=== PATIENT | female | born 1945 | race Caucasian/White ===

== ENCOUNTER → 2016-06-27 | Day surgery (SDC) | payer BC, MEDICARE ==
[~2016-06-27] VITALS: Ht 162.6 cm; Wt 66.7 kg
[~2016-06-27] MED LIST: /WARF25TA; ACET65TA; ALEV220C2 PO; CALCCHW12; IBUPROFEN 600 MG TAB PO PRN; LIDOCAINE 1% MDV 20ML VIAL As Ordered ONE; LIDOCAINE 2% INJ 100 MG/5 ML SDV (FOR ANES.) As Ordered ONE; LR 1,000 ML IV SCH; METOCLOPRAMIDE INJ 10MG/2ML VIAL (J2765) IV PRN; MIDAZOLAM INJ 2 MG/2 ML VIAL (J2250) As Ordered ONE; MULT1TAB18 PO; OMEP20CA3 PO; ONDANSETRON 4MG/2ML VIAL (J2405) IV PRN; PERC5TAB8; PERCOCET 5MG/325MG TAB PO PRN; PRAV10TA PO; PRIL20CA; PROPOFOL 200 MG/20 ML VIAL As Ordered ONE; PROZ20CA; RANI1TAB6 PO; THERGRAN; VITA100054 PO; ZOLO100T PO; fentaNYL 100 MCG/2 ML INJECTION (J3010) As Ordered ONE
[2016-06-27 16:50] VITALS: BP 159/66
--- NOTE | 2016-06-28 08:48 | RO ---
DATE OF PROCEDURE: 06/27/2016 PREPROCEDURE DIAGNOSIS: Thickened endometrium by ultrasound. POSTPROCEDURE DIAGNOSIS: Small polyp. PROCEDURE: Paracervical block with dilation and curettage, MyoSure resection. SURGEON: Dr. Sarah Walker CLINIC PHYSICIAN: ANESTHESIA: Monitored anesthesia care (MAC) with paracervical block. DESCRIPTION OF PROCEDURE: Chandni was brought to the operating room where she was carefully prepped and draped and given sedation. With the cervix then carefully grasped, because she has marked atrophy of the vagina. The regular speculum would not fit, so the pediatric speculum was taken apart and used for the back wall. Then the cervix was grasped under palpation and brought down. A paracervical block of 20 mL in total of 1% lidocaine without was given in 5 mL aliquots at 2, 4, 8 and 10-oclock positions of the cervix. We then waited a full minute for that to set up. Then carefully dilated the cervix. We did not feel any resistance or difficulty but upon placing the hysteroscope in the posterior wall of the uterus at the fold, there was a small perforation. We could see there was no significant bleeding. This is midline, did not appear particularly vascular and we were able to slide pass that with the scope fairly readily and see a normal fundus, normal tubal ostia, and on the left side of the fundus a very small polypoid projections of tissue. These actually looked like endometrial polyps more than fibroids. They really had no solidity and came off with the MyoSure light without difficulty. We were able to sample this atrophic lining quite readily and there was nothing particularly aggressive or vascular. No ulcerations. No hypertrophy, just those tiny soft polyps. We also were able, under direct visualization to sample the endocervical canal so we were able quite readily to safely sample and because of that angle of that tiny perforation, we were able to slide past it and under direct visualization, sample all the way down the canal without any interruption and without any significant deficit, a few 100 mL of saline, so nothing untoward even in this 70-year-old patient. We then decided not to do a blind curettage because we had samples everywhere with the MyoSure under guided sampling and the procedure was then ended. As already noted, we were able to watch that site of small perforation and see that there was no significant bleeding. We removed all of the instruments. Estimated blood loss for the procedure was less than 5 mL. Fluid replacement was Crystalloid. Complications ___none other than__as noted___small perforation not requiring repair or alteration of the procedure. CONDITION AND DISPOSITIONS: Chandni tolerated the procedure well and was recovering in the recovery room in good condition. LEOLA
== END ==
LOC: M SDC 11:00
PROVIDERS: ATTEND Obstetrics & Gynecology
DX: N84.0 Polyp of corpus uteri (principal); N99.71 Accidental puncture and laceration of a genitourinary system organ or structure during a genitourinary system procedure; J44.9 Chronic obstructive pulmonary disease, unspecified; K21.9 Gastro-esophageal reflux disease without esophagitis; F32.9 Major depressive disorder, single episode, unspecified; F41.9 Anxiety disorder, unspecified; M19.90 Unspecified osteoarthritis, unspecified site; N39.3 Stress incontinence (female) (male); M81.0 Age-related osteoporosis without current pathological fracture; Z86.718 Personal history of other venous thrombosis and embolism; K22.70 Barrett's esophagus without dysplasia; R05 Cough; F17.210 Nicotine dependence, cigarettes, uncomplicated; Z79.899 Other long term (current) drug therapy
CPT/HCPCS: 58558; 88305; J2250; J3010

== ENCOUNTER 2017-01-04 09:41 | Emergency (ER) | payer BC ==
[~2017-01-04] VITALS: Ht 162.6 cm; Wt 63.6 kg
[~2017-01-04 09:41] MED LIST changes: -IBUPROFEN 600 MG TAB PO PRN; -LIDOCAINE 1% MDV 20ML VIAL As Ordered ONE; -LIDOCAINE 2% INJ 100 MG/5 ML SDV (FOR ANES.) As Ordered ONE; -LR 1,000 ML IV SCH; -METOCLOPRAMIDE INJ 10MG/2ML VIAL (J2765) IV PRN; -MIDAZOLAM INJ 2 MG/2 ML VIAL (J2250) As Ordered ONE; -ONDANSETRON 4MG/2ML VIAL (J2405) IV PRN; -PERCOCET 5MG/325MG TAB PO PRN; -PRAV10TA PO; +PRAV10TA4 PO; -PROPOFOL 200 MG/20 ML VIAL As Ordered ONE; -fentaNYL 100 MCG/2 ML INJECTION (J3010) As Ordered ONE
[2017-01-04] MEDS ORDERED: BRIM2OPD (09:53)
[2017-01-04] MEDS ORDERED: LATA5OPD (09:53)
[2017-01-04] MEDS ORDERED: PERCOCET 5MG/325MG TAB PO ONE (10:15)
--- NOTE | 2017-01-04 10:56 | REP ---
LUMBOSACRAL SPINE: Five views lumbosacral spine are performed. There is no compression fracture. There is mild anterior spondylolisthesis of L4 on L5 which appears to be due to posterior facet arthropathy. There is mild diffuse spurring. There is mild disc space narrowing and subchondral sclerosis at L4-5. There is sclerosis at the facets of L4-5 and L5-S1. The posterior elements are intact. IMPRESSION: Degenerative changes as above, Without acute fracture. Mild anterior spondylolisthesis of L4 on L5 appears to be due to posterior facet arthropathy that is unchanged since the prior CT scan of 03/16/2016. Signed by Mike Lutz MD 01/04/2017 05:41 P
[2017-01-04] MEDS ORDERED: CYCLOBENZAPRINE 10 MG TAB PO ONE (11:00)
[2017-01-04] MEDS ORDERED: PERC5TAB12 PO (11:56)
[2017-01-04] MEDS ORDERED: CYCL10TA PO (11:56)
[2017-01-04 12:04] VITALS: BP 152/88
== END 2017-01-04 12:06 | disposition home or self-care (01) ==
LOC: M ED 09:41
DX: S33.5XXA Sprain of ligaments of lumbar spine, initial encounter (principal); W18.2XXA Fall in (into) shower or empty bathtub, initial encounter; Y92.002 Bathroom of unspecified non-institutional (private) residence as the place of occurrence of the external cause; Y93.F1 Activity, caregiving, bathing; Y99.8 Other external cause status; M43.16 Spondylolisthesis, lumbar region; M19.90 Unspecified osteoarthritis, unspecified site; E78.5 Hyperlipidemia, unspecified; K21.9 Gastro-esophageal reflux disease without esophagitis; F32.9 Major depressive disorder, single episode, unspecified; I49.9 Cardiac arrhythmia, unspecified; Z79.899 Other long term (current) drug therapy

== ENCOUNTER 2019-12-05 18:40 | Emergency (ER) | payer BC ==
[~2019-12-05] VITALS: Ht 162.6 cm; Wt 64.3 kg
[~2019-12-05 18:40] MED LIST changes: -/WARF25TA; +BRIM2OPD; +COUM1TAB18; +CYCL-707 PO; +LATA0.0013; +OMEP1CAP73 PO; -OMEP20CA3 PO; +PERC5TAB12 PO; +RANI-397 PO; -RANI1TAB6 PO
[2019-12-05] MEDS ORDERED: FAMO40TA3 PO (19:03)
[2019-12-05] MEDS ORDERED: OMEP-218 PO (19:03)
[2019-12-05] MEDS ORDERED: XELP0.00 (19:03)
--- NOTE | 2019-12-05 19:27 | REPVR ---
PROCEDURE INFORMATION: Exam: XR Right Ribs with PA Chest, 3 Views Exam date and time: 12/05/2019 7:07 PM Age: 74 years old Clinical indication: Pain and injury or trauma; Fall; Initial encounter; Rib area; Sprain or strain; Other: Anterior pain TECHNIQUE: Imaging protocol: XR Right ribs 3 views with PA chest. COMPARISON: No relevant prior studies available. FINDINGS: Lungs: Atelectasis right costophrenic angle. Otherwise unremarkable. No consolidation. Pleural space: Unremarkable. Heart/Mediastinum: Unremarkable. No cardiomegaly. Bones/joints: Degenerative changes in the right glenohumeral and acromioclavicular joints. Osteoporosis. Slight indentation of the right 7th rib may represent a minimally displaced fracture. IMPRESSION: Slight indentation of the right 7th rib may represent a minimally displaced fracture. Electronically signed by: Edilberto Huddleston On 12/05/2019 19:27:25 PM
--- NOTE | 2019-12-05 19:29 | REPVR ---
PROCEDURE INFORMATION: Exam: XR Right Wrist Exam date and time: 12/05/2019 7:07 PM Age: 74 years old Clinical indication: Pain and injury or trauma; Fall; Initial encounter; Sprain or strain; Wrist; Right TECHNIQUE: Imaging protocol: XR Right wrist. Views: 3 or more views. COMPARISON: No relevant prior studies available. FINDINGS: Bones/joints: Distal radial and small distal ulnar fractures. Corticated ossicle at the level of the ulnar styloid likely secondary to remote trauma. Osteoporosis. Degenerative changes in the radiocarpal joint and triscaphe joint. Soft tissues: Normal. IMPRESSION: Distal radial and small distal ulnar fractures. Electronically signed by: Edilberto Huddleston On 12/05/2019 19:29:40 PM
[2019-12-05] MEDS ORDERED: NORC1TAB7 PO (20:24)
[2019-12-05] MEDS ORDERED: NORCO, ANEXSIA 5/325MG TABLET (HYDROcodone/ACETAMINOPHEN) PO ONE (20:30)
[2019-12-05 20:45] VITALS: BP 183/80
== END 2019-12-05 20:58 | disposition home or self-care (01) ==
LOC: M ED 18:40
DX: S52.501A Unspecified fracture of the lower end of right radius, initial encounter for closed fracture (principal); S52.601A Unspecified fracture of lower end of right ulna, initial encounter for closed fracture; S22.31XA Fracture of one rib, right side, initial encounter for closed fracture; W01.0XXA Fall on same level from slipping, tripping and stumbling without subsequent striking against object, initial encounter; Y92.098 Other place in other non-institutional residence as the place of occurrence of the external cause; Y93.01 Activity, walking, marching and hiking; Y99.8 Other external cause status; F17.200 Nicotine dependence, unspecified, uncomplicated; J44.9 Chronic obstructive pulmonary disease, unspecified; E78.5 Hyperlipidemia, unspecified; K21.9 Gastro-esophageal reflux disease without esophagitis; M54.9 Dorsalgia, unspecified; F32.9 Major depressive disorder, single episode, unspecified; Z79.899 Other long term (current) drug therapy

== ENCOUNTER 2020-05-04 07:11 | Inpatient (IN) | payer MEDICARE, BC ==
[~2020-05-04] VITALS: Ht 160 cm; Wt 62.5 kg
[~2020-05-04 07:11] MED LIST changes: +D3 +TAB PO; +FAMO40TA3 PO; +NORC1TAB7 PO; +OMEP-218 PO; +REFR0.5D8 OU; +XELP0.00 OU
--- OUTSIDE RECORDS SUMMARY | 2020-05-04 07:16 | CCD ---
Continuity of Care Document (CCD) Created on: 02/12/2020 Chandni Patton External Reference #: [id number] : 1945 Sex: Female Author Author Chandni CAMEJO PA Organization Unknown Address [address] [place] [address], [address] [address] Phone [phone] Care Team Providers Care Charrer Name Role Phone Abhinav Bonilla MD AUTM [phone] Caridad Olivera MD AUTM [phone] Sean Webber MD AUTM [phone] Problems Active Problems Provider Date Spinal stenosis of lumbar region Onset: 02/04/1999 Social History Type Date Description Comments Sex Unknown ETOH Use Occasionally consumes alcohol Tobacco Use Start: Unknown Patient is a current smoker, smo kes every day 1/2 pack a day Allergies, Adverse Reactions, Alerts Description No Known Drug Allergies Medications Active Medications SIG Qnty Indications Ordering Provide r Date Gel-One 30mg/3ML Prsy gel-one injection zhang knee's 02/04/2020 Iid/Ag. Juan Manuel Mtichell MD 02/04/2020 Zoloft 25mg Tablets Unknown Preservision Areds 2 Areds 2 Capsu les 1 by mouth every day Unknown Vitamin D 25mcg (1000 Ut) Tablets 1 by mouth every day Unknown History Medications Tramadol HCL 50mg Tablets 1 every 6 hours as needed pain 18tabs S52.571A D. Misbah Suarez MD 020 - 12/07/2019 Immunizations Description No Information Available Vital Signs Date Vital Result Comment 01/28/2020 9:03am Body Temperature 97.3 F Height 63 inches 5'3" Weight 140.00 lb BMI (Body Mass Index) 24.8 kg/m2 12/08/2019 9:17am Body Temperature 97.0 F Height 64 inches 5'4" Weight 145.00 lb BMI (Body Mass Index) 24.9 kg/m2 Results Description No Information Available Procedures Date Code Description Status 02/04/2020 Inject/Drain Joint/Bursa Major C ompleted 01/28/2020 31297 X-Ray Knee Complete W/Obliques & Tunnel And/Or Standing Views Completed 01/28/2020 16531 X-Ray Hip Unilateral With Pelvis 2-3 Views Completed 01/28/2020 75096 Inject/Drain Joint/Bursa Major C ompleted 01/26/2020 95877 X-Ray Wrist Ap & Lateral 2 Views Completed 12/30/2019 89684 X-Ray Wrist Ap & Lateral 2 Views Completed 12/08/2019 00708 X-Ray Wrist Complete Completed 12/08/2019 60421 FX Distal Radius W/O Manipulatio n Completed Medical Devices Description No Information Available Encounters Type Date Location Provider Dx Diagnosis Office Visit 01/28/2020 8:45a [place] [facility] M17.0 Bilateral primary osteoarthritis of knee 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, left hip Office Visit 01/26/2020 1:15p [place] [facility] S52.571D Oth intartic fx low end r rad, subs for clos fx w routn heal Office Visit 12/08/2019 8:30a [place] [facility] S52.571A Oth intartic fracture of lower end of right radius, init Assessments Date Code Description Provider 02/04/2020 M17.0 Bilateral primary osteoarthritis of knee [place] [facility] 01/28/2020 M17.0 Bilateral primary osteoarthritis of knee [place] [facility] 01/28/2020 M16.12 Unilateral primary osteoarthriti s, left hip [place] [facility] 01/26/2020 S52.571D Other intraarticular fracture of lower end of right radius, subsequent encounter for closed fracture with routine healing [place] [facility] 01/26/2020 S52.571D Other intraarticular fracture of lower end of right radius, subsequent encounter for closed fracture with routine healing [place] [facility] 12/30/2019 S52.571D Other intraarticular fracture of lower end of right radius, subsequent encounter for closed fracture with routine healing [place] [facility] 12/08/2019 S52.571A Other intraarticular fracture of lower end of right radius, initial encounter for closed fracture [place] [facility] Plan of Treatment Future Appointment(s):* 02/25/2020 11:30 am - [facility] at [place] * 02/18/2020 8:30 am - [facility] at [place] 01/28/2020 - [place] [facility]* M17.0 Bilateral primary osteoarthritis of knee * New Orders:* Gel-one Bilateral Knee Injection, Ordered: 01/28/20 * Follow up:* 4 weeks with IID for lt knee recheck * M16.12 Unilateral primary osteoarthritis, left hip Functional Status Description No Information Available Mental Status Description No Information Available Referrals Refer to Dr Reason for Referral Status Appt Date Terence Camejo Pac GEL-ONE INJECTION , 71 NO AUTH REQD BASE ON MED [facility], BUY AND BILL, REF#[id number] PER REHANA, SENT TO SCHED..LD Created [address] [facility] [address] [place] [address] [phone] Terence Camejo Pac L [address] [employer] - Right No authorization required. Patient responsible for 15% Created 0 [address] [facility] [address] [place] [address] [phone]
--- OUTSIDE RECORDS SUMMARY | 2020-05-04 07:16 | CCD | Continuity of Care Document ---
Author Author Rona CAMEJO PA Organization Unknown Address [address] [place] [address], [address] [address] Phone [phone] Care Team Providers Care [employer] Developer Name Role Phone Abhinav Bonilla MD AUTM [phone] Caridad Olivera MD AUTM Sean Webber MD AUTM [phone] Problems Active Problems Provider Date Spinal stenosis [...] injection zhang knee's 02/04/2020 Iid/Ag. Juan Manuel Mitchell MD 02/04/2020 Zoloft 25mg Tablets Unknown Preservision [...] Available Vital Signs Date Vital Result Comment 02/18/2020 8:55am Body Temperature 96.8 F 01/28/2020 9:03am Body Temperature 97.3 F Height 63 inches 5'3" Weight 140.00 lb BMI (Body Mass Index) 24.8 kg/m2 Results Description No Information Available Procedures Date Code Description Status 02/18/2020 83046 X-Ray Wrist Ap & Lateral 2 Views Completed 02/04/2020 13721 Inject/Drain Joint/Bursa Major C ompleted 01/28/2020 11499 X-Ray Knee Complete W/Obliques & Tunnel And/Or Standing Views Completed 01/28/2020 91525 X-Ray Hip Unilateral With Pelvis 2-3 Views Completed 01/28/2020 63668 Inject/Drain Joint/Bursa Major C ompleted 01/26/2020 68671 X-Ray Wrist Ap & Lateral 2 Views Completed 12/30/2019 64499 X-Ray Wrist Ap & Lateral 2 Views Completed 12/08/2019 61159 X-Ray Wrist Complete Completed 12/08/2019 66178 FX Distal Radius W/O Manipulatio n Completed Medical Devices Description No Information Available Encounters Type Date Location Provider Dx Diagnosis Office Visit 02/18/2020 8:30a [place] [facility] S52.571D Oth intartic fx low end r rad, subs for clos fx w routn heal Office Visit 01/28/2020 8:45a [place] [facility] M17.0 Bilateral primary osteoarthritis of knee 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, left hip Office Visit 01/26/2020 1:15p [place] [facility] S52.571D Oth intartic fx low end r rad, subs for clos fx w routn heal Office Visit 12/08/2019 8:30a [place] [facility] S52.571A Oth intartic fracture of lower end of right radius, init Assessments Date Code Description Provider 02/25/2020 M17.0 Bilateral primary osteoarthritis of knee [place] [facility] 02/18/2020 S52.571D Other intraarticular fracture of lower end of right radius, subsequent encounter for closed fracture with routine healing [place] [facility] 02/04/2020 M17.0 Bilateral primary osteoarthritis of knee [place] [facility] 01/28/2020 M17.0 Bilateral primary osteoarthritis of knee [place] [facility] 01/28/2020 M16.12 Unilateral primary osteoarthriti s, left hip Terence I. Drazek, PA 01/26/2020 S52.571D Other intraarticular fracture of lower [...] closed fracture [place] [facility] Plan of Treatment 02/25/2020 - [place] [facility]* M17.0 Bilateral primary osteoarthritis of knee * Follow up:* 8 weeks zhang knees lionel with iid Functional Status Description No Information Available Mental Status Description No Information Available Referrals Refer to Dr Reason for Referral Status Appt Date Terence Camejo Pac GEL-ONE INJECTION 02049, J73 24 NO AUTH REQD BASE ON MED [facility], BUY AND BILL, REF#[id number] PER REHANA, SENT TO SCHED..LD Created [facility] [address] [address] [phone] Terence Camejo I Pac L [address] [employer] - Right No authorization required. Patient responsible for 15% Created [address] [address] [phone]
--- OUTSIDE RECORDS SUMMARY | 2020-05-04 07:16 | CCD | Continuity of Care Document ---
Author Author Chandni CAMEJO PA Organization Unknown Address [address] [place] [address] Phone [phone] Care Team Providers Care Adult Neurologist Name Role Phone Abhinav Bonilla MD AUTM [phone] Caridad Olivera MD AUTM Sean Webber MD AUTM [phone] Problems Active Problems Provider Date Spinal stenosis [...] Available Procedures Date Code Description Status 02/18/2020 95167 X-Ray Wrist Ap & Lateral 2 Views Completed 02/04/2020 10260 Inject/Drain Joint/Bursa Major C ompleted 01/28/2020 59279 X-Ray Knee Complete W/Obliques & Tunnel And/Or Standing Views Completed 01/28/2020 55703 X-Ray Hip Unilateral With Pelvis 2-3 Views Completed 01/28/2020 14137 Inject/Drain Joint/Bursa Major C ompleted 01/26/2020 83448 X-Ray Wrist Ap & Lateral 2 Views Completed 12/30/2019 58514 X-Ray Wrist Ap & Lateral 2 Views Completed 12/08/2019 97297 X-Ray Wrist Complete Completed 12/08/2019 27625 FX Distal Radius W/O Manipulatio n Completed Medical Devices Description No Information Available Encounters Type Date Location Provider Dx Diagnosis Office Visit 02/18/2020 8:30a [place] [facility] S52.571D Oth intartic fx low end r rad, subs for clos fx w routn heal Office Visit 01/28/2020 8:45a [place] [facility] M17.0 Bilateral primary osteoarthritis of knee 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, left hip Office Visit 01/26/2020 1:15p [place] [facility] S52.571D Oth intartic fx low end r rad, subs for clos fx w routn heal Office Visit 12/08/2019 8:30a [place] [facility] S52.571A Oth intartic fracture of lower end of right radius, init Assessments Date Code Description Provider 02/18/2020 S52.571D Other intraarticular fracture of lower [...] 02/25/2020 11:30 am - [place] [facility] [place] 02/18/2020 - [place] [facility]* S52.571D Other intraarticular fracture of lower end of right radius, subsequent encounter for closed fracture with routine healing* Follow up:* prn Functional Status Description No Information Available Mental Status Description No Information Available Referrals Refer to Dr Reason for Referral Status Appt Date Terence Camejo I, Kamar GEL-ONE INJECTION 78119, J73 24 NO AUTH REQD BASE ON MED [facility], BUY AND BILL, REF#[id number] PER REHANA, SENT TO SCHED..LD Created [address] [facility] [address] [place] [address] [phone] Terence Camejo I, Pac L [address] [employer] - Right No authorization required. Patient responsible for 15% Created 0 [address] [facility] [address] [place] [address] [phone]
--- OUTSIDE RECORDS SUMMARY | 2020-05-04 07:16 | CCD | Continuity of Care Document ---
Author Author Rona CHATMAN M.D. Organization Unknown Address [address] [address] Phone [phone] Care Team Providers Care Loan Broker Name Role Phone Sean Chatman MD [facility] [phone] Problems Active Problems Provider Date Chest pain Neli Virgen D.O. Onset: 2011 Note: s/p 2 coronary caths Hyperlipidemia Sean Chatman M.D. Onset: 04/16/2017 Essential hypertension Sean Chatman M.D. Onset: 8 Tobacco user Sean Chatman M.D. Onset: 04/16/2017 Social History Type Date Description Comments Sex Unknown ETOH Use Occasionally consumes beer Tobacco Use Start: Unknown Patient is a current smoker, smo kes every day 1 cigarette a day intermittently Pack last a 1-1 1/2 months Allergies, Adverse Reactions, Alerts Active Allergies Reaction Severity Comments Date Amoxil rash - after finished course 05/07/2009 Medications Active Medications SIG Qnty Indications Ordering Provide r Date Xelpros 0.005% Emulsion via Dr. Meaghan Chatman M.D. 01/13/2020 Famotidine 40mg Tablets 1 by mouth every night 90tabs Sean Chatman M.D. 07/09/2019 Timolol Maleate 0.5% Solution 1 drop both eyes every twice a day (Dr Lester) 5ml Sean Chatman M.D. 02/01/2018 Sertraline HCL 100mg Tablets Take One Tablet By Mouth Every Day 90tabs Sean Chatman M.D. 0 06/08/[address] take one capsule by mouth every day 90caps Abad GarlandD. 05/07/2012 Vitamin D 2000Unit Capsules 1 po qd 30caps Sean Chatman M.D. 09/28/2010 Multivitamins Tablets 1 po q d Neli Virgen D.O. 09/28/2010 Pravastatin Sodium 20mg Tablets take one tablet by mouth every day 90tabs Sean Chatman M.D. 1 05/15/2009 Medications Administered in Office Medication SIG Qnty Indications Ordering Provider Date Immunization Adminstration,1 Vaccine/Tox oid Injection Sean Chatman M.D. 020 Immunization Adminstration,1 Vaccine/Tox oid Injection Sean Chatman M.D. 019 Immunization Adminstration,1 Vaccine/Tox oid Injection Sean Chatman M.D. 018 Immunizations CPT Code Status Date Vaccine Reaction Lot # [id number] Given 01/13/2020 Influenza Vaccin e Quadrivalent Preser/Antibiotic Free Im Use [id number] 04655 Given 03/11/2019 Influenza Vaccin e Quadrivalent Preser/Antibiotic Free Im Use [id number] 50704 Given 02/01/2018 Influenza Virus Vaccine, Quadrivalent (Cciiv4), Derived From Cell [id number] Q2037 Given 02/14/2016 Fluvirin Virus Vaccine 16 [id number] Given 05/07/2013 Fluvirin Virus Vaccine Q2037 Given 03/04/2012 Fluvirin Virus Vaccine 12 [id number] 25131 Given 10/31/2011 PPD 0.0 MM ON 11/02/11 READ BY Montez FITZGERALD LPN 67412 Given 10/23/2011 PPD 80837 Given 05/07/2009 Pneumovax 23 Vital Signs Date Vital Result Comment 01/13/2020 11:23am BP Systolic 160 mmHg BP Diastolic 90 mmHg Heart Rate 78 /min Height 63 inches 5'3" Weight 139.00 lb BMI (Body Mass Index) 24.6 kg/m2 09/12/2019 9:32am BP Systolic 128 mmHg BP Diastolic 78 mmHg Heart Rate 68 /min Height 63 inches 5'3" Weight 141.25 lb BMI (Body Mass Index) 25.0 kg/m2 Results Test Acquired Date Facility Test Result H/L Range Note Complete Blood Count 01/13/2020 [facility] Room Service Supervisor: [place] [address] [phone] WBC 7.2 x10*3/UL 4.1 - 10.9 RBC 4.20 x10*6/UL 4.20 - 6.30 Hemoglobin 12.7 g/dL 12.0 - 18.0 Hematocrit 37.0 % 37.0 - 51.0 MCV 88.1 fL 80.0 - 97.0 MCH 30.3 pg 26.0 - 32.0 MCHC 34.4 g/dL 31.0 - 38.0 RDW 12.8 % 11.6 - 13.7 PLT 344 x10*3/UL 140 - 440 MPV 8.8 FL 7.8 - 11.0 Lymph % 15.4 % 10.0 - 58.5 Mid % 5.9 % 1.7 - 9.3 Neut % 78.7 % 37.0 - 92.0 Lymph # 1.1 x10*3/UL 0.6 - 4.1 Mid # 0.5 x10*3/UL 0.1 - 0.6 Neut # 5.6 x10*3/UL 2.0 - 7.8 Laboratory test finding 01/13/2020 [facility] Room Service Supervisor: [place] [address] [phone] Magnesium 2.0 mg/dL 1.8 - 2.4 Comprehensive Chem Profile 01/13/2020 [facility] Room Service Supervisor: [place] [address] [phone] Glucose 93 mg/dL 74 - 99 1 BUN 18 mg/dL 7 - 18 Creatinine 1.0 mg/dL 0.6 - 1.3 Sodium 142 mEq/L 136 - 145 Potassium 4.2 mEq/L 3.5 - 5.1 Chloride 107 mEq/L 98 - 107 Carbon Dioxide 27 mEq/L 21 - 32 Calcium 8.7 mg/dL 8.5 - 10.1 Alk. Phosphatase 77 mg/dL 46 - 116 Total Bilirubin 0.5 mg/dL 0.2 - 1.0 Ast (Sgot) 15 U/L 15 - 37 Alt (SGPT) 24 U/L 12 - 78 Albumin 3.9 g/dL 3.4 - 5.0 Total Protein 6.9 g/dL 6.4 - 8.2 A/G Ratio 1.30 CALC 1.00 - 1.90 GFR 54 mL/min Low >60 GFR >= 60 mL/min >60 2 Lipid Profile 01/13/2020 [facility] Room Service Supervisor: Dr Sandeep Dixon [place], [place] [id number] [phone] Cholesterol 206 mg/dL High 131 - 200 Triglycerides 153 mg/dL High 30 - 150 HDL Cholesterol 56 mg/dL 35 - 60 LDL (Calculated) 119 CALC 50 - 159 Laboratory test finding 01/13/2020 [facility] Room Service Supervisor: [place] [address] [phone] Thyroid Stimulating Hormone 1.82 uIU/mL 0.3 6 - 3.74 1 100-125 mg/dL PRE-DIABET ES/FASTING >126 mg/dL DIABETES/FASTING 2 CHRONIC KIDNEY DISEASE STAGI NG PER NKF STAGE I & II GFR >= 60 NORMAL TO MILDLY DECREASED STAGE III GFR 30-59 MODERATELY DECREASED STAGE IV GFR 15-29 SEVERELY DECREASED STAGE V GFR <15 VERY LITTLE GFR LEFT ESRD GFR <15 ON CHISEL MORTISER OPERATOR Procedures Date Code Description Status 04/20/2016 [id number] Mammogram Completed 08/07/2013 [id number] Mammogram Completed 01/26/2012 [id number] Bone Mineral Density Test [facility] 08/15/2010 [id number] Colonoscopy Completed 01/04/2010 [id number] Diabetic Retinal Eye Exam [facility] 12/31/2009 [id number] Bone Mineral Density Test [facility] 12/31/2009 [id number] Mammogram Completed Medical Devices Description No Information Available Encounters Type Date Location Provider Dx Diagnosis Office Visit 01/13/2020 11:00a [facility] PDariel Chatman M.D. E78.5 Hyperlipidemia, unspecified J44.9 Chronic obstructive pulmonar y disease, unspecified F17.210 Nicotine dependence, cigaret shannan, uncomplicated K22.70 Castillo's esophagus without dysplasia H40.9 Unspecified glaucoma E55.9 Vitamin D deficiency, unspec ified D64.9 Anemia, unspecified F34.1 Dysthymic disorder Z23 Encounter for immunization E87.6 Hypokalemia Assessments Date Code Description Provider 01/13/2020 E78.5 Hyperlipidemia, unspecified Miguel Chatman M.D. 01/13/2020 J44.9 Chronic obstructive pulmonary di sease, unspecified Sean Chatman M.D. 01/13/2020 F17.210 Nicotine dependence, cigarettes, uncomplicated Sean Chatman M.D. 01/13/2020 K22.70 Castillo's esophagus without dysp lasia Sean Chatman M.D. 01/13/2020 H40.9 Unspecified glaucoma Sean butler M.D. 01/13/2020 E55.9 Vitamin D deficiency, unspecifie d Sean Chatman M.D. 01/13/2020 D64.9 Anemia, unspecified Sean wall M.D. 01/13/2020 F34.1 Dysthymic disorder Sean mckinney M.D. 01/13/2020 Z23 Encounter for immunization Sean Chatman M.D. 01/13/2020 E87.6 Hypokalemia Sean Chatman M.D. Plan of Treatment Future Appointment(s):* 07/13/2020 9:00 am - Sean Chatman M.D. at [facility] 01/13/2020 - Sean Chatman M.D.* E78.5 Hyperlipidemia, unspecified * J44.9 Chronic obstructive pulmonary disease, unspecified * F17.210 Nicotine dependence, cigarettes, uncomplicated * K22.70 Castillo's esophagus without dysplasia * H40.9 Unspecified glaucoma * E55.9 Vitamin D deficiency, unspecified * D64.9 Anemia, unspecified * F34.1 Dysthymic disorder * Z23 Encounter for immunization * E87.6 Hypokalemia * * Comments:* 1. Hyperlipidemia: Elevated cholesterol and TGs in August 2019. Repeat lipid profile is ordered today. We will continue to monitor the patient's symptoms.2. GERD - Requires 2 medicines and not interested in weaning. Patient is advised to take Famotidine 40 mg tablet at night for decreased acid production at night. She follows with Dr. Harding.3. Smoking Cessation: Patient continues to smoke half-packet cigarette. Smoking cessation discussed with the patient in detail. Patient verbalized understanding.4. Hypokalemia: Did not have labs, will evaluate when available. Ongoing care. I am going to see her again in 6 months with updated labs. If she has new problems or issues sooner she will let us know. Functional Status Description No Information Available Mental Status Description No Information Available Referrals Description No Information Available
--- OUTSIDE RECORDS SUMMARY | 2020-05-04 07:16 | CCD | Continuity of Care Document ---
Author Author Rona HARDING M.D. Organization Unknown Address [address] [place] [address] Phone [phone] Care Team Providers Care Commercial Credit Lead Name Role Phone Sean Webber M.D. AUTM [phone] Problems Active Problems Provider Date Castillo's esophagus Irvin Harding M.D. Onset: 04/27/19 21 Gastroesophageal reflux disease Dilan Brandt Ons et: 09/03/2014 Social History Type Date Description Comments Sex Unknown ETOH Use Rarely consumes alcohol Tobacco Use Start: Unknown Patient is a current smoker, smo kes every day Allergies, Adverse Reactions, Alerts Description No Known Drug Allergies Medications Active Medications SIG Qnty Indications Ordering Provide r Date Omeprazole 20mg Capsules Stephany Kraus,DO Pravastatin Sodium 20mg Tablets Stephany Espino,DO Vitamin D3 2000Unit Capsules Unknown Sertraline HCL 100mg Tablets Take One Tablet By Mouth Every Day Unknown Centrum Silver Tablets daily Unknown Xelpros 0.005% Emulsion Instill 1 Drop Daily In Each Eye Nightly Unknown Famotidine 40mg Tablets Sean Webber M.D. Refresh 1.4-0.6% Solution Unknown Immunizations Description No Information Available Vital Signs Date Vital Result Comment 04/27/2020 11:09am Height 64 inches 5'4" Weight 138.00 lb BP Systolic 127 mmHg BP Diastolic 81 mmHg Heart Rate 66 /min BMI (Body Mass Index) 23.7 kg/m2 Weight 62.597 kg Body Temperature 65.4 F 02/08/2017 10:38am Height 64 inches 5'4" Weight 142.00 lb BP Systolic 126 mmHg BP Diastolic 78 mmHg Heart Rate 67 /min BMI (Body Mass Index) 24.4 kg/m2 Weight 64.411 kg Results Description No Information Available Procedures Description No Information Available Medical Devices Description No Information Available Encounters Description No Information Available Assessments Date Code Description Provider 04/27/2020 K22.70 Castillo's esophagus without dysp lasia Irvin Harding M.D. 04/27/2020 K21.9 Gastro-esophageal reflux disease without esophagitis Irvin Harding M.D. Plan of Treatment Future Appointment(s):* 05/10/2020 1:30 pm - Irvin Harding M.D. at Main Office 04/27/2020 - Irvin Harding M.D.* K22.70 Castillo's esophagus without dysplasia* Comments:* 74 yo wf who presents for an egd for Castillo's. Last scope was in 2016. No c/o abdominal pain, weight loss, change in bowel habits, or rectal bleeding. No family h/o colon cancer. No h/o chest pain, or sob. Plan:1. Egd + bx2. Informed consent. * K21.9 Gastro-esophageal reflux disease without esophagitis* Comments:* As above. Functional Status Description No Information Available Mental Status Description No Information Available Referrals Description No Information Available
--- OUTSIDE RECORDS SUMMARY | 2020-05-04 07:16 | CCD | Continuity of Care Document ---
Author Author Rona CAMEJO PA Organization Unknown Address [address] [place] [address], [address] [address] Phone [phone] Care Team Providers Care Ve Teacher Name Role Phone Abhinav Bonilla MD AUTM [phone] Caridad Olivera MD AUTM Sean Webber MD AUTM [phone] Problems Active Problems Provider Date Spinal stenosis [...] Available Procedures Date Code Description Status 02/18/2020 26461 X-Ray Wrist Ap & Lateral 2 Views Completed 02/04/2020 90123 Inject/Drain Joint/Bursa Major C ompleted 01/28/2020 92039 X-Ray Knee Complete W/Obliques & Tunnel And/Or Standing Views Completed 01/28/2020 41570 X-Ray Hip Unilateral With Pelvis 2-3 Views Completed 01/28/2020 62979 Inject/Drain Joint/Bursa Major C ompleted 01/26/2020 93364 X-Ray Wrist Ap & Lateral 2 Views Completed 12/30/2019 32751 X-Ray Wrist Ap & Lateral 2 Views Completed 12/08/2019 92937 X-Ray Wrist Complete Completed 12/08/2019 16295 FX Distal Radius W/O Manipulatio n Completed Medical Devices Description No Information Available Encounters Type Date Location Provider Dx Diagnosis Office Visit 02/18/2020 8:30a [place] S52.571D Oth intartic fx low end r rad, subs for clos fx w routn heal Office Visit 01/28/2020 8:45a [place] M17.0 Bilateral primary osteoarthritis of knee 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 Patient responsible for 15% Created [address] [address] [phone]
--- OUTSIDE RECORDS SUMMARY | 2020-05-04 07:16 | CCD | Continuity of Care Document ---
Author Author Chandni CAMEJO PA Organization Unknown Address [address] [place] [address], [address] [address] Phone [phone] Care Team Providers Care Melt Down Furnace Operator Name Role Phone Abhinav Bonilla MD AUTM [phone] Caridad Olivera MD AUTM [phone] Sean Webber MD AUTM [phone] Problems Active Problems Provider Date Spinal stenosis [...] Available Procedures Date Code Description Status 02/04/2020 79375 Inject/Drain Joint/Bursa Major C ompleted 01/28/2020 90351 X-Ray Knee Complete W/Obliques & Tunnel And/Or Standing Views Completed 01/28/2020 11741 X-Ray Knee Complete W/Obliques & Tunnel And/Or Standing Views Completed 01/28/2020 01718 X-Ray Hip Unilateral With Pelvis 2-3 Views Completed 01/26/2020 19149 X-Ray Wrist Ap & Lateral 2 Views Completed 12/30/2019 85233 X-Ray Wrist Ap & Lateral 2 Views Completed 12/08/2019 99690 X-Ray Wrist Complete Completed 12/08/2019 32975 FX Distal Radius W/O Manipulatio n Completed Medical Devices Description No Information Available Encounters Type Date Location Provider Dx Diagnosis Office Visit 01/28/2020 8:45a [place] M17.0 Bilateral primary osteoarthritis of knee 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, left hip Office Visit 01/26/2020 1:15p [place] S52.571D Oth intartic fx low end r rad, subs for clos fx w routn heal Office Visit 12/08/2019 8:30a [place] S52.571A Oth intartic fracture of [...] 02/25/2020 11:30 am - [facility] [place] * 02/18/2020 8:30 am - [facility] [place] 01/28/2020 - [place]* M17.0 Bilateral primary [...] Appt Date Terence Camejo Pac GEL-ONE INJECTION NO AUTH REQD BASE ON MED [facility], BUY AND BILL, REF#[id number] MOHIT KIMBALL, SENT TO SCHED..LD Created [facility] [address] [place] [address] [phone] Terence Camejo Pac L [address] [place] [employer] - Right No authorization required. Patient responsible for 15% Created 0 [facility] [address] [place] [address] [phone]
--- OUTSIDE RECORDS SUMMARY | 2020-05-04 07:16 | CCD | Continuity of Care Document ---
Author Author Rona HARDING M.D. Organization Unknown Address [address] [place] [address] Phone [phone] Care Team Providers Care Substance Abuse Services Director Name Role Phone Sean Webber M.D. AUTM [phone] Problems Active Problems Provider Date Castillo's esophagus [...] Date Location Provider Dx Diagnosis Office Visit 04/27/2020 11:00a Main Office Irvin Harding M.D. K 22.70 Castillo's esophagus without dysplasia K21.9 Gastro-esophageal reflux dis ease without esophagitis Assessments Date Code Description Provider 04/27/2020 K22.70 [...] egd for Castillo's. Last scope was in 2017. No c/o abdominal pain, weight loss, change [...]
--- OUTSIDE RECORDS SUMMARY | 2020-05-04 07:16 | CCD | Continuity of Care Document ---
Author Author Chandni CAMEJO PA Organization Unknown Address [address] [place] [address], [address] [address] Phone [phone] Care Team Providers Care Principal Clerk Name Role Phone Abhinav Bonilla MD AUTM [phone] Caridad Olivera MD AUTM [phone] Sean Webber MD AUTM [phone] Problems Active Problems Provider Date Spinal stenosis [...] 02/04/2020 Inject/Drain Joint/Bursa Major C ompleted 01/28/2020 28355 X-Ray Knee Complete W/Obliques & Tunnel And/Or Standing Views Completed 01/28/2020 06738 X-Ray Hip Unilateral With Pelvis 2-3 Views Completed 01/28/2020 53684 Inject/Drain Joint/Bursa Major C ompleted 01/26/2020 34014 X-Ray Wrist Ap & Lateral 2 Views Completed 12/30/2019 83146 X-Ray Wrist Ap & Lateral 2 Views Completed 12/08/2019 39179 X-Ray Wrist Complete Completed 12/08/2019 96252 FX Distal Radius W/O Manipulatio n Completed Medical Devices Description No Information Available Encounters Type Date Location Provider Dx Diagnosis Office Visit 01/28/2020 8:45a [place] M17.0 Bilateral primary osteoarthritis of knee 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, left hip Office Visit 01/26/2020 1:15p [place] S52.571D Oth intartic fx low end r rad, subs for clos fx w routn heal Office Visit 12/08/2019 8:30a [place] S52.571A Oth intartic fracture of [...] 02/25/2020 11:30 am - [facility] [place] * 02/18/2020 8:30 am - [facility] [place] 01/28/2020 - [place]* M17.0 Bilateral primary [...] 73 NO AUTH REQD BASE ON MED [facility], BUY AND BILL, REF#[id number] PER REHANA, SENT TO SCHED..LD Created [address] [facility] [address] [place] [address] [phone] Terence Camejo Pac L [address] [place] [employer] - Right No authorization required. Patient responsible for 15% Created 0 [address] [facility] [address] [place] [address] [phone]
--- OUTSIDE RECORDS SUMMARY | 2020-05-04 07:16 | CCD | Continuity of Care Document ---
Author Author Rona CAMEJO PA Organization Unknown Address [address] [place] [address], [address] [address] Phone [phone] Care Team Providers Care Inclusion Intern Name Role Phone Abhinav Bonilla MD AUTM [phone] Caridad Olivera MD AUTM [phone] Sean Webber MD AUTM [phone] Problems Active Problems Provider Date Spinal stenosis [...] Available Procedures Date Code Description Status 02/18/2020 03729 X-Ray Wrist Ap & Lateral 2 Views Completed 02/04/2020 54761 Inject/Drain Joint/Bursa Major C ompleted 01/28/2020 37471 X-Ray Knee Complete W/Obliques & Tunnel And/Or Standing Views Completed 01/28/2020 39813 X-Ray Hip Unilateral With Pelvis 2-3 Views Completed 01/28/2020 14898 Inject/Drain Joint/Bursa Major C ompleted 01/26/2020 28871 X-Ray Wrist Ap & Lateral 2 Views Completed 12/30/2019 85927 X-Ray Wrist Ap & Lateral 2 Views Completed 12/08/2019 75527 X-Ray Wrist Complete Completed 12/08/2019 68291 FX Distal Radius W/O Manipulatio n Completed Medical Devices Description No Information Available Encounters Type Date Location Provider Dx Diagnosis Office Visit 02/18/2020 8:30a [place] S52.571D Oth intartic fx low end r rad, subs for clos fx w routn heal Office Visit 01/28/2020 8:45a [place] M17.0 Bilateral primary osteoarthritis of knee 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, left hip Office Visit 01/26/2020 1:15p [place] S52.571D Oth intartic fx low end r rad, subs for clos fx w routn heal Office Visit 12/08/2019 8:30a [place] S52.571A Oth intartic fracture of [...] up:* 8 weeks zhang knees lionel with IID Functional Status Description No Information Available Mental Status Description No Information Available Referrals Refer to Dr Reason for Referral Status Appt Date Terence Camejo Pac GEL-ONE INJECTION 40590, J73 26 NO AUTH REQD BASE ON MED [facility], BUY AND BILL, REF#[id number] PER REHANA, SENT TO SCHED..LD Created [facility] [address] [address] [phone] Terence Camejo I Pac L [address] [place] [employer] - Right No authorization required. Patient responsible for 15% Created [address] [address] [phone]
--- OUTSIDE RECORDS SUMMARY | 2020-05-04 07:17 | CCD | Continuity of Care Document ---
Author Author Chandni CAMEJO PA Organization Unknown Address [address] [place] [address], [address] [address] Phone [phone] Care Team Providers Care Sales Hunter Name Role Phone Abhinav Bonilla MD AUTM [phone] Caridad Olivera MD AUTM [phone] Sean Webber MD AUTM [phone] Problems Active Problems Provider Date Spinal stenosis [...] Available Procedures Date Code Description Status 02/04/2020 44159 Inject/Drain Joint/Bursa Major C ompleted 01/28/2020 00861 X-Ray Knee Complete W/Obliques & Tunnel And/Or Standing Views Completed 01/28/2020 36912 X-Ray Knee Complete W/Obliques & Tunnel And/Or Standing Views Completed 01/28/2020 40704 X-Ray Hip Unilateral With Pelvis 2-3 Views Completed 01/26/2020 34809 X-Ray Wrist Ap & Lateral 2 Views Completed 12/30/2019 80896 X-Ray Wrist Ap & Lateral 2 Views Completed 12/08/2019 03583 X-Ray Wrist Complete Completed 12/08/2019 05802 FX Distal Radius W/O Manipulatio n Completed Medical Devices Description No Information Available Encounters Type Date Location Provider Dx Diagnosis Office Visit 01/28/2020 8:45a [place] M17.0 Bilateral primary osteoarthritis of knee 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, left hip Office Visit 01/26/2020 1:15p [place] [facility] S52.571D Oth intartic fx low end r rad, subs for clos fx w routn heal Office Visit 12/08/2019 8:30a [place] S52.571A Oth intartic fracture of lower end of right radius, init Assessments Date Code Description Provider 02/04/2020 M17.0 Bilateral primary osteoarthritis of knee [place] [facility] 01/28/2020 M17.0 Bilateral primary osteoarthritis of knee [place] [facility] 01/28/2020 M16.12 Unilateral primary osteoarthriti s, [...] 02/25/2020 11:30 am - [place] [facility] [place] * 02/18/2020 8:30 am - [facility] [place] 01/28/2020 - [place] [facility]* M17.0 Bilateral primary osteoarthritis of knee * New Orders:* Gel-one Bilateral Knee Injection, Ordered: 01/28/20 * Follow up:* 4 weeks with IID for lt knee recheck * M16.12 Unilateral primary osteoarthritis, left hip Functional Status Description No Information Available Mental Status Description No Information Available Referrals Refer to Reason for Referral Status Appt Date Terence Camejo Pac GEL-ONE INJECTION 97456, J73 26 NO AUTH REQD BASE ON MED [facility], BUY AND BILL, REF#[id number] MOHIT KIMBALL[facility]LD Created [address] [address] [phone] Terence Camejo Pac L [address] [place] [employer]ace - Right No authorization required. Patient responsible for 15% Created [address] [address] [phone]
--- OUTSIDE RECORDS SUMMARY | 2020-05-04 07:17 | CCD | Continuity of Care Document ---
Author Author Chandni CAMEJO PA Organization Unknown Address [address] [place] [address], [address] [address] Phone [phone] Care Team Providers Care Ballistic Technician Name Role Phone Abhinav Bonilla MD [facility] [phone] Caridad Olivera MD AUTM Sean Webber MD [facility] [phone] Problems Active Problems Provider Date Spinal stenosis [...] Available Procedures Date Code Description Status 02/04/2020 66331 Inject/Drain Joint/Bursa Major C ompleted 01/28/2020 63352 X-Ray Knee Complete W/Obliques & Tunnel And/Or Standing Views Completed 01/28/2020 73117 X-Ray Knee Complete W/Obliques & Tunnel And/Or Standing Views Completed 01/28/2020 71495 X-Ray Hip Unilateral With Pelvis 2-3 Views Completed 01/26/2020 13649 X-Ray Wrist Ap & Lateral 2 Views Completed 12/30/2019 06057 X-Ray Wrist Ap & Lateral 2 Views Completed 12/08/2019 69616 X-Ray Wrist Complete Completed 12/08/2019 96931 FX Distal Radius W/O Manipulatio n Completed Medical Devices Description No Information Available Encounters Type Date Location Provider Dx Diagnosis Office Visit 01/28/2020 8:45a [place] [facility] M17.0 Bilateral primary osteoarthritis of knee 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, left hip Office Visit 01/26/2020 1:15p [place] [facility] S52.571D Oth intartic fx low end r rad, subs for clos fx w routn heal Office Visit 12/08/2019 8:30a [place] [facility] S52.571A Oth intartic fracture of [...] 02/25/2020 11:30 am - [facility] at [place] * 02/18/2020 8:30 am - [facility] [place] 01/28/2020 - [place] [facility]* M17.0 Bilateral primary osteoarthritis of knee * New Orders:* Gel-one Bilateral Knee Injection, Ordered: 01/28/20 * Follow up:* 4 weeks with IID for lt knee recheck * M16.12 Unilateral primary osteoarthritis, left hip Functional Status Description No Information Available Mental Status Description No Information Available Referrals Refer to Reason for Referral Status Appt Date Terence Camejo Pac GEL-ONE INJECTION 00443, J73 26 NO AUTH REQD BASE ON [facility], BUY AND BILL, REF#[id number] MOHIT KIMBALL, SENT TO [facility]..LD Created [address] [address] [phone] Terence Camejo Pac L [address] [place] [employer] - Right No authorization required. Patient responsible for 15% Created [address] [address] [phone]
--- OUTSIDE RECORDS SUMMARY | 2020-05-04 07:17 | CCD | Continuity of Care Document ---
Author Author Rona CHATMAN M.D. Organization Unknown Address [address] [address] Phone [phone] Care Team Providers Care Sports Book Server Name Role Phone Sean Chatman MD [facility] [phone] Problems Active Problems Provider Date Chest pain [...] Code Status Date Vaccine Reaction Lot # [id number] Given 01/13/2020 Influenza Vaccin e Quadrivalent Preser/Antibiotic Free Im Use [id number] 54204 Given 03/11/2019 Influenza Vaccin e Quadrivalent Preser/Antibiotic Free Im Use [id number] 48835 Given 02/01/2018 Influenza Virus Vaccine, Quadrivalent (Cciiv4), Derived From Cell [id number] Q2037 Given 02/14/2016 Fluvirin Virus Vaccine 16 [id number] Given 05/07/2013 Fluvirin Virus Vaccine Q2037 Given 03/04/2012 Fluvirin Virus Vaccine 12 14906 98338 Given 10/31/2011 PPD 0.0 MM ON 11/02/11 READ BY Montez FITZGERALD LPN 67873 Given 10/23/2011 PPD 36071 Given 05/07/2009 Pneumovax 23 Vital Signs Date [...] H/L Range Note Complete Blood Count 01/13/2020 [facility] claudine sheth Public Safety Director: [place] [address] [phone] WBC 7.2 x10*3/UL 4.1 - 10.9 RBC [...] 2.0 - 7.8 Laboratory test finding 01/13/2020 [facility] clauidne aceves Public Safety Director: [place] [address] [phone] Magnesium 2.0 mg/dL 1.8 - 2.4 Comprehensive Chem Profile 01/13/2020 [facility]aud[facility] bellamy Public Safety Director: [place] [address] [phone] Glucose 93 mg/dL 74 - 99 1 [...] 60 mL/min >60 2 Lipid Profile 01/13/2020 [facility] Public Safety Director: Dr Sandeep Dixon [place], [place] [id number] [phone] Cholesterol 206 mg/dL High 131 - 200 Triglycerides 153 mg/dL High 30 - 150 HDL Cholesterol 56 mg/dL 35 - 60 LDL (Calculated) 119 CALC 50 - 159 Laboratory test finding 01/13/2020 [facility] claudine aceves Public Safety Director: [place] [address] [phone] Thyroid Stimulating Hormone 1.82 uIU/mL 0.3 6 - 3.74 Basic Metabolic Panel 09/17/2019 [facility] Public Safety Director: [place] [address] [phone] Glucose 81 mg/dL 74 - 99 3 BUN 21 mg/dL High 7 - 18 Creatinine 1.0 mg/dL 0.6 - 1.3 Sodium 145 mEq/L 136 - 145 Potassium 3.4 mEq/L Low 3.5 - 5.1 Chloride 108 mEq/L High 98 - 107 Carbon Dioxide 26 mEq/L 21 - 32 Calcium 8.4 mg/dL Low 8.5 - 10.1 GFR 54 mL/min Low >60 GFR >= 60 mL/min >60 4 Laboratory test finding 09/11/2019 [facility] claudine aceves Public Safety Director: [place] [address] [phone] Vitamin D 25-Hydroxy 74.2 24.0 - 80.0 5 Comprehensive Chem Profile 09/11/2019 [facility] claud[facility] bellamy Public Safety Director: [place] [address] [phone] Glucose 96 mg/dL 74 - 99 6 BUN 29 mg/dL High 7 - 18 Creatinine 1.5 mg/dL High 0.6 - 1.3 Sodium 141 mEq/L 136 - 145 Potassium 4.4 mEq/L 3.5 - 5.1 Chloride 102 mEq/L 98 - 107 Carbon Dioxide 29 mEq/L 21 - 32 Calcium 9.8 mg/dL 8.5 - 10.1 Alk. Phosphatase 95 mg/dL 46 - 116 Total Bilirubin 0.8 mg/dL 0.2 - 1.0 Ast (Sgot) 18 U/L 15 - 37 Alt (SGPT) 29 U/L 12 - 78 Albumin 4.1 g/dL 3.4 - 5.0 Total Protein 7.3 g/dL 6.4 - 8.2 A/G Ratio 1.28 CALC 1.00 - 1.90 GFR 34 mL/min Low >60 GFR 41 mL/min Low >60 7 Lipid Profile 09/11/2019 [facility] Public Safety Director: [place] [address] [phone] Cholesterol 237 mg/dL High 131 - 200 Triglycerides 167 mg/dL High 30 - 150 HDL Cholesterol 69 mg/dL High 35 - 60 LDL (Calculated) 135 CALC 50 - 159 Laboratory test finding 09/11/2019 [facility] Public Safety Director: [place] [address] [phone] Thyroid Stimulating Hormone 2.11 uIU/mL 0.3 6 - 3.74 1 100-125 mg/dL PRE-DIABET ES/FASTING >126 mg/dL DIABETES/FASTING 2 CHRONIC KIDNEY DISEASE STAGI NG PER NKF STAGE I & II GFR >= 60 NORMAL TO MILDLY DECREASED STAGE III GFR 30-59 MODERATELY DECREASED STAGE IV GFR 15-29 SEVERELY DECREASED STAGE V GFR <15 VERY LITTLE GFR LEFT ESRD GFR <15 ON IMPREGNATOR 3 100-125 mg/dL PRE-DIABET ES/FASTING >126 mg/dL DIABETES/FASTING 4 CHRONIC KIDNEY DISEASE STAGI NG PER NKF STAGE I & II GFR >= 60 NORMAL TO MILDLY DECREASED STAGE III GFR 30-59 MODERATELY DECREASED STAGE IV GFR 15-29 SEVERELY DECREASED STAGE V GFR <15 VERY LITTLE GFR LEFT ESRD GFR <15 ON IMPREGNATOR 5 This test was performed jasen [employer] Vitamin D immunoassay kit. Values obtained with different assay methods should not be used interchangeably. 6 100-125 mg/dL PRE-DIABET ES/FASTING >126 mg/dL DIABETES/FASTING 7 CHRONIC KIDNEY DISEASE STAGI NG PER NKF STAGE I & II GFR >= 60 NORMAL TO MILDLY DECREASED STAGE III GFR 30-59 MODERATELY DECREASED STAGE IV GFR 15-29 SEVERELY DECREASED STAGE V GFR <15 VERY LITTLE GFR LEFT ESRD GFR <15 ON IMPREGNATOR Procedures Date Code Description Status 04/20/2016 [id number] Mammogram Completed 08/07/2013 [id number] Mammogram Completed 01/26/2012 [id number] Bone Mineral Density Test Comple drew 08/15/2010 [id number] Colonoscopy Completed 01/04/2010 [id number] Diabetic Retinal Eye Exam Comple [facility] 12/31/2009 [id number] Bone Mineral Density Test Comple [facility] 12/31/2009 [id number] Mammogram Completed Medical Devices Description No Information Available Encounters Type Date Location Provider Dx Diagnosis Office Visit 01/13/2020 11:00a [facility] Sean Chatman M.D. E78.5 Hyperlipidemia, unspecified J44.9 Chronic [...] Chatman M.D. 01/13/2020 H40.9 Unspecified glaucoma Sean Miguel iteAlexis 01/13/2020 E55.9 Vitamin D deficiency, unspecifie d Sean Chatman M.D. 01/13/2020 D64.9 Anemia, unspecified Sean Migueli Alexis wall 01/13/2020 F34.1 Dysthymic disorder Sean mckinney M.D. 01/13/2020 Z23 Encounter for immunization Sean Chatman M.D. 01/13/2020 E87.6 Hypokalemia Sean Chatman M.D. 09/17/2019 E78.5 Hyperlipidemia, unspecified Miguel Chatman M.D. 09/17/2019 E78.5 Hyperlipidemia, unspecified Lab Schedule 09/17/2019 J44.9 Chronic obstructive pulmonary di sease, unspecified Sean Chatman M.D. 09/17/2019 J44.9 Chronic obstructive pulmonary di sease, unspecified Lab Schedule 09/12/2019 E78.5 Hyperlipidemia, unspecified Miguel Chatman M.D. 09/12/2019 J44.9 Chronic obstructive pulmonary di sease, unspecified Sean Chatman M.D. 09/12/2019 F17.210 Nicotine dependence, cigarettes, uncomplicated Sean Chatman M.D. 09/12/2019 K22.70 Castillo's esophagus without dysp lasia Sean Chatman M.D. 09/12/2019 H40.9 Unspecified glaucoma Sean butler M.D. 09/12/2019 E55.9 Vitamin D deficiency, unspecifie d Sean Chatman M.D. 09/12/2019 D64.9 Anemia, unspecified Sean wall M.D. 09/12/2019 F34.1 Dysthymic disorder Sean mckinney M.D. 09/12/2019 R94.4 Abnormal results of kidney funct ion studies Sean Chatman M.D. 09/11/2019 E78.5 Hyperlipidemia, unspecified Miguel Chatman M.D. 09/11/2019 E78.5 Hyperlipidemia, unspecified Lab Schedule 09/11/2019 E55.9 Vitamin D deficiency, unspecifie d Sean Chatman M.D. 09/11/2019 E55.9 Vitamin D deficiency, unspecifie d Lab Schedule Plan of Treatment Future Appointment(s):* 07/13/2020 9:00 am - [facility] 01/13/2020 - Sean Chatman M.D.* E78.5 [...]
--- OUTSIDE RECORDS SUMMARY | 2020-05-04 07:17 | CCD ---
Author Author [facility] Organization [facility] Address Unknown Phone Unavailable Care Team Providers Care Science Technicians Name Role Phone Altagracia Harding MD Unavailable Unavailable Altagracia Harding MD Unavailable Unavailable Altagracia Harding MD Unavailable Unavailable Altagracia Harding MD Unavailable Unavailable Altagracia Harding MD Unavailable Unavailable Altagracia Harding MD Unavailable Unavailable Altagracia Harding MD Unavailable Unavailable Altagracia Harding MD Unavailable Unavailable Altagracia Harding MD Unavailable Unavailable Altagracia Harding MD Unavailable Unavailable Altagracia Harding MD Unavailable Unavailable Altagracia Harding MD Unavailable Unavailable Altagracia Harding MD Unavailable Unavailable Altagracia Harding MD Unavailable Unavailable Altagracia Harding MD Unavailable Unavailable Altagracia Harding MD Unavailable Unavailable Altagracia Harding MD Unavailable Unavailable Altagracia Harding MD Unavailable Unavailable Altagracia Harding MD Unavailable Unavailable Altagracia Harding MD Unavailable Unavailable Altagracia Harding MD Unavailable Unavailable Altagracia Harding MD Unavailable Unavailable Altagracia Harding MD Unavailable Unavailable Altagracia Harding MD Unavailable Unavailable Altagracia Harding MD Unavailable Unavailable Altagracia Harding MD Unavailable Unavailable Altagracia Harding MD Unavailable Unavailable Altagracia Harding MD Unavailable Unavailable Altagracia Harding MD Unavailable Unavailable lAtagracia Harding MD Unavailable Unavailable Altagracia Harding MD Unavailable Unavailable Altagracia Harding MD Unavailable Unavailable Altagracia Harding MD Unavailable Unavailable Altagracia Harding MD Unavailable Unavailable Altagracia Harding MD Unavailable Unavailable Altagracia Harding MD Unavailable Unavailable Altagracia Harding MD Unavailable Unavailable Altagracia Harding MD Unavailable Unavailable Altagracia Harding MD Unavailable Unavailable Altagracia Harding MD Unavailable Unavailable Altagracia Harding MD Unavailable Unavailable Altagracia Harding MD Unavailable Unavailable Altagracia Harding MD Unavailable Unavailable Altagracia Harding MD Unavailable Unavailable Altagracia Harding MD Unavailable Unavailable Altagracia Harding MD Unavailable Unavailable Altagracia Harding MD Unavailable Unavailable DRAZEK, I CONSUELO PA Unavailable Unavailable DRAZEK, I CONSUELO PA Unavailable Unavailable DRAZEK, I CONSUELO PA Unavailable Unavailable DRAZEK, I CONSUELO PA Unavailable Unavailable DRAZEK, I CONSUELO PA Unavailable Unavailable DRAZEK, I CONSUELO PA Unavailable Unavailable DRAZEK, I CONSUELO PA Unavailable Unavailable DRAZEK, I CONSUELO PA Unavailable Unavailable DRAZEK, I CONSUELO PA Unavailable Unavailable DRAZEK, I CONSUELO PA Unavailable Unavailable DRAZEK, I CONSUELO PA Unavailable Unavailable DRAZEK, I CONSUELO PA Unavailable Unavailable DRAZEK, I CONSUELO PA Unavailable Unavailable DRAZEK, I CONSUELO PA Unavailable Unavailable DRAZEK, I CONSUELO PA Unavailable Unavailable DRAZEK, I CONSUELO PA Unavailable Unavailable DRAZEK, I CONSUELO PA Unavailable Unavailable DRAZEK, I CONSUELO PA Unavailable Unavailable DRAZEK, I CONSUELO PA Unavailable Unavailable DRAZEK, I CONSUELO PA Unavailable Unavailable DRAZEK, I CONSUELO PA Unavailable Unavailable DRAZEK, I CONSUELO PA Unavailable Unavailable DRAZEK, I CONSUELO PA Unavailable Unavailable DRAZEK, I CONSUELO PA Unavailable Unavailable DRAZEK, I CONSUELO PA Unavailable Unavailable DRAZEK, I CONSUELO PA Unavailable Unavailable DRAZEK, I CONSUELO PA Unavailable Unavailable DRAZEK, I CONSUELO PA Unavailable Unavailable DRAZEK, I CONSUELO PA Unavailable Unavailable DRAZEK, I CONSUELO PA Unavailable Unavailable Tra Webber MD Unavailable Unavailable Tra Webber MD Unavailable Unavailable Tra Webber MD Unavailable Unavailable Akbar F Sean VANCE Unavailable Unavailable Akbar F Sean VANCE Unavailable Unavailable Akbar F Sean VANCE Unavailable Unavailable Akbar F Sean VANCE Unavailable Unavailable Tra Webber MD Unavailable Unavailable Tra Webber MD Unavailable Unavailable Akbar F Sean VANCE Unavailable Unavailable Akbar F Sean VANCE Unavailable Unavailable Akbar F Sean VANCE Unavailable Unavailable Akbar F Sean VANCE Unavailable Unavailable Akbar F Sean VANCE Unavailable Unavailable Akbar F Sean VANCE Unavailable Unavailable Akbar F Sean VANCE Unavailable Unavailable Tra Webber MD Unavailable Unavailable Tra Webber MD Unavailable Unavailable Tra Webber MD Unavailable Unavailable Tra Webber MD Unavailable Unavailable Tra Webber MD Unavailable Unavailable Tra Webber MD Unavailable Unavailable Tra Webber MD Unavailable Unavailable Tra Webber MD Unavailable Unavailable Tra Webber MD Unavailable Unavailable Tra Webber MD Unavailable Unavailable Tra Webber MD Unavailable Unavailable Tra Webber MD Unavailable Unavailable Tra Webber MD Unavailable Unavailable Tra Webber MD Unavailable Unavailable Tra Webber MD Unavailable Unavailable Tra Webber MD Unavailable Unavailable Tra Webber MD Unavailable Unavailable Tra Webber MD Unavailable Unavailable Tra Webber MD Unavailable Unavailable Tra Webber MD Unavailable Unavailable Tra Webber MD Unavailable Unavailable Tra Webber MD Unavailable Unavailable Tra Webber MD Unavailable Unavailable Tra Webber MD Unavailable Unavailable Tra Webber MD Unavailable Unavailable Tra Webber MD Unavailable Unavailable Tra Webber MD Unavailable Unavailable Tra Webber MD Unavailable Unavailable Tra Webber MD Unavailable Unavailable Tra Webber MD Unavailable Unavailable Tra Webber MD Unavailable Unavailable Tra Webber MD Unavailable Unavailable Tra Webber MD Unavailable Unavailable Tra Webber MD Unavailable Unavailable Tra Webber MD Unavailable Unavailable Tra Webber MD Unavailable Unavailable Tra Webber MD Unavailable Unavailable Tra Webber MD Unavailable Unavailable Tra Webber MD Unavailable Unavailable Tra Webber MD Unavailable Unavailable Tra Webber MD Unavailable Unavailable Tra Webber MD Unavailable Unavailable Tra Webber MD Unavailable Unavailable Tra Webber MD Unavailable Unavailable WhiteTra MD Unavailable Unavailable White F Sean VANCE Unavailable Unavailable WhiteTra MD Unavailable Unavailable White F Sean VANCE Unavailable Unavailable White F Sean VANCE Unavailable Unavailable White F Sean VANCE Unavailable Unavailable White F Sean VANCE Unavailable Unavailable White F Sean VANCE Unavailable Unavailable White, F Sean VANCE Unavailable Unavailable White, F Sean VANCE Unavailable Unavailable White, F Sean VANCE Unavailable Unavailable White, F Sean MD Unavailable Unavailable White, F Sean MD Unavailable Unavailable Jane HARDINGEW DO Unavailable [phone] Jane HARDING JAMIL DO Unavailable [phone] Jane HARDING JAMIL DO Unavailable [phone] Jane HARDING JAMIL DO Unavailable [phone] Jane HARDING JAMIL DO Unavailable [phone] Jane HARDING JAMIL DO Unavailable [phone] Jane HARDING JAMIL DO Unavailable [phone] Jane HARDING JAMIL DO Unavailable [phone] Jane HARDING JAMIL DO Unavailable [phone] Jane HARDING JAMIL DO Unavailable [phone] Jane HARDING JAMIL DO Unavailable [phone] Jane HARDING JAMIL DO Unavailable [phone] Jane HARDING JAMIL DO Unavailable [phone] Jane HARDING JAMIL DO Unavailable [phone] Jane HARDING JAMIL DO Unavailable [phone] Jane HARDINGEW DO Unavailable [phone] Jane HARDING JAMIL DO Unavailable [phone] Jane HARDING JAMIL DO Unavailable [phone] Jane HARDING JAMIL DO Unavailable [phone] Jane HARDING JAMIL DO Unavailable [phone] Jane HARDINGEW DO [facility] [phone] Re-disclosure Warning The records that you are about to access may contain information from federally-assisted alcohol or drug abuse programs. If such information is present, then the following federally mandated warning applies: This information has been disclosed to you from records protected by federal confidentiality rules (42 CFR part 2). The federal rules prohibit you from making any further disclosure of this information unless further disclosure is expressly permitted by the written consent of the person to whom it pertains or as otherwise permitted by 42 CFR part 2. A general authorization for the release of medical or other information is NOT sufficient for this purpose. The Federal rules restrict any use of the information to criminally investigate or prosecute any alcohol or drug abuse patient.The records that you are about to access may contain highly sensitive health information, the redisclosure of which is protected by Article 27-F of the [facility] Public Health law. If you continue you may have access to information: Regarding HIV / AIDS; Provided by facilities licensed or operated by the [facility] Office of Mental Health; or Provided by the [facility] Office for People With Developmental Disabilities. If such information is present, then the following [facility] mandated warning applies: This information has been disclosed to you from confidential records which are protected by state law. State law prohibits you from making any further disclosure of this information without the specific written consent of the person to whom it pertains, or as otherwise permitted by law. Any unauthorized further disclosure in violation of state law may result in a fine or nursing home sentence or both. A general authorization for the release of medical or other information is NOT sufficient authorization for further disc losure. Family History Family Member Name Family Member Gender Family Member Status Date o f Status Description Data Source(s) Unknown Unknown Problem [facility] ([facility]) Unknown Male Problem [facility] ([facility]) Encounters Encounter Providers Location Date Indications Data Source(s ) Outpatient Attender: Irvin Harding MD Main Office 04/27/2020 10:00:00 AM EST [facility] ([facility]) Office Visit Attender: CONSUELO HASSAN Physical Therapy 2019 07:30:00 AM EST [facility] Outpatient Attender: CONSUELO HASSAN Physical Therapy 01/28/2020 0 8:45:00 AM EDT [facility] ([facility]) Office Visit Attender: CONSUELO HASSAN Physical Therapy 2019 01:15:00 PM EDT [facility] ([facility]) Outpatient Attender: Sean Espino 01/12 11:00:00 AM EDT [facility] ([facility] ) Outpatient<td ID="encounterTypeDescripti onID0">10 Month Follow- Up</td><td>Jamil Harding DO</td><td>Kevin Wooten MD [facility]</td><td>12/24/2019</td><td>7:39AM</td><td>8:45AM</td><td><content ID="encounterDiagnosisID0-0">Dry Eye Syndrome Both Eyes</content>, <content ID="encounterDiagnosisID0-1">Glaucoma Open-angle Primary</content>, <content ID="encounterDiagnosisID0-2">Posterior Capsule Opacification Eccentric Capsule Both Eyes</content>, <content ID="encounterDiagnosisID0-3">Blepharitis Squamous</content></td> Attender: JAMIL Bhakta MD [facility] 12/24/2019 07:39:00 AM EDT - 12/24/2019 08:45:00 AM EDT Blepharitis SquamousGlaucoma Open-angle PrimaryPosterior Capsule Opacification Eccentric Capsule Both EyesDry Eye Syndrome Both Eyes KAYE (Kevin Caicedo MD [facility]) Blepharitis Squamous Glaucoma Open-angle Primary Posterior Capsule Opacification Eccentri c Capsule Both Eyes Dry Eye Syndrome Both Eyes OFFICE OUTPATIENT NEW 30 MINUTES Attender: CONSUELO HASSAN Physic al Therapy 12/08/2019 08:30:00 AM EDT [facility] ([facility]) Outpatient<td ID="encounterTypeDescripti onID1">VISUAL FIELD 24-2</td><td>Jamil Harding DO</td><td>Kevin Wooten MD [facility]</td><td>12/08/2019</td><td>7:13AM</td><td>7:31AM</td><td><content ID="encounterDiagnosisID1-0">Glaucoma Open-angle Primary</content></td> Attender: JAMIL Bhakta MD [facility] 12/08/2019 07:13:00 AM EDT - 12/08/2019 07:31:00 AM EDT Glaucoma Open-angle Primary KAYE (Kevin Caicedo MD [facility]) Glaucoma Open-angle Primary Outpatient<td ID="encounterTypeDescripti onID2">IOP CHECK</td><td>Jamil Harding DO</td><td>Kevin Wooten MD [facility]</td><td>03/05/2019</td><td>7:48AM</td><td>8:22AM</td><td><content ID="encounterDiagnosisID2-0">Glaucoma Open-angle Primary</content></td> Attender: JAMIL Bhakta MD [facility] 03/05/2019 07:48:00 AM EST - 03/05/2019 08:22:00 AM EST Glaucoma Open-angle PrimaryGlaucoma Open -angle Primary KAYE (Kevin Caicedo MD [facility]) Glaucoma Open-angle Primary Glaucoma Open-angle Primary Immunizations Vaccine Date Status Description Data Source(s) Influenza, injectable, MDCK, preservative free, deandra valent 01/13/2020 11:25:00 AM EDT completed [facility] ([facility]) Influenza, injectable, MDCK, preservative free, deandra valent 03/11/2019 08:04:00 AM EST completed [facility] ([facility]) Medications Medication Brand Name Start Date Product Form Dose Route Admi nistrative Instructions Pharmacy Instructions Status Indications Reaction Description Data Source(s) 20 mg 04/20/2020 12:00:00 AM EST tablet 90 TAKE ONE TABLET BY MOUTH EVERY DAY TAKE ONE TABLET BY MOUTH EVERY DAY SOLD: 04/25/2020 [facility] 100 mg 04/20/2020 12:00:00 AM EST tablet 90 TAKE ONE TABLET BY MOUTH EVERY DAY TAKE ONE TABLET BY MOUTH EVERY DAY SOLD: 04/25/2020 [facility] 20 mg 04/13/2020 12:00:00 AM EST capsule,delayed release (DR/EC) 90 TAKE ONE CAPSULE BY MOUTH EVERY DAY TAKE ONE CAPSULE BY MOUTH EVERY DAY SOLD: 04/25/2020 [facility] 3 ML Sodium Hyaluronate 10 MG/ML Prefilled Syringe [Gel-One] Gel-One 02/04/2020 12:00:00 AM EDT active M EDENT ([facility]) 40 mg 01/14/2020 12:00:00 AM EDT tablet 90 TAKE 1 TABLET BY MOUTH NIGHTLY TAKE 1 TABLET BY MOUTH NIGHTLY SOLD: 01/16/2020 [facility] Famotidine 40 MG Oral Tablet FAMOTIDINE 01/14/2020 12:00:00 AM EDT tab let 90 TAKE 1 TABLET BY MOUTH NIGHTLY TAKE 1 TABLET BY MOUTH NIGHTLY SOLD: 04/25/2020 [facility] Xelpros Xelpros 01/13/2020 12:00:00 AM EDT active [facility] ([facility]) Immunization Adminstration,1 Vaccine/Toxoid 01/13/2020 12:00 :00 AM EDT completed [facility] ([facility]) Medication administered onsite Xelpros 0.005% Ophthalmic Emulsion Xelpros 0.005% Ophthalmic Emulsion 12/24/2019 12:00:00 AM EDT 1 active latanoprost 0.05 MG/ML Ophthalmic Suspension [Xelpros] KAYE (Kevin Caicedo MD [facility]) tramadol hydrochloride 50 MG Oral Tablet Tramadol HCL 12/08/2019 12:00:00 AM EDT completed [facility] ([facility]) 50 mg 12/08/2019 12:00:00 AM EDT tablet 18 TAKE ONE TABLET BY MOUTH EVERY 6 HOURS NEEDED FOR PAIN MAXIMUM DAILY DOSE = 4 TAKE ONE TABLET BY MOUTH EVERY 6 HOURS NEEDED FOR PAIN MAXIMUM DAILY DOSE = 4 SOLD: 12/08/2019 [facility] 5-325 mg 12/06/2019 12:00:00 AM EDT tablet 12 TAKE ONE TABLET BY MOUTH EVERY 8 HOURS NEEDED FOR PAIN MAXIMUM DAILY DOSE = 3 TABLETS TAKE ONE TABLET BY MOUTH EVERY 8 HOURS NEEDED FOR PAIN MAXIMUM DAILY DOSE = 3 TABLETS SOLD: 12/06/2019 [facility] 20 mg 07/22/2019 12:00:00 AM EDT tablet 90 TAKE ONE TABLET BY MOUTH EVERY DAY TAKE ONE TABLET BY MOUTH EVERY DAY SOLD: 10/21/2019 [facility] 20 mg 07/22/2019 12:00:00 AM EDT tablet 90 TAKE ONE TABLET BY MOUTH EVERY DAY TAKE ONE TABLET BY MOUTH EVERY DAY SOLD: 01/16/2020 [facility] 20 mg 07/22/2019 12:00:00 AM EDT tablet 90 TAKE ONE TABLET BY MOUTH EVERY DAY TAKE ONE TABLET BY MOUTH EVERY DAY SOLD: 07/23/2019 [facility] 40 mg 07/09/2019 12:00:00 AM EDT tablet 17 TAKE ONE-HALF TABLET BY MOUTH AT BEDTIME TAKE ONE-HALF TABLET BY MOUTH AT BEDTIME SOLD: 09/18/2019 [facility] 40 mg 07/09/2019 12:00:00 AM EDT tablet 45 TAKE ONE-HALF TABLET BY MOUTH AT BEDTIME TAKE ONE-HALF TABLET BY MOUTH AT BEDTIME SOLD: 07/23/2019 [facility] 40 mg 07/09/2019 12:00:00 AM EDT tablet 45 TAKE ONE-HALF TABLET BY MOUTH AT BEDTIME TAKE ONE-HALF TABLET BY MOUTH AT BEDTIME SOLD: 10/21/2019 [facility] Famotidine 20 MG Oral Tablet Famotidine 07/09/2019 12:00:00 AM EDT ORAL completed [facility] ([facility]) Famotidine 40 MG Oral Tablet Famotidine 07/09/2019 12:00:00 AM EDT ORAL active [facility] ([facility]) 20 mg 04/03/2019 12:00:00 AM EST capsule,delayed release (DR/EC) 90 TAKE ONE CAPSULE BY MOUTH EVERY DAY TAKE ONE CAPSULE BY MOUTH EVERY DAY SOLD: 10/21/2019 [facility] 100 mg 04/03/2019 12:00:00 AM EST tablet 90 TAKE ONE TABLET BY MOUTH EVERY DAY TAKE ONE TABLET BY MOUTH EVERY DAY SOLD: 01/16/2020 [facility] 20 mg 04/03/2019 12:00:00 AM EST capsule,delayed release (DR/EC) 90 TAKE ONE CAPSULE BY MOUTH EVERY DAY TAKE ONE CAPSULE BY MOUTH EVERY DAY SOLD: 04/15/2019 [facility] 100 mg 04/03/2019 12:00:00 AM EST tablet 90 TAKE ONE TABLET BY MOUTH EVERY DAY TAKE ONE TABLET BY MOUTH EVERY DAY SOLD: 07/23/2019 [facility] 100 mg 04/03/2019 12:00:00 AM EST tablet 90 TAKE ONE TABLET BY MOUTH EVERY DAY TAKE ONE TABLET BY MOUTH EVERY DAY SOLD: 10/21/2019 [facility] 20 mg 04/03/2019 12:00:00 AM EST capsule,delayed release (DR/EC) 90 TAKE ONE CAPSULE BY MOUTH EVERY DAY TAKE ONE CAPSULE BY MOUTH EVERY DAY SOLD: 07/23/2019 [facility] 100 mg 04/03/2019 12:00:00 AM EST tablet 90 TAKE ONE TABLET BY MOUTH EVERY DAY TAKE ONE TABLET BY MOUTH EVERY DAY SOLD: 04/15/2019 [facility] 20 mg 04/03/2019 12:00:00 AM EST capsule,delayed release (DR/EC) 90 TAKE ONE CAPSULE BY MOUTH EVERY DAY TAKE ONE CAPSULE BY MOUTH EVERY DAY SOLD: 01/16/2020 [facility] Immunization Adminstration,1 Vaccine/Toxoid 03/11/2019 12:00 :00 AM EST completed [facility] ([facility]) Medication administered onsite Xelpros 0.005% Ophthalmic Emulsion Xelpros 0.005% Ophthalmic Emulsion 03/05/2019 12:00:00 AM EST 1 aborted latanoprost 0.05 MG/ML Ophthalmic Suspension [Xelpros] KAYE (Kevin Caicedo MD [facility]) 20 mg 09/12/2018 12:00:00 AM EDT tablet 90 TAKE ONE TABLET BY MOUTH EVERY DAY TAKE ONE TABLET BY MOUTH EVERY DAY SOLD: 04/15/2019 [facility] 150 mg 09/10/2018 12:00:00 AM EDT tablet 90 TAKE ONE TABLET BY MOUTH AT BEDTIME TAKE ONE TABLET BY MOUTH AT BEDTIME SOLD: 04/15/2019 [facility] Insurance Providers Payer name Policy type / Coverage type Policy ID Covered democrat ID Covered democrat's relationship to huff Policy Huff Plan Information BCBS 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 [id number] SP [id number] BC BS [place] FEDERAL B [id number] S [id number] BCBS of [facility] Other 0 Self 0 BCBS of [facility] Other 0 Self 0 BCBS of [facility] Other 0 Self 0 BCBS Federal Plan Commercial [id number] Self [id number] Medicare Natl Govt Servic Medicare Primary [id number] Self [id number] Federal BC/BS Commercial [id number] Self [id number] Medicare Natl Govt Servic Medicare Primary [id number] Self [id number] EXCELLUS BCBS FEDERAL [id number] SP [id number] BS Federal Commercial [id number] Self [id number] BC BS [place] FEDERAL B [id number] S [id number] Medicare Natl Govt Servic Medicare Primary [id number] Self [id number] Federal BC/BS Commercial [id number] Self [id number] MEDICARE [id number] SP [id number] A EXCELLUS BCBS FEDERAL [id number] SP [id number] Medicare Natl Govt Servic Medicare Primary Self Federal BC/BS Commercial [phone] Self [phone] BCBS Federal Plan Commercial Self BS Of [place] Commercial Self [id number] T Problems, Conditions, and Diagnoses Code Display Name Description Problem Type Effective Dates Data Source(s) [id number] Castillo's esophagus Castillo's esophagus Problem 0 04/27/2020 12:00:00 AM EST [facility] ([facility]) Surgeries/Procedures Procedure Description Date Indications Data Source(s) RADEX WRIST 2 VIEWS 02/18/2020 12:00:00 AM EST [facility] ([facility]) ARTHROCENTESIS ASPIR&/INJECTION MAJOR JT/BURSA 12:00:00 AM EDT [facility] ([facility] ARTHROCENTESIS ASPIR&/INJECTION MAJOR JT/BURSA 12:00:00 AM EDT [facility] ([facility] ) X-Ray Hip Unilateral With Pelvis 2-3 Views 01/28/2020 12:00:00 AM EDT [facility] ([facility] RADIOLOGIC EXAM KNEE COMPLETE 4/MORE VIEWS 01/28/2020 12:00:00 AM EDT [facility] ([facility]) RADIOLOGIC EXAM KNEE COMPLETE 4/MORE VIEWS 01/28/2020 12:00:00 AM EDT [facility] ([facility]) RADEX WRIST 2 VIEWS 01/26/2020 12:00:00 AM EDT [facility] ([facility]) RADEX WRIST 2 VIEWS 12/30/2019 12:00:00 AM EDT [facility] ([facility]) Intermediate Eye Exam Established Patient Intermediate Eye Exam Established Patient 12/24/2019 12:00:00 AM EDT KAYE (Archie Caicedo MD [facility]) CLTX DSTL RADIAL FX/EPIPHYSL SEP W/O MANJ 12/08/2019 1 2:00:00 AM EDT [facility] ([facility] ) RADEX WRIST COMPLETE MINIMUM 3 VIEWS 12/08/2019 12:00: 00 AM EDT [facility] ([facility] ) Visual Field (WAIVER OF LIABILITY ON FILE (ABN)) Visua l Field (WAIVER OF LIABILITY ON FILE (ABN)) 12/08/2019 12:00:00 AM EDT KAYE (Kevin Caicedo MD [facility]) Results ID Date Data Source [id number] 01/13/2020 11:56:00 AM EDT [facility] ([facility]) Name Value Range Interpretation Code Description Data Kimberly rce(s) Supporting Document(s) Thyrotropin [Units/volume] in Serum or Plasma by Detec tion limit <= 0.05 mIU/L 1.82 uIU/mL 0.36-3.74 [facility] ([facility] ) ID Date Data Source [id number] 01/13/2020 11:56:00 AM EDT [facility] ([facility]) Name Value Range Interpretation Code Description Data Kimberly rce(s) Supporting Document(s) Cholesterol [Mass/volume] in Serum or Plasma 206 mg/dL 131-200 [facility] ([facility]) Cholesterol in HDL [Mass/volume] in Serum or Plasma 56 mg/dL 35-60 [facility] ([facility]) Cholesterol in LDL [Mass/volume] in Serum or Plasma by calcu lation 119 CALC 50-159 [facility] ([facility]) Triglyceride [Mass/volume] in Serum or Plasma 153 mg/dL 30-150 [facility] ([facility]) ID Date Data Source [id number] 01/13/2020 11:56:00 AM EDT [facility] ([facility]) Name Value Range Interpretation Code Description Data Kimberly rce(s) Supporting Document(s) Urea nitrogen [Mass/volume] in Serum or Plasma 18 mg/dL 7-18 [facility] ([facility]) Glucose [Mass/volume] in Serum or Plasma 93 mg/dL 74-99 [facility] ([facility]) 100-125 mg/dL PRE-DIABETES/FASTING >126 mg/dL DIABETES/FASTING Sodium [Moles/volume] in Serum or Plasma 142 meq/L 136-145 [facility] ([facility]) Creatinine 1.0 mg/dL 0.6-1.3 [facility] Potassium [Moles/volume] in Serum or Plasma 4.2 meq/L 3.5-5.1 [facility] ([facility]) Chloride [Moles/volume] in Serum or Plasma 107 meq/L 98-107 [facility] ([facility]) Carbon dioxide, total [Moles/volume] in Serum or Plasma 27 meq/L 21 -32 [facility] ([facility]) Calcium [Mass/volume] in Serum or Plasma 8.7 mg/dL 8.5-10.1 [facility] ([facility]) Total Bilirubin 0.5 mg/dL 0.2-1.0 [facility] ([facility]) Alkaline phosphatase isoenzyme [Units/volume] in Serum or Pl asma 77 mg/dL 46-116 [facility] ([facility]) Alanine aminotransferase [Enzymatic activity/volume] in Seru m or Plasma 24 U/L 12-78 [facility] ([facility]) Albumin [Mass/volume] in Serum or Plasma 3.9 g/dL 3.4-5.0 [facility] ([facility]) Aspartate aminotransferase [Enzymatic activity/volume] in Serum or Plasma 15 U/L 15-37 [facility] ([facility] ) Proteinase 3 Ab [Units/volume] in Serum 6.9 g/dL 6.4-8.2 [facility] ([facility]) A/G Ratio 1.30 CALC 1.00-1.90 [facility] ([facility]) Glomerular filtration rate/1.73 sq M pre dicted among non-blacks [Volume Rate/Area] in Serum or Plasma by Creatinine-based formula (MDRD) 54 mL/min [facility] ([facility]) Glomerular filtration rate/1.73 sq M pre dicted among blacks [Volume Rate/Area] in Serum or Plasma by Creatinine-based formula (MDRD) Laboratory test result [facility] <content>CHRONIC KIDNEY DISEASE STAGING PER NKF</content>
<content></content>
<content>STAGE I & II GFR >= 60 NORMAL TO MILDLY DECREASED</content>
<content>STAGE III GFR 30-59 MODERATELY DECREASED</content>
<content>STAGE IV GFR 15-29 SEVERELY DECREASED</content>
<content>STAGE V GFR <15 VERY LITTLE GFR LEFT</content>
<content>ESRD GFR <15 ON OIL BURNER</content>
<content></content> ID Date Data Source [id number] 01/13/2020 11:56:00 AM EDT [facility] ([facility]) Name Value Range Interpretation Code Description Data Kimberly rce(s) Supporting Document(s) Magnesium 2.0 mg/dL 1.8-2.4 [facility] ([facility]) ID Date Data Source [id number] 01/13/2020 11:56:00 AM EDT [facility] ([facility]) Name Value Range Interpretation Code Description Data Kimberly rce(s) Supporting Document(s) Leukocytes [#/volume] in Blood by Automated count 7.2 x10*3/UL 4.1-10 .9 [facility] Erythrocytes [#/volume] in Blood by Automated count 4.20 x10*6/UL 4.2 0-6.30 [facility] Hemoglobin [Mass/volume] in Blood 12.7 g/dL 12.0-18.0 [facility] ([facility]) MCV 88.1 fL 80.0-97.0 [facility] ([facility]) Hematocrit [Volume Fraction] of Blood by Automated count 37.0 % 3 7.0-51.0 [facility] ([facility]) MCH 30.3 pg 26.0-32.0 [facility] ([facility]) MCHC 34.4 g/dL 31.0-38.0 [facility] ([facility]) Platelets [#/volume] in Blood by Automated count 344 x10*3/UL 140-440 [facility] ([facility]) Erythrocyte distribution width [Ratio] by Automated count 12.8 % 11.6-13.7 [facility] ([facility]) MPV 8.8 FL 7.8-11.0 [facility] Lymph % 15.4 % 10.0-58.5 [facility] Neut % 78.7 % 37.0-92.0 [facility]) Lymph # 1.1 x10*3/UL 0.6-4.1 [facility] ([facility]) Mid % 5.9 % 1.7-9.3 [facility] Neut # 5.6 x10*3/UL 2.0-7.8 [facility] ([facility]) Mid # 0.5 x10*3/UL 0.1-0.6 [facility] ([facility]) ID Date Data Source [id number] 09/17/2019 03:22:00 PM EDT [facility] ([facility]) Name Value Range Interpretation Code Description Data Kimberly rce(s) Supporting Document(s) Urea nitrogen [Mass/volume] in Serum or Plasma 21 mg/dL 7-18 [facility] ([facility]) Glucose [Mass/volume] in Serum or Plasma 81 mg/dL 74-99 [facility] ([facility]) 100-125 mg/dL PRE-DIABETES/FASTING >126 mg/dL DIABETES/FASTING Potassium [Moles/volume] in Serum or Plasma 3.4 meq/L 3.5-5.1 [facility] ([facility]) Creatinine 1.0 mg/dL 0.6-1.3 [facility] ([facility]) Sodium [Moles/volume] in Serum or Plasma 145 meq/L 136-145 [facility] ([facility]) Chloride [Moles/volume] in Serum or Plasma 108 meq/L 98-107 [facility] ([facility]) Carbon dioxide, total [Moles/volume] in Serum or Plasma 26 meq/L 21 -32 [facility] ([facility]) Calcium [Mass/volume] in Serum or Plasma 8.4 mg/dL 8.5-10.1 [facility] ([facility]) Glomerular filtration rate/1.73 sq M pre dicted among non-blacks [Volume Rate/Area] in Serum or Plasma by Creatinine-based formula (MDRD) 54 mL/min [facility] ([facility]) Glomerular filtration rate/1.73 sq M pre dicted among blacks [Volume Rate/Area] in Serum or Plasma by Creatinine-based formula (MDRD) Laboratory test result [facility] ([facility]) <content>CHRONIC KIDNEY DISEASE STAGING PER NKF</content>
<content></content>
<content>STAGE I & II GFR >= 60 NORMAL TO MILDLY DECREASED</content>
<content>STAGE III GFR 30-59 MODERATELY DECREASED</content>
<content>STAGE IV GFR 15-29 SEVERELY DECREASED</content>
<content>STAGE V GFR <15 VERY LITTLE GFR LEFT</content>
<content>ESRD GFR <15 ON OIL BURNER</content>
<content></content> ID Date Data Source [id number] 09/11/2019 10:51:00 AM EDT [facility] ([facility]) Name Value Range Interpretation Code Description Data Kimberly rce(s) Supporting Document(s) Calcidiol [Mass/volume] in Serum or Plasma 74.2 24.0-80.0 [facility] ([facility]) This test was performed using [employer] I P Vitamin D immunoassay kit. Values obtained with different assay methods should not be used interchangeably. ID Date Data Source [id number] 09/11/2019 10:49:00 AM EDT [facility] ([facility]) Name Value Range Interpretation Code Description Data Kimberly rce(s) Supporting Document(s) Thyrotropin [Units/volume] in Serum or Plasma by Detec tion limit <= 0.05 mIU/L 2.11 uIU/mL 0.36-3.74 [facility] ([facility] ) ID Date Data Source [id number] 09/11/2019 10:49:00 AM EDT [facility] ([facility]) Name Value Range Interpretation Code Description Data Kimberly rce(s) Supporting Document(s) Cholesterol in LDL [Mass/volume] in Serum or Plasma by calcu lation 135 CALC 50-159 [facility] ([facility]) Cholesterol [Mass/volume] in Serum or Plasma 237 mg/dL 131-200 [facility] ([facility]) Triglyceride [Mass/volume] in Serum or Plasma 167 mg/dL 30-150 [facility] ([facility]) Cholesterol in HDL [Mass/volume] in Serum or Plasma 69 mg/dL 35-60 [facility] ([facility]) ID Date Data Source [id number] 09/11/2019 10:49:00 AM EDT [facility] ([facility]) Name Value Range Interpretation Code Description Data Kimberly rce(s) Supporting Document(s) Creatinine 1.5 mg/dL 0.6-1.3 [facility]) Urea nitrogen [Mass/volume] in Serum or Plasma 29 mg/dL 7-18 [facility] ([facility]) Glucose [Mass/volume] in Serum or Plasma 96 mg/dL 74-99 [facility] ([facility]) 100-125 mg/dL PRE-DIABETES/FASTING >126 mg/dL DIABETES/FASTING Potassium [Moles/volume] in Serum or Plasma 4.4 meq/L 3.5-5.1 [facility] ([facility]) Sodium [Moles/volume] in Serum or Plasma 141 meq/L 136-145 [facility] ([facility]) Chloride [Moles/volume] in Serum or Plasma 102 meq/L 98-107 [facility] ([facility]) Alkaline phosphatase isoenzyme [Units/volume] in Serum or Pl asma 95 mg/dL 46-116 [facility] ([facility]) Total Bilirubin 0.8 mg/dL 0.2-1.0 [facility] ([facility]) Carbon dioxide, total [Moles/volume] in Serum or Plasma 29 meq/L 21 -32 [facility] ([facility]) Calcium [Mass/volume] in Serum or Plasma 9.8 mg/dL 8.5-10.1 [facility] ([facility]) Albumin [Mass/volume] in Serum or Plasma 4.1 g/dL 3.4-5.0 [facility] ([facility]) Aspartate aminotransferase [Enzymatic activity/volume] in Serum or Plasma 18 U/L 15-37 [facility] ([facility] ) Alanine aminotransferase [Enzymatic activity/volume] in Seru m or Plasma 29 U/L 12-78 [facility] ([facility]) Proteinase 3 Ab [Units/volume] in Serum 7.3 g/dL 6.4-8.2 [facility] ([facility]) A/G Ratio 1.28 CALC 1.00-1.90 [facility] Glomerular filtration rate/1.73 sq M pre dicted among non-blacks [Volume Rate/Area] in Serum or Plasma by Creatinine-based formula (MDRD) 34 mL/min [facility] ([facility]) Glomerular filtration rate/1.73 sq M pre dicted among blacks [Volume Rate/Area] in Serum or Plasma by Creatinine-based formula (MDRD) 41 mL/min [facility] ([facility]) <content>CHRONIC KIDNEY DISEASE STAGING PER NKF</content>
<content></content>
<content>STAGE I & II GFR >= 60 NORMAL TO MILDLY DECREASED</content>
<content>STAGE III GFR 30-59 MODERATELY DECREASED</content>
<content>STAGE IV GFR 15-29 SEVERELY DECREASED</content>
<content>STAGE V GFR <15 VERY LITTLE GFR LEFT</content>
<content>ESRD GFR <15 ON OIL BURNER</content>
<content></content> Procedure Vital Signs ID Date Data Source UNK Name Value Range Interpretation Code Description Data Source(s) Body temperature 65.4 [degF] 65.4 [degF] [facility] ([facility]) Body weight 62.597 kg 62.597 kg [facility] Body mass index (BMI) [Ratio] 23.7 kg/m2 23.7 k g/m2 [facility] ([facility]) Heart rate 66 /min 66 /min [facility] Diastolic blood pressure 81 mm[Hg] 81 mm[Hg] [facility] ([facility]) Systolic blood pressure 127 mm[Hg] 127 mm[Hg] [facility] ([facility]) Body weight 138.00 [lb_av] 138.00 [lb_av] [facility] ([facility]) Body height 64 [in_i] 64 [in_i] [facility] 5'4" Body temperature 96.8 [degF] 96.8 [degF] [facility] ([facility] ) Body mass index (BMI) [Ratio] 24.8 kg/m2 24.8 k g/m2 [facility] ([facility] ) Body weight 140.00 [lb_av] 140.00 [lb_av] [facility] ([facility] ) Body height 63 [in_i] 63 [in_i] [facility] ([facility] ) 5'3" Body temperature 97.3 [degF] 97.3 [degF] [facility] ([facility] ) Body mass index (BMI) [Ratio] 24.6 kg/m2 24.6 k g/m2 [facility] ([facility]) Body weight 139.00 [lb_av] 139.00 [lb_av] [facility] ([facility]) Body height 63 [in_i] 63 [in_i] [facility] ([facility]) 5'3" Heart rate 78 /min 78 /min [facility] ([facility]) Diastolic blood pressure 90 mm[Hg] 90 mm[Hg] [facility] ([facility]) Systolic blood pressure 160 mm[Hg] 160 mm[Hg] [facility] ([facility]) Body mass index (BMI) [Ratio] 24.9 kg/m2 24.9 k g/m2 [facility] ([facility] ) Body weight 145.00 [lb_av] 145.00 [lb_av] [facility] ([facility] ) Body height 64 [in_i] 64 [in_i] [facility] ([facility] ) 5'4" Body temperature 97.0 [degF] 97.0 [degF] [facility] ([facility] ) Body mass index (BMI) [Ratio] 25.0 kg/m2 25.0 k g/m2 [facility] ([facility]) Body weight 141.25 [lb_av] 141.25 [lb_av] [facility] ([facility]) Body height 63 [in_i] 63 [in_i] [facility] ([facility]) 5'3" Heart rate 68 /min 68 /min [facility] ([facility]) Diastolic blood pressure 78 mm[Hg] 78 mm[Hg] [facility] ([facility]) Systolic blood pressure 128 mm[Hg] 128 mm[Hg] [facility] ([facility]) Systolic blood pressure 130 mm[Hg] 130 mm[Hg] M [facility] ([facility]) Diastolic blood pressure 72 mm[Hg] 72 mm[Hg] [facility] ([facility]) Heart rate 66 /min 66 /min [facility] ([facility]) Body height 63 [in_i] 63 [in_i] [facility] ([facility]) 5'3" Body weight 148.00 [lb_av] 148.00 [facility]lb_av[facility] Body mass index (BMI) [Ratio] 26.2 kg/m2 26.2 k g/m2 [facility] ([facility]) Patient Treatment Plan of Care Planned Activity Planned Date Details Description Data Source (s) Xelpros 0.005% Ophthalmic Emulsion 12/24/2019 12:00:00 AM [facility] (Kevin Caicedo MD [facility]) Xelpros 0.005% Ophthalmic Emulsion 03/05/2019 12:00:00 AM [facility] (Kevin Caicedo MD [facility])
--- OUTSIDE RECORDS SUMMARY | 2020-05-04 07:17 | CCD | Continuity of Care Document ---
Author Author Chandni CAMEJO PA Organization Unknown Address [address] [place] [address], [address] [address] Phone [phone] Care Team Providers Care Tank Riveter Name Role Phone Abhinav Bonilla MD [facility] [phone] Caridad Olivera MD [facility] [phone] Sean Webber MD [facility] [phone] Problems Active Problems Provider Date Spinal stenosis [...] Available Procedures Date Code Description Status 02/04/2020 19354 Inject/Drain Joint/Bursa Major C ompleted 01/28/2020 12303 X-Ray Knee Complete W/Obliques & Tunnel And/Or Standing Views Completed 01/28/2020 92746 X-Ray Knee Complete W/Obliques & Tunnel And/Or Standing Views Completed 01/28/2020 96603 X-Ray Hip Unilateral With Pelvis 2-3 Views Completed 01/26/2020 63120 X-Ray Wrist Ap & Lateral 2 Views Completed 12/30/2019 03772 X-Ray Wrist Ap & Lateral 2 Views Completed 12/08/2019 43483 X-Ray Wrist Complete Completed 12/08/2019 01340 FX Distal Radius W/O Manipulatio n Completed Medical Devices Description No Information Available Encounters Type Date Location Provider Dx Diagnosis Office Visit 01/28/2020 8:45a [place] [facility] M17.0 Bilateral primary osteoarthritis of knee 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, left hip Office Visit 01/26/2020 1:15p [place] [facility] S52.571D Oth intartic fx low end r rad, subs for clos fx w routn heal Office Visit 12/08/2019 8:30a [place] [facility] S52.571A Oth intartic fracture of [...] 02/25/2020 11:30 am - [place] [facility] at [place] * 02/18/2020 8:30 am - [place] [facility] [place] 01/28/2020 - [place] [facility]* M17.0 Bilateral primary osteoarthritis of knee * New Orders:* Gel-one Bilateral Knee Injection, Ordered: 01/28/20 * Follow up:* 4 weeks with IID for lt knee recheck * M16.12 Unilateral primary osteoarthritis, left hip Functional Status Description No Information Available Mental Status Description No Information Available Referrals Refer to Reason for Referral Status Appt Date Terence Camejo Pac GEL-ONE INJECTION 22770, J73 26 NO AUTH REQD BASE ON MED [facility], BUY AND BILL, REF#[id number] MOHIT KIMBALL, SENT TO [facility]LD Created [address] [address] [phone] Terence Camejo Pac L [address] [place] [employer]ace - Right No authorization required. Patient responsible for 15% Created [address] [address] [phone]
--- NOTE | 2020-05-04 07:55 | REPVR ---
PROCEDURE INFORMATION: Exam: CT Cervical Spine Without Contrast Exam date and time: 05/04/2020 7:37 AM Age: 74 years old Clinical indication: Neck pain; Additional info: Fall TECHNIQUE: Imaging protocol: Computed tomography images of the cervical spine without contrast. Radiation optimization: All CT scans at this facility use at least one of these dose optimization techniques: automated exposure control; mA and/or kV adjustment per patient size (includes targeted exams where dose is matched to clinical indication); or iterative reconstruction. COMPARISON: No relevant prior studies available. FINDINGS: Bones/joints: No acute fracture. Normal alignment. Discs/Spinal canal/Neural foramina: There is severe intervertebral disc space loss at C5/6 and C6/7. There are coarse ventral bridging osteophytes. There is multilevel facet hypertrophy. At C5/6, changes contribute to severe right neural foraminal narrowing. Lungs: Lung apices are normal. Soft tissues: There is a 10 mm right thyroid lobe hypodensity. IMPRESSION: No acute fracture. Electronically signed by: Laila Velazquez On 05/04/2020 07:54:53 AM
--- NOTE | 2020-05-04 08:03 | REPVR ---
PROCEDURE INFORMATION: Exam: CT Head Without Contrast Exam date and time: 05/04/2020 7:37 AM Age: 74 years old Clinical indication: Pain; Headache; Additional info: Fall TECHNIQUE: Imaging protocol: Computed tomography of the head without contrast. Radiation optimization: All CT scans at this facility use at least one of these dose optimization techniques: automated exposure control; mA and/or kV adjustment per patient size (includes targeted exams where dose is matched to clinical indication); or iterative reconstruction. COMPARISON: No relevant prior studies available. FINDINGS: Brain: There is no acute intracranial hemorrhage or mass effect. Mild diffuse volume loss is within the range of normal for patient age. There are small vessel ischemic changes within the periventricular and subcortical white matter, but the normal dominguez/white matter delineation is preserved. Chronic infarcts involve the basal ganglia. Cerebral ventricles: No ventriculomegaly. Bones/joints: Unremarkable. No acute fracture. Paranasal sinuses: Visualized sinuses are unremarkable. No fluid levels. Mastoid air cells: Visualized mastoid air cells are well aerated. Soft tissues: Unremarkable. IMPRESSION: No acute intracranial hemorrhage or edema. Electronically signed by: Laila Velazquez On 05/04/2020 08:02:44 AM
--- NOTE | 2020-05-04 08:04 | REP ---
INDICATION: fall. COMPARISON: None. TECHNIQUE: AP view of the pelvis with neutral and frog-lateral views of the right and left hip. FINDINGS: Right hip replacement. Age-related osteopenia and degenerative changes throughout the pelvis and hips noted along with possible old left inferior pubic ramus fracture. No acute fracture or dislocation. IMPRESSION: No obvious acute fracture or dislocation. <Electronically signed by Paras Pitts > 05/04/20 0800
--- NOTE | 2020-05-04 08:05 | REP ---
INDICATION: fall COMPARISON: 12/05/2019 TECHNIQUE: Portable AP view of the chest FINDINGS: The mediastinum and cardiac silhouette are stable and within normal limits for portable technique. The lung kc demonstrate chronic appearing changes without acute consolidation, effusion, or pneumothorax. Skeletal structures are intact. IMPRESSION: No acute cardiopulmonary process appreciated. <Electronically signed by Paras Pitts > 05/04/20 0801
--- OUTSIDE RECORDS SUMMARY | 2020-05-04 08:16 | CCD ---
Author Author [facility] Organization [facility] Address Unknown Phone Unavailable Care Team Providers Care Blogs Manager Name Role Phone Altagracia Harding MD Unavailable [...] Unavailable Unavailable Altagracia Harding MD Unavailable Unavailable Alatgracia Harding MD Unavailable Unavailable Altagracia Harding MD Unavailable Unavailable Altagracia Harding MD Unavailable Unavailable Altagracia Harding MD Unavailable Unavailable Altagracia Harding MD Unavailable Unavailable Altagracia Harding MD Unavailable Unavailable Altagrcaia Harding MD Unavailable Unavailable Altagracia Harding MD [...] Unavailable Akbar F Sean VANCE Unavailable Unavailable White F Sean VANCE Unavailable Unavailable Akbar F Sean VANCE Unavailable Unavailable Akbar F Sean VANCE Unavailable Unavailable Akbar F Sean VANCE Unavailable Unavailable Akbar F Sean VANCE Unavailable Unavailable Akbar F Sean VANCE Unavailable Unavailable Akbar F Sean VANCE Unavailable Unavailable White F Sean VANCE Unavailable Unavailable White F Sena VANCE Unavailable Unavailable Akbar F Sean VANCE [...] Unavailable Akbar F Sean VANCE Unavailable Unavailable WhiteTra MD Unavailable Unavailable WhiteTra MD Unavailable Unavailable WhiteTra MD Unavailable Unavailable White, F Sean VANCE Unavailable [...] HARDING JAMIL DO Unavailable [phone] Jane HARIDNG JAMIL DO Unavailable [phone] Jane HARDING JAMIL DO Unavailable [phone] Jane HARDING JAMIL DO Unavailable [phone] Re-disclosure Warning The records that you [...] is protected by Article 27-F of the [facility] Public Health law. If you continue you may have access to information: Regarding HIV / AIDS; Provided by facilities licensed or operated by the [facility] Office of Mental Health; or Provided by the [facility] Office for People With Developmental Disabilities. If such information is present, then the following [facility] mandated warning applies: This information has been [...] law may result in a fine or fdc sentence or both. A general authorization for [...] Physical Therapy 2019 07:30:00 AM EST [facility] Out[facility] Attender: CONSUELO HASSAN Physical Therapy 01/28/2020 0 8:45:00 AM EDT [facility] ([facility]) Office Visit Attender: COSNUELO HASSAN Physical Therapy 2019 01:15:00 PM EDT [facility] ([facility]) Outpatient Attender: Sean Espino 01/12 11:00:00 AM EDT [facility] ([facility] ) Outpatient<td ID="encounterTypeDescripti onID0">10 Month Follow- Up</td><td>Jamil Harding DO</td><td>Kevin Wooten MD [facility]</td><td>12/24/2019</td><td>7:39AM</td><td>8:45AM</td><td><content ID="encounterDiagnosisID0-0">Dry Eye Syndrome Both Eyes</content>, <content ID="encounterDiagnosisID0-1">Glaucoma Open-angle Primary</content>, <content ID="encounterDiagnosisID0-2">Posterior Capsule Opacification Eccentric Capsule Both Eyes</content>, <content ID="encounterDiagnosisID0-3">Blepharitis Squamous</content></td> Attender: JAMIL Bhakta MD [facility] 12/24/2019 07:39:00 AM EDT - 12/24/2019 08:45:00 AM EDT Blepharitis SquamousGlaucoma Open-angle PrimaryPosterior Capsule Opacification Eccentric Capsule Both EyesDry Eye Syndrome Both Eyes KAYE (Kevin Caicedo MD [facility]) Blepharitis Squamous Glaucoma Open-angle Primary Posterior Capsule Opacification Eccentri c Capsule Both Eyes Dry Eye Syndrome Both Eyes OFFICE OUTPATIENT NEW 30 MINUTES Attender: CONSUELO HASSAN Physic al Therapy 12/08/2019 08:30:00 AM EDT [facility] ([facility]) Outpatient<td ID="encounterTypeDescripti onID1">VISUAL FIELD 24-2</td><td>Jamil Harding DO</td><td>Kevin Wooten MD [facility]</td><td>12/08/2019</td><td>7:13AM</td><td>7:31AM</td><td><content ID="encounterDiagnosisID1-0">Glaucoma Open-angle Primary</content></td> Attender: JAMIL Bhakta MD [facility] 12/08/2019 07:13:00 AM EDT - 12/08/2019 07:31:00 AM EDT Glaucoma Open-angle Primary KAYE (Kevin Caicedo MD [facility]) Glaucoma Open-angle Primary Outpatient<td ID="encounterTypeDescripti onID2">IOP CHECK</td><td>Jamil Harding DO</td><td>Kevin Wooten MD [facility]</td><td>03/05/2019</td><td>7:48AM</td><td>8:22AM</td><td><content ID="encounterDiagnosisID2-0">Glaucoma Open-angle Primary</content></td> Attender: JAMIL Bhakta MD [facility] 03/05/2019 07:48:00 AM EST - 03/05/2019 08:22:00 AM EST Glaucoma Open-angle PrimaryGlaucoma Open -angle Primary KAYE (Kevin Caicedo MD [facility]) Glaucoma Open-angle Primary Glaucoma Open-angle Primary Immunizations Vaccine Date Status Description Data Source(s) Influenza, injectable, MDCK, preservative free, deandra valent 01/13/2020 11:25:00 AM EDT completed [facility]) Influenza, injectable, MDCK, preservative free, deandra valent 03/11/2019 08:04:00 AM EST completed [facility]) Medications Medication Brand Name Start [...] 02/04/2020 12:00:00 AM EDT active M [facility]ENT ([facility]) 40 mg 01/14/2020 12:00:00 [...] Xelpros 01/13/2020 12:00:00 AM EDT active [facility] ([facility]) Immunization Adminstration,1 Vaccine/Toxoid 01/13/2020 12:00 :00 AM EDT completed [facility] ([facility]) Medication administered onsite Xelpros 0.005% Ophthalmic Emulsion Xelpros 0.005% Ophthalmic Emulsion 12/24/2019 12:00:00 AM EDT 1 active latanoprost 0.05 MG/ML Ophthalmic Suspension [Xelpros] KAYE (Kevin Caicedo MD [facility]) tramadol hydrochloride 50 MG Oral Tablet Tramadol HCL 12/08/2019 12:00:00 AM EDT completed [facility] ([facility]) 50 mg 12/08/2019 12:00:00 [...] CAPSULE BY MOUTH EVERY DAY SOLD: 01/16/2020 [facility] Immunization Adminstration,1 Vaccine/Toxoid 03/11/2019 12:00 :00 AM EST completed [facility] ([facility]) Medication administered onsite Xelpros 0.005% Ophthalmic Emulsion Xelpros 0.005% Ophthalmic Emulsion 03/05/2019 12:00:00 AM EST 1 aborted latanoprost 0.05 MG/ML Ophthalmic Suspension [Xelpros] KAYE (Kevin Caicedo MD [facility]) 20 mg 09/12/2018 12:00:00 AM EDT tablet [...] type / Coverage type Policy ID Covered libertarian ID Covered libertarian's relationship to huff Policy Huff Plan Information BCBS 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 [id number] SP [id number] [facility] B [id number] S [id number] BCBS of [facility] Other 0 Self 0 BCBS of [facility] Other 0 Self 0 BCBS of [facility] Other 0 Self 0 BCBS Federal Plan Commercial [id number] Self [id number] Medicare Natl Govt Servic Medicare Primary [id number] Self [id number] [facility] BC/BS Commercial [id number] Self [id number] Medicare Natl Govt Servic Medicare Primary [id number] Self [id number] EXCELLUS BCBS FEDERAL [id number] SP [id number] BS Federal Commercial [id number] Self [id number] BC BS [place] FEDERAL B [id number] S [id number] Medicare Natl Govt Servic Medicare Primary [id number] Self [id number] Federal BC/BS Commercial [id number] Self [id number] MEDICARE [id number] SP [id number] A EXCELLUS BCBS FEDERAL [id number] SP [id number] Medicare Natl Govt Servic Medicare Primary Self Federal BC/BS Commercial [phone] Self [phone] BCBS Federal Plan Commercial Self BS Of [place] Commercial Self [id number] T Problems, Conditions, and Diagnoses Code Display Name Description Problem Type Effective Dates Data Source(s) [id number] Castillo's esophagus Castillo's esophagus Problem 0 04/27/2020 12:00:00 AM EST [facility] ([facility]) Surgeries/Procedures Procedure Description Date Indications Data Source(s) RADEX WRIST 2 VIEWS 02/18/2020 12:00:00 AM EST [facility] ([facility]) ARTHROCENTESIS ASPIR&/INJECTION MAJOR JT/BURSA 12:00:00 AM EDT [facility] ([facility]) ARTHROCENTESIS ASPIR&/INJECTION MAJOR JT/BURSA 020 12:00:00 AM EDT [facility] ([facility]) X-Ray Hip Unilateral With Pelvis 2-3 Views 01/28/2020 12:00:00 AM EDT [facility] ([facility]) RADIOLOGIC EXAM KNEE COMPLETE 4/MORE VIEWS 01/28/2020 12:00:00 AM EDT [facility] ([facility]) RADIOLOGIC EXAM KNEE COMPLETE 4/MORE VIEWS 01/28/2020 12:00:00 AM EDT [facility] ([facility]) RADEX WRIST 2 VIEWS 01/26/2020 12:00:00 AM EDT [facility] ([facility]) RADEX WRIST 2 VIEWS 12/30/2019 12:00:00 AM EDT [facility] ([facility]) Intermediate Eye Exam Established Patient Intermediate Eye Exam Established Patient 12/24/2019 12:00:00 AM EDT KAYE (Archie Caicedo MD [facility]) CLTX DSTL RADIAL FX/EPIPHYSL SEP W/O MANJ 12/08/2019 1 2:00:00 AM EDT [facility] ([facility] RADEX WRIST COMPLETE MINIMUM 3 VIEWS 12/08/2019 12:00: 00 AM EDT [facility] ([facility] ) Visual Field (WAIVER OF LIABILITY ON FILE (ABN)) Visua l Field (WAIVER OF LIABILITY ON FILE (ABN)) 12/08/2019 12:00:00 AM EDT KAYE (Kevin Caicedo MD [facility]) Results ID Date Data Source [id number] 01/13/2020 11:56:00 AM EDT [facility] ([facility]) Name Value Range Interpretation Code Description Data Kimberly rce(s) Supporting Document(s) Thyrotropin [Units/volume] in Serum or Plasma by Detec tion limit <= 0.05 mIU/L 1.82 uIU/mL 0.36-3.74 [facility] ([facility] ) ID Date Data Source [id number] 01/13/2020 11:56:00 AM EDT [facility] ([facility]) Name Value Range Interpretation Code Description Data Kimberly rce(s) Supporting Document(s) Cholesterol [Mass/volume] in Serum or Plasma 206 mg/dL 131-200 [facility] ([facility]) Cholesterol in HDL [Mass/volume] in Serum or Plasma 56 mg/dL 35-60 [facility] ([facility]) Cholesterol in LDL [Mass/volume] in Serum or Plasma by calcu lation 119 CALC 50-159 [facility] ([facility]) Triglyceride [Mass/volume] in Serum or Plasma 153 mg/dL 30-150 [facility] ([facility]) ID Date Data Source [id number] 01/13/2020 11:56:00 AM EDT [facility] ([facility]) Name Value Range Interpretation Code Description Data Kimberly rce(s) Supporting Document(s) Urea nitrogen [Mass/volume] in Serum or Plasma 18 mg/dL 7-18 [facility] ([facility]) Glucose [Mass/volume] in Serum or Plasma 93 mg/dL 74-99 [facility] ([facility]) 100-125 mg/dL PRE-DIABETES/FASTING >126 mg/dL DIABETES/FASTING Sodium [Moles/volume] in Serum or Plasma 142 meq/L 136-145 [facility] ([facility]) Creatinine 1.0 mg/dL 0.6-1.3 [facility] ([facility] Potassium [Moles/volume] in Serum or Plasma 4.2 meq/L 3.5-5.1 [facility] ([facility]) Chloride [Moles/volume] in Serum or Plasma 107 meq/L 98-107 [facility] ([facility]) Carbon dioxide, total [Moles/volume] in Serum or Plasma 27 meq/L 21 -32 [facility] ([facility]) Calcium [Mass/volume] in Serum or Plasma 8.7 mg/dL 8.5-10.1 [facility] ([facility]) Total Bilirubin 0.5 mg/dL 0.2-1.0 [facility] ([facility]) Alkaline phosphatase isoenzyme [Units/volume] in Serum or Pl asma 77 mg/dL 46-116 [facility] ([facility]) Alanine aminotransferase [Enzymatic activity/volume] in Seru m or Plasma 24 U/L 12-78 [facility] ([facility]) Albumin [Mass/volume] in Serum or Plasma 3.9 g/dL 3.4-5.0 [facility] ([facility]) Aspartate aminotransferase [Enzymatic activity/volume] in Serum or Plasma 15 U/L 15-37 [facility] ([facility] ) Proteinase 3 Ab [Units/volume] in Serum 6.9 g/dL 6.4-8.2 [facility] ([facility]) A/G Ratio 1.30 CALC 1.00-1.90 [facility]) Glomerular filtration rate/1.73 sq M pre dicted among non-blacks [Volume Rate/Area] in Serum or Plasma by Creatinine-based formula (MDRD) 54 mL/min [facility] Glomerular filtration rate/1.73 sq M pre dicted among blacks [Volume Rate/Area] in Serum or Plasma by Creatinine-based formula (MDRD) [facility] <content>CHRONIC KIDNEY DISEASE STAGING PER NKF</content>
<content></content>
<content>STAGE I & II GFR >= 60 NORMAL TO MILDLY DECREASED</content>
<content>STAGE III GFR 30-59 MODERATELY DECREASED</content>
<content>STAGE IV GFR 15-29 SEVERELY DECREASED</content>
<content>STAGE V GFR <15 VERY LITTLE GFR LEFT</content>
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
<content></content> ID Date Data Source [id number] 01/13/2020 11:56:00 AM EDT [facility] ([facility]) Name Value Range Interpretation Code Description Data Kimberly rce(s) Supporting Document(s) Magnesium 2.0 mg/dL 1.8-2.4 [facility] ID Date Data Source [id number] 01/13/2020 11:56:00 AM EDT [facility] ([facility]) Name Value Range Interpretation Code Description Data Kimberly rce(s) Supporting Document(s) Leukocytes [#/volume] in Blood by Automated count 7.2 x10*3/UL 4.1-10 .9 [facility] ([facility]) Erythrocytes [#/volume] in Blood by Automated count 4.20 x10*6/UL 4.2 0-6.30 [facility] Hemoglobin [Mass/volume] in Blood 12.7 g/dL 12.0-18.0 [facility] ([facility]) MCV 88.1 fL 80.0-97.0 [facility] ([facility]) Hematocrit [Volume Fraction] of Blood by Automated count 37.0 % 3 7.0-51.0 [facility] ([facility]) MCH 30.3 pg 26.0-32.0 [facility]) MCHC 34.4 g/dL 31.0-38.0 [facility] ([facility]) Platelets [#/volume] in Blood by Automated count 344 x10*3/UL 140-440 [facility] ([facility]) Erythrocyte distribution width [Ratio] by Automated count 12.8 % 11.6-13.7 [facility] ([facility]) MPV 8.8 FL 7.8-11.0 [facility]) Lymph % 15.4 % 10.0-58.5 [facility] Neut % 78.7 % 37.0-92.0 [facility]) Lymph # 1.1 x10*3/UL 0.6-4.1 [facility] ([facility]) Mid % 5.9 % 1.7-9.3 [facility]) Neut # 5.6 x10*3/UL 2.0-7.8 [facility] ([facility]) Mid # 0.5 x10*3/UL 0.1-0.6 [facility] ([facility]) ID Date Data Source [id number] 09/17/2019 03:22:00 PM EDT [facility] ([facility]) Name Value Range Interpretation Code Description Data Kimberly rce(s) Supporting Document(s) Urea nitrogen [Mass/volume] in Serum or Plasma 21 mg/dL 7-18 [facility] ([facility]) Glucose [Mass/volume] in Serum or Plasma 81 mg/dL 74-99 [facility] ([facility]) 100-125 mg/dL PRE-DIABETES/FASTING >126 mg/dL DIABETES/FASTING Potassium [Moles/volume] in Serum or Plasma 3.4 meq/L 3.5-5.1 [facility] ([facility]) Creatinine 1.0 mg/dL 0.6-1.3 [facility] ([facility]) Sodium [Moles/volume] in Serum or Plasma 145 meq/L 136-145 [facility] ([facility]) Chloride [Moles/volume] in Serum or Plasma 108 meq/L 98-107 [facility] ([facility]) Carbon dioxide, total [Moles/volume] in Serum or Plasma 26 meq/L 21 -32 [facility] ([facility]) Calcium [Mass/volume] in Serum or Plasma 8.4 mg/dL 8.5-10.1 [facility] ([facility]) Glomerular filtration rate/1.73 sq M pre dicted among non-blacks [Volume Rate/Area] in Serum or Plasma by Creatinine-based formula (MDRD) 54 mL/min [facility] ([facility]) Glomerular filtration rate/1.73 sq M pre dicted among blacks [Volume Rate/Area] in Serum or Plasma by Creatinine-based formula (MDRD) Laboratory test result [facility] ([facility]) <content>CHRONIC KIDNEY DISEASE STAGING PER NKF</content>
<content></content>
<content>STAGE I & II GFR >= 60 NORMAL TO MILDLY DECREASED</content>
<content>STAGE III GFR 30-59 MODERATELY DECREASED</content>
<content>STAGE IV GFR 15-29 SEVERELY DECREASED</content>
<content>STAGE V GFR <15 VERY LITTLE GFR LEFT</content>
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
<content></content> ID Date Data Source [id number] 09/11/2019 10:51:00 AM EDT [facility] ([facility]) Name Value Range Interpretation Code Description Data Kimberly rce(s) Supporting Document(s) Calcidiol [Mass/volume] in Serum or Plasma 74.2 24.0-80.0 [facility] ([facility]) This test was performed using [employer] I P Vitamin D immunoassay kit. Values obtained with different assay methods should not be used interchangeably. ID Date Data Source [id number] 09/11/2019 10:49:00 AM EDT [facility] ([facility]) Name Value Range Interpretation Code Description Data Kimberly rce(s) Supporting Document(s) Thyrotropin [Units/volume] in Serum or Plasma by Detec tion limit <= 0.05 mIU/L 2.11 uIU/mL 0.36-3.74 [facility] ([facility] ) ID Date Data Source [id number] 09/11/2019 10:49:00 AM EDT [facility] ([facility]) Name Value Range Interpretation Code Description Data Kimberly rce(s) Supporting Document(s) Cholesterol in LDL [Mass/volume] in Serum or Plasma by calcu lation 135 CALC 50-159 [facility] ([facility]) Cholesterol [Mass/volume] in Serum or Plasma 237 mg/dL 131-200 [facility] ([facility]) Triglyceride [Mass/volume] in Serum or Plasma 167 mg/dL 30-150 [facility] ([facility]) Cholesterol in HDL [Mass/volume] in Serum or Plasma 69 mg/dL 35-60 [facility] ([facility]) ID Date Data Source [id number] 09/11/2019 10:49:00 AM EDT [facility] ([facility]) Name Value Range Interpretation Code Description Data Kimberly rce(s) Supporting Document(s) Creatinine 1.5 mg/dL 0.6-1.3 [facility] Urea nitrogen [Mass/volume] in Serum or Plasma 29 mg/dL 7-18 [facility] ([facility]) Glucose [Mass/volume] in Serum or Plasma 96 mg/dL 74-99 [facility] ([facility]) 100-125 mg/dL PRE-DIABETES/FASTING >126 mg/dL DIABETES/FASTING Potassium [Moles/volume] in Serum or Plasma 4.4 meq/L 3.5-5.1 [facility] ([facility]) Sodium [Moles/volume] in Serum or Plasma 141 meq/L 136-145 [facility] ([facility]) Chloride [Moles/volume] in Serum or Plasma 102 meq/L 98-107 [facility] ([facility]) Alkaline phosphatase isoenzyme [Units/volume] in Serum or Pl asma 95 mg/dL 46-116 [facility] ([facility]) Total Bilirubin 0.8 mg/dL 0.2-1.0 [facility] ([facility]) Carbon dioxide, total [Moles/volume] in Serum or Plasma 29 meq/L 21 -32 [facility] ([facility]) Calcium [Mass/volume] in Serum or Plasma 9.8 mg/dL 8.5-10.1 [facility] ([facility]) Albumin [Mass/volume] in Serum or Plasma 4.1 g/dL 3.4-5.0 [facility] ([facility]) Aspartate aminotransferase [Enzymatic activity/volume] in Serum or Plasma 18 U/L 15-37 [facility] ([facility] ) Alanine aminotransferase [Enzymatic activity/volume] in Seru m or Plasma 29 U/L 12-78 [facility] ([facility]) Proteinase 3 Ab [Units/volume] in Serum 7.3 g/dL 6.4-8.2 [facility] A/G Ratio 1.28 CALC 1.00-1.90 [facility] Glomerular filtration rate/1.73 sq M pre dicted among non-blacks [Volume Rate/Area] in Serum or Plasma by Creatinine-based formula (MDRD) 34 mL/min [facility] ([facility]) Glomerular filtration rate/1.73 sq M pre dicted among blacks [Volume Rate/Area] in Serum or Plasma by Creatinine-based formula (MDRD) 41 mL/min [facility] ([facility]) <content>CHRONIC KIDNEY DISEASE STAGING PER NKF</content>
<content></content>
<content>STAGE I & II GFR >= 60 NORMAL TO MILDLY DECREASED</content>
<content>STAGE III GFR 30-59 MODERATELY DECREASED</content>
<content>STAGE IV GFR 15-29 SEVERELY DECREASED</content>
<content>STAGE V GFR <15 VERY LITTLE GFR LEFT</content>
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
<content></content> Procedure Vital Signs ID Date Data Source UNK Name Value Range Interpretation Code Description Data Source(s) Body temperature 65.4 [degF] 65.4 [degF] [facility] Body weight 62.597 kg 62.597 kg [facility] Body mass index (BMI) [Ratio] 23.7 kg/m2 23.7 k g/m2 [facility] ([facility]) Heart rate 66 /min 66 /min [facility] Diastolic blood pressure 81 mm[Hg] 81 mm[Hg] [facility] ([facility]) Systolic blood pressure 127 mm[Hg] 127 mm[Hg] M [facility] ([facility]) Body weight 138.00 [lb_av] 138.00 [lb_av] [facility] ([facility]) Body height 64 [in_i] 64 [in_i] [facility] 5'4" Body temperature 96.8 [degF] 96.8 [degF] [facility] ([facility] Body mass index (BMI) [Ratio] 24.8 kg/m2 24.8 k g/m2 [facility] ([facility] ) Body weight 140.00 [lb_av] 140.00 [lb_av] [facility] T ([facility] ) Body height 63 [in_i] 63 [in_i] [facility] ([facility] 5'3" Body temperature 97.3 [degF] 97.3 [degF] [facility] ([facility] ) Body mass index (BMI) [Ratio] 24.6 kg/m2 24.6 k g/m2 [facility] ([facility]) Body weight 139.00 [lb_av] 139.00 [lb_av] [facility] T ([facility]) Body height 63 [in_i] 63 [in_i] [facility] ([facility]) 5'3" Heart rate 78 /min 78 /min [facility] ([facility]) Diastolic blood pressure 90 mm[Hg] 90 mm[Hg] [facility] ([facility]) Systolic blood pressure 160 mm[Hg] 160 mm[facility]Hg] [facility] Body mass index (BMI) [Ratio] 24.9 kg/m2 24.9 k g/m2 [facility] ([facility] ) Body weight 145.00 [lb_av] 145.00 [lb_av] [facility] T ([facility] ) Body height 64 [in_i] 64 [in_i] [facility] ([facility] 5'4" Body temperature 97.0 [degF] 97.0 [degF] [facility] ([facility] ) Body mass index (BMI) [Ratio] 25.0 kg/m2 25.0 k g/m2 [facility] ([facility]) Body weight 141.25 [lb_av] 141.25 [lb_av] [facility] T ([facility]) Body height 63 [in_i] 63 [in_i] [facility] ([facility]) 5'3" Heart rate 68 /min 68 /min [facility] ([facility]) Diastolic blood pressure 78 mm[Hg] 78 mm[Hg] [facility] ([facility]) Systolic blood pressure 128 mm[Hg] 128 mm[Hg] [facility] ([facility]) Systolic blood pressure 130 mm[Hg] 130 mm[Hg] [facility] ([facility]) Diastolic blood pressure 72 mm[Hg] 72 mm[Hg] [facility] ([facility]) Heart rate 66 /min 66 /min [facility] ([facility]) Body height 63 [in_i] 63 [in_i] [facility] ([facility]) 5'3" Body weight 148.00 [lb_av] 148.00 [lb_av] [facility] Body mass index (BMI) [Ratio] 26.2 kg/m2 26.2 k g/m2 [facility] ([facility]) Patient Treatment Plan of Care Planned Activity Planned Date Details Description Data Source (s) Xelpros 0.005% Ophthalmic Emulsion 12/24/2019 12:00:00 AM CARLIE RESTREPO (Kevin Caicedo MD [facility]) Xelpros 0.005% Ophthalmic Emulsion 03/05/2019 12:00:00 AM [facility] KAYE (Kevin Caicedo MD [facility])
[2020-05-04 08:47] LABS: BASO # 0.1 10^3/uL (0.0-0.2); BASO % 0.3 % (0.0-1.0); HEMATOCRIT 40.5 % (36.0-47.0); HEMOGLOBIN 13.3 g/dl (12.0-15.5); LYMPH # 0.8 10^3/uL (1.5-5.0); LYMPH % 2.7 % (24.0-44.0); MEAN CORPUSCULAR HEMOGLOBIN 30.6 pg (27.0-33.0); MEAN CORPUSCULAR HGB CONC 32.8 g/dl (32.0-36.5); MEAN CORPUSCULAR VOLUME 93.3 fl (80.0-96.0); MONO % 3.4 % (0.0-5.0); NEUTROPHILS # 26.3 10^3/uL (1.5-8.5); NEUTROPHILS % 91.9 % (36.0-66.0); PLATELET COUNT, AUTOMATED 364 10^3/uL (150-450); RED BLOOD COUNT 4.34 10^6/uL (4.00-5.40); WHITE BLOOD COUNT 28.7 10^3/uL (4.0-10.0)
[2020-05-04 08:56] LABS: INR 0.9; PARTIAL THROMBOPLASTIN TIME 28.3 SECONDS (24.2-38.5); PROTHROMBIN TIME 12.4 SECONDS (12.5-14.3)
[2020-05-04 09:14] LABS: ALBUMIN 4.2 GM/DL (3.2-5.2); ALT/SGPT 41 U/L (12-78); BILIRUBIN,DIRECT 0.1 MG/DL (0.0-0.2); BILIRUBIN,TOTAL 0.4 MG/DL (0.2-1.0); BLOOD UREA NITROGEN 9 MG/DL (7-18); CALCIUM LEVEL 9.3 MG/DL (8.8-10.2); CARBON DIOXIDE LEVEL 21 MEQ/L (21-32); CHLORIDE LEVEL 100 MEQ/L (98-107); CK-MB VALUE MASS 3.6 NG/ML (<3.6); CPK CREATINE PHOSPHOKINASE 142 U/L (26-192); CREATININE FOR GFR 0.76 MG/DL (0.55-1.30); GLOMERULAR FILTRATION RATE > 60.0 (>39); GLUCOSE, FASTING 103 MG/DL (70-100); LIPASE 396 U/L (73-393); MB/CK RELATIVE INDEX 2.54 (< OR =4); POTASSIUM SERUM 3.8 MEQ/L (3.5-5.1); SODIUM LEVEL 133 MEQ/L (136-145); TOTAL PROTEIN 7.5 GM/DL (6.4-8.2); TROPONIN I < 0.02 NG/ML (< 0.10)
[2020-05-04 09:27] LABS: ACETAMINOPHEN LEVEL < 2.0 UG/ML (10.0-30.0); SALICYLATE LEVEL 4.4 MG/DL (5.0-30.0)
[2020-05-04] MEDS ORDERED: KETOROLAC 30 MG/ML 1ML VIAL IV ONE (10:30)
--- NOTE | 2020-05-04 10:50 | REP ---
INDICATION: fall COMPARISON: None. TECHNIQUE: Four views left knee. FINDINGS: There is no acute fracture or dislocation. There is moderately severe medial joint space narrowing. There is mild diffuse subchondral sclerosis and spurring. No radiographic evidence of a significant joint effusion. IMPRESSION: No fracture or dislocation. Degenerative changes as above. <Electronically signed by Mike Lutz > 05/04/20 1110
--- NOTE | 2020-05-04 11:57 | ED PDOC ---
Post-Departure Follow-Up ct c spine faxed to dr stanton for fu Mercedes Valentino MD May 04, 2020 11:57
[2020-05-04] MEDS ORDERED: LIDOCAINE 2% 5ML JELLY UROJET TOP ONE (12:15)
[2020-05-04 13:13] LABS: AMPHETAMINES LEVEL URINE NEGATIVE (NEGATIVE); BARBITURATES URINE NEGATIVE (NEGATIVE); BENZODIAZEPINES URINE NEGATIVE (NEGATIVE); CANNABINOIDS URINE NEGATIVE (NEGATIVE); COCAINE METABOLITE URINE NEGATIVE (NEGATIVE); METHADONE URINE NEGATIVE (NEGATIVE); OPIATES URINE NEGATIVE (NEGATIVE); PHENCYCLIDINE URINE NEGATIVE (NEGATIVE)
--- NOTE | 2020-05-04 14:01 | REP ---
INDICATION: pain, fall, neg xray. COMPARISON: Radiographs today. TECHNIQUE: Axial CT left hip performed with sagittal and coronal reconstruction images. FINDINGS: There is a nondisplaced fracture of the left sacrum. There is a nondisplaced fracture of the ischium at the anterior aspect of the left acetabulum. There is a mildly displaced fracture of the left inferior pubic ramus. There is a nondisplaced fracture of the right pubis. Proximal left femur is intact with no fracture. There are moderate degenerative changes at the left hip joint with joint space narrowing, subchondral sclerosis and spurring. Visualized soft tissue structures appear unremarkable. IMPRESSION: No fracture proximal left femur. There is a nondisplaced fracture of the left sacrum. There is a nondisplaced fracture of the left ischium at the anterior aspect of the left acetabulum. There is a mildly displaced fracture of the left inferior pubic ramus. There is nondisplaced fracture of the right pubis. <Electronically signed by Mike Lutz > 05/04/20 0382
[2020-05-04 14:02] LABS: BASO % 0.2 % (0.0-1.0); EOS % 0.1 % (0.0-3.0); HEMATOCRIT 36.2 % (36.0-47.0); HEMOGLOBIN 12.2 g/dl (12.0-15.5); LYMPH # 0.8 10^3/uL (1.5-5.0); LYMPH % 3.9 % (24.0-44.0); MEAN CORPUSCULAR HEMOGLOBIN 30.8 pg (27.0-33.0); MEAN CORPUSCULAR HGB CONC 33.7 g/dl (32.0-36.5); MEAN CORPUSCULAR VOLUME 91.4 fl (80.0-96.0); MONO # 0.8 10^3/uL (0.0-0.8); MONO % 4.1 % (0.0-5.0); NEUTROPHILS # 17.3 10^3/uL (1.5-8.5); NEUTROPHILS % 90.8 % (36.0-66.0); PLATELET COUNT, AUTOMATED 308 10^3/uL (150-450); RED BLOOD COUNT 3.96 10^6/uL (4.00-5.40); WHITE BLOOD COUNT 19.1 10^3/uL (4.0-10.0)
[2020-05-04] MEDS ORDERED: PRAV20TA2 PO (14:54)
[2020-05-04] MEDS ORDERED: D31000TA2 PO (14:54)
[2020-05-04] MEDS ORDERED: MAALOX 30 ML SUSP *UDC PO PRN (16:45)
[2020-05-04] MEDS ORDERED: MOM 30ML SUSPENSION UDC PO PRN (16:45)
--- NOTE | 2020-05-04 16:56 | HPEPDOC ---
[facility] Medical History & Physical Date of Admission May 04, 2020 Date of Service: May 04, 2020 History and Physical CHIEF COMPLAINT: Suicidal ideation, left hip pain HISTORY OF PRESENT ILLNESS: 74 old female with history of COPD, anxiety, depression, called EMS. Subsequent to having suicidal ideation and having had plan to walk down to her garage, start the car engine and induce CO poisoning. While walking downstairs, she had a mechanical fall that resulted in left-sided hip pain. Patient spent some time on the ground before calling EMS. On arrival to the ED, patient was noted to have a WBC count 20.7 on repeat .. Hemoglobin 13.3. Lactic acid of 3.1. Lipase of 396. Alcohol level was 0.1. Left hip CT without contrast showed a nondisplaced fracture of the left sacrum and nondisplaced fracture of the left issue him at the anterior aspect of left acetabulum and a mildly displaced fracture of the left inferior pubic ramus. Finally, there was a nondisplaced fracture of the right pubis. The ED spoke to Dr. Barragan, orthopedic surgeon technology applications teacher, who recommended weightbearing as tolerated and no further orthopedic surgery workup while inpatient. PAST MEDICAL HISTORY: COPD ETOH use disorder Anxiety Depression PAST SURGICAL HISTORY: denies prior hx SOCIAL HISTORY: Lives alone Former smoker ETOH use disorder, last drink 05/03/20 FAMILY HISTORY: patient unable to specify ALLERGIES: Please see below. REVIEW OF SYSTEMS: 10 point review of systems conducted, pertinent findings specified in HPI HOME MEDICATIONS: Please see below. PHYSICAL EXAMINATION: VITAL SIGNS: please see below General: NAD, comfortable HEENT: PERRLA, EOMI, sclerae clear Neck: supple, normal ROM, no JVD Respiratory: lungs CTAB, no wheeze, no rales, no crackles CVS: RRR, normal S1, S2, no murmurs Abdo: soft, no masses, no hepatosplenomegaly, BS+, no rebound tenderness RAY: normal voluntary anal tone, no saddle anesthesia Extremities: no edema, pulses 2+ MSK: ROM limited by pain. Neuro: no focal neuro deficits, moving all 4 extremities, CN2-12 intact. Strength 5/5 in all 4 extremities. No nystagmus. Psych: calm, cooperative, AAO x 3 LABORATORY DATA: See below. IMAGING: L hip CT (05/04/20): No fracture proximal left femur. There is a nondisplaced fracture of the left sacrum. There is a nondisplaced fracture of the left ischium at the anterior aspect of the left acetabulum. There is a mildly displaced fracture of the left inferior pubic ramus. There is nondisplaced fracture of the right pubis. CT head wo contrast (05/04/20): No acute intracranial hemorrhage or edema. CT cervical spine wo contrast (05/04/20): Bones/joints: No acute fracture. Normal alignment. Discs/Spinal canal/Neural foramina: There is severe intervertebral disc space loss at C5/6 and C6/7. There are coarse ventral bridging osteophytes. There is multilevel facet hypertrophy. At C5/6, changes contribute to severe right neural foraminal narrowing. Lungs: Lung apices are normal. Soft tissues: There is a 10 mm right thyroid lobe hypodensity. No acute fracture. MICROBIOLOGY: Please see below. ASSESSMENT: 74 old female with history of COPD, anxiety, depression, etoh disorder, sustained a mechanical fall while intoxicated and in process of a suicidal attempt. She was walking to her car to start [employer] and cause CO jazmine lopez, when she fell on stairs and sustained numerous pelvic fractures as seen on her imaging. Per ortho, WBAT. Patient is admtited for PT/OT eval, and likely transfer to [facility] once her mobility goals have been addressed. . PLAN: #SI - Patient denies active suicidal ideation. - One-to-one sitter - D/w psychiatrist, Dr. Mcnair. Patient will likely require transfer to [facility] - consult placed for Dr. Valdovinos, as per Dr. Mcnair's recommendations #Numerous pelvic fractures - d/w Dr. Barragan, no intervention at this time, recommends outpatient follow up. Weight bearing as tolerated. - no signs of spinal cord compression, normal anal tone on RAY, no saddle anesthesia - PT/OT eval ordered. - pain control tramadol prn #HTN - started amlodipine, HCTZ #Leukocytosis - possible 2/2 demargination - afebrile, no physical symptoms - UA clear, normal CXR - will order procal #Elevated Lipase - Lipase 396 - no abdominal pain on exam - hx of etoh use, possibly chronic pancreatitis #ETOH use disorder - [facility] protocol - thiamine, folate #Depression - will hold sertraline until psychiatry assessment Dispo: likely [facility] transfer Vital Signs Vital Signs Date Time Temp Pulse Resp B/P (MAP) Pulse Ox O2 Delivery O2 Flow Rate FiO2 05/04/20 08:16 97 Room Air 05/04/20 07:18 98.2 73 18 Laboratory Data Labs 24H Laboratory Tests 2 05/04/20 08:27: Immature Granulocyte % (Auto) 1.7, Neutrophils (%) (Auto) 91.9H, Lymphocytes (%) (Auto) 2.7L, Monocytes (%) (Auto) 3.4, Eosinophils (%) (Auto) 0.0, Basophils (%) (Auto) 0.3, Neutrophils # (Auto) 26.3H, Lymphocytes # (Auto) 0.8L, Monocytes # (Auto) 1.0H, Eosinophils # (Auto) 0.0, Basophils # (Auto) 0.1, Nucleated Red Blood Cells % (auto) 0.0, Prothrombin Time 12.4, Prothromb Time International Ratio 0.90, Activated Partial Thromboplast Time 28.3, Anion Gap 12, Glomerular Filtration Rate > 60.0, Lactic Acid Level 3.1*H, Calcium Level 9.3, Total Bilirubin 0.4, Direct Bilirubin 0.1, Aspartate Amino Transf (AST/SGOT) 31, Alanine Aminotransferase (ALT/SGPT) 41, Alkaline Phosphatase 92, Total Creatine Kinase 142, Creatine Kinase MB 3.6, Creatine Kinase MB Relative Index 2.54, Troponin I < 0.02, Total Protein 7.5, Albumin 4.2, Albumin/Globulin Ratio 1.3, Lipase 396H, Thyroid Stimulating Hormone (TSH) 2.180, Salicylates Level 4.4L, Acetaminophen Level < 2.0L, Ethyl Alcohol Level 0.100H 05/04/20 12:31: Urine Color YELLOW, Urine Appearance CLEAR, Urine pH 5.0, Urine Specific [place] 1.006, Urine Protein NEGATIVE, Urine Glucose (UA) NEGATIVE, Urine Ketones NEGATIVE, Urine Blood NEGATIVE, Urine Nitrite NEGATIVE, Urine Bilirubin NEGATIVE, Urine Urobilinogen 0.2, Urine Leukocyte Esterase NEGATIVE, Urine WBC (Auto) 0, Urine RBC (Auto) 1, Urine Hyaline Casts (Auto) 0, Urine Bacteria (Auto) NEGATIVE, Urine Squamous Epithelial Cells 2, Urine Mucus (Auto) SMALL, Urine Sperm (Auto) , Urine Opiates Screen NEGATIVE, Urine Methadone Screen NEGATIVE, Urine Barbiturates Screen NEGATIVE, Urine Phencyclidine Screen NEGATIVE, Urine Amphetamines Screen NEGATIVE, Urine Benzodiazepines Screen NEGATIVE, Urine Cocaine Metabolite Screen NEGATIVE, Urine Cannabinoids Screen NEGATIVE 05/04/20 13:19: Lactic Acid Followup at 4 Hours 1.7 05/04/20 13:25: Immature Granulocyte % (Auto) 0.9, Neutrophils (%) (Auto) 90.8H, Lymphocytes (%) (Auto) 3.9L, Monocytes (%) (Auto) 4.1, Eosinophils (%) (Auto) 0.1, Basophils (%) (Auto) 0.2, Neutrophils # (Auto) 17.3H, Lymphocytes # (Auto) 0.8L, Monocytes # (Auto) 0.8, Eosinophils # (Auto) 0.0, Basophils # (Auto) 0.0, Nucleated Red Blood Cells % (auto) 0.0 05/04/20 16:22: CBC/BMP Laboratory Tests 05/04/20 08:27 05/04/20 13:25 Microbiology Microbiology 05/04/20 Blood Culture, Received Pending 05/04/20 Blood Culture, Received Pending Home Medications Scheduled Amlodipine Besylate (Amlodipine Besylate) 5 Mg Tablet, 5 MG PO DAILY Carboxymethylcellulose Sodium (Refresh Tears) 15 Ml Drops, 1 DROP OU QID Cholecalciferol (Vitamin D3) (Vitamin D3) 1,000 Unit Tablet, 2,000 UNITS PO QHS Escitalopram Oxalate (Lexapro) 5 Mg Tablet, 5 MG PO DAILY Famotidine (Famotidine) 40 Mg Tablet, 40 MG PO QHS Hydrochlorothiazide (Hydrochlorothiazide) 12.5 Mg Capsule, 12.5 MG PO DAILY Latanoprost (Xelpros) 0.005% 2.5ML Drps.emuls, 1 DROP OU QHS Pravastatin Sodium (Pravastatin Sodium) 20 Mg Tablet, 20 MG PO QHS Scheduled PRN Acetaminophen (8Hr Arthritis Pain) 650 Mg Tablet.er, 650 MG PO Q4H PRN for PAIN OR FEVER Allergies Coded Allergies: No Known Allergies (Verified , 05/03/20) A-FIB/CHADSVASC A-FIB History Current/History of A-Fib/PAF?: No Current PO Anticoag Therapy: No FINA BAR MD May 04, 2020 16:56
[2020-05-04 17:13] LABS: RSV AMPLIFICATION NEGATIVE (NEGATIVE)
--- OUTSIDE RECORDS SUMMARY | 2020-05-04 17:23 | CCD ---
Author Author [facility] Organization [facility] Address Unknown Phone Unavailable Care Team Providers Care Extension Division Director Name Role Phone Altagracia Harding MD Unavailable [...] Unavailable DRAZEK, I CONSUELO PA Unavailable Unavailable Akbar F Sean VANCE Unavailable [...] Unavailable Unavailable Tra Webber MD Unavailable Unavailable White Tra Sean VANCE Unavailable Unavailable WhiteTra MD Unavailable Unavailable White Tra Sean VANCE Unavailable Unavailable White Tra Sean VANCE Unavailable Unavailable White Tra Sean VANCE Unavailable Unavailable White Tra Sean VANCE Unavailable Unavailable White Tra Sean VANCE Unavailable Unavailable White Tra Sean VANCE Unavailable Unavailable White Tra Sean VANCE Unavailable Unavailable White Tra Sean VANCE Unavailable Unavailable White F Sean VANCE Unavailable Unavailable White, F Sean Unavailable Unavailable White Tra Sean VANCE Unavailable Unavailable Jane HARDINGEW DO Unavailable [phone] [...] JAMIL DO Unavailable [phone] Jane HARDING DO Unavailable [phone] Re-disclosure Warning The records that you are [...] is protected by Article 27-F of the [facility] Public Health law. If you continue you may have access to information: Regarding HIV / AIDS; Provided by facilities licensed or operated by the [facility] Office of Mental Health; or Provided by the [facility] Office for People With Developmental Disabilities. If such information is present, then the following [facility] mandated warning applies: This information has been [...] law may result in a fine or fpc sentence or both. A general authorization for [...] AM EST [facility] Outpatient Attender: CONSUELO HASSAN Physical Therapy 01/28/2020 0 8:45:00 AM EDT [facility] ([facility]) Office Visit Attender: CONSUELO HASSAN Physical Therapy 2019 01:15:00 PM EDT [facility] ([facility]) Outpatient Attender: Sean Espino 01/12 11:00:00 AM EDT [facility] ([facility] ) Outpatient<td ID="encounterTypeDescripti onID0">10 Month Follow- Up</td><td>Jamil Harding DO</td><td>Kevin Wooten MD [facility]</td><td>12/24/2019</td><td>7:39AM</td><td>8:45AM</td><td><content ID="encounterDiagnosisID0-0">Dry Eye Syndrome Both Eyes</content>, <content ID="encounterDiagnosisID0-1">Glaucoma Open-angle Primary</content>, <content ID="encounterDiagnosisID0-2">Posterior Capsule Opacification Eccentric Capsule Both Eyes</content>, <content ID="encounterDiagnosisID0-3">Blepharitis Squamous</content></td> Attender: JAMIL Bhakta MD [facility] 12/24/2019 07:39:00 AM EDT - 12/24/2019 08:45:00 AM EDT Blepharitis SquamousGlaucoma Open-angle PrimaryPosterior Capsule Opacification Eccentric Capsule Both EyesDry Eye Syndrome Both Eyes KAYE (Kevin Caicedo MD [facility]) Blepharitis Squamous Glaucoma Open-angle Primary Posterior Capsule Opacification Eccentri c Capsule Both Eyes Dry Eye Syndrome Both Eyes OFFICE OUTPATIENT NEW 30 MINUTES Attender: CONSUELO HASSAN Physic al Therapy 12/08/2019 08:30:00 AM EDT [facility] ([facility]) Outpatient<td ID="encounterTypeDescripti onID1">VISUAL FIELD 24-2</td><td>Jamil Harding DO</td><td>Kevin Wooten MD [facility]</td><td>12/08/2019</td><td>7:13AM</td><td>7:31AM</td><td><content ID="encounterDiagnosisID1-0">Glaucoma Open-angle Primary</content></td> Attender: JAMIL Bhakta MD [facility] 12/08/2019 07:13:00 AM EDT - 12/08/2019 07:31:00 AM EDT Glaucoma Open-angle Primary KAYE (Kevin Caicedo MD [facility]) Glaucoma Open-angle Primary Immunizations Vaccine Date Status Description Data Source(s) Influenza, injectable, MDCK, preservative free, deandra valent 01/13/2020 11:25:00 AM EDT completed [facility]) Influenza, injectable, MDCK, preservative free, deandra valent 03/11/2019 08:04:00 AM EST completed [facility] ([facility]) Medications Medication Brand Name Start [...] 02/04/2020 12:00:00 AM EDT active M EDENT ([facility]) 40 mg 01/14/2020 12:00:00 AM EDT tablet 90 TAKE 1 TABLET BY MOUTH NIGHTLY TAKE 1 TABLET BY MOUTH NIGHTLY SOLD: 01/16/2020 [facility] Famotidine 40 MG Oral Tablet FAMOTIDINE 01/14/2020 12:00:00 AM EDT tab let 90 TAKE 1 TABLET BY MOUTH NIGHTLY TAKE 1 TABLET BY MOUTH NIGHTLY SOLD: 04/25/2020 [facility] Xelpros Xelpros 01/13/2020 12:00:00 AM EDT active [facility] ([facility]) Immunization Adminstration,1 Vaccine/Toxoid 01/13/2020 12:00 :00 AM EDT completed [facility] ([facility]) Medication administered onsite Xelpros 0.005% Ophthalmic Emulsion Xelpros 0.005% Ophthalmic Emulsion 12/24/2019 12:00:00 AM EDT 1 active latanoprost 0.05 MG/ML Ophthalmic Suspension [Xelpros] KAYE (Kevin Caicedo MD [facility]) tramadol hydrochloride 50 MG Oral Tablet Tramadol HCL 12/08/2019 12:00:00 AM EDT completed [facility] ([facility]) 50 mg 12/08/2019 12:00:00 AM EDT tablet [...] 07/09/2019 12:00:00 AM EDT ORAL completed [facility] ([facility]) Famotidine 40 MG Oral Tablet Famotidine 07/09/2019 12:00:00 AM EDT ORAL active [facility] ([facility]) 20 mg 04/03/2019 12:00:00 AM [...] 03/11/2019 12:00 :00 AM EST completed [facility] ([facility]) Medication administered onsite Xelpros 0.005% Ophthalmic Emulsion Xelpros 0.005% Ophthalmic Emulsion 03/05/2019 12:00:00 AM EST 1 aborted latanoprost 0.05 MG/ML Ophthalmic Suspension [Xelpros] KAYE (Kevin Caicedo MD [facility]) 20 mg 09/12/2018 12:00:00 AM EDT [...] type / Coverage type Policy ID Covered constitution party ID Covered constitution party's relationship to huff Policy Huff Plan Information BCBS 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 [id number] SP [id number] BC BS [place] [facility] B [id number] S [id number] BCBS of [facility] Other 0 Self 0 BCBS of [facility] Other 0 Self 0 BCBS of [facility] Other 0 Self 0 BCBS Federal Plan Commercial [id number] Self [id number] Medicare Natl Govt Servic Medicare Primary [id number] Self [id number] Federal BC/BS Commercial [id number] Self [id number] Medicare Natl Govt Servic Medicare Primary [id number] Self [id number] EXCELLUS BCBS FEDERAL [id number] SP [id number] BS Federal Commercial [id number] Self [id number] BC BS [place] FEDER[place] B [id number] S [id number] Medicare Natl Govt Servic Medicare Primary [id number] Self [id number] Federal BC/BS Commercial [id number] Self [id number] MEDICARE [id number] SP [id number] A EXCELLUS BCBS FEDERAL [id number] SP [id number] Medicare Natl Govt Servic Medicare Primary Self Federal BC/BS Commercial [phone] Self [id number] BCBS Federal Plan Commercial Self BS Of [facility] Commercial Self [id number] T Problems, Conditions, and Diagnoses Code Display Name Description Problem Type Effective Dates Data Source(s) 332016515 Castillo's esophagus Castillo's esophagus Problem 0 04/27/2020 12:00:00 AM EST [facility] ([facility]) Surgeries/Procedures Procedure Description Date Indications Data Source(s) RADEX WRIST 2 VIEWS 02/18/2020 12:00:00 AM EST [facility] ([facility]) ARTHROCENTESIS ASPIR&/INJECTION MAJOR JT/BURSA 12:00:00 AM EDT [facility] ([facility]) ARTHROCENTESIS ASPIR&/INJECTION MAJOR JT/BURSA 12:00:00 AM EDT [facility] ([facility]) X-Ray Hip Unilateral With Pelvis 2-3 Views 01/28/2020 12:00:00 AM EDT [facility] ([facility]) RADIOLOGIC EXAM KNEE COMPLETE 4/MORE VIEWS 01/28/2020 12:00:00 AM EDT [facility] ([facility]) RADIOLOGIC EXAM KNEE COMPLETE 4/MORE VIEWS 01/28/2020 12:00:00 AM EDT [facility] ([facility]) RADEX WRIST 2 VIEWS 01/26/2020 12:00:00 AM EDT [facility] ([facility]) RADEX WRIST 2 VIEWS 12/30/2019 12:00:00 AM EDT [facility] ([facility]) Intermediate Eye Exam Established Patient Intermediate Eye Exam Established Patient 12/24/2019 12:00:00 AM EDT KAYE (Archie Caicedo MD [facility]) CLTX DSTL RADIAL FX/EPIPHYSL SEP W/O MANJ 12/08/2019 1 2:00:00 AM EDT [facility] ([facility]) RADEX WRIST COMPLETE MINIMUM 3 VIEWS 12/08/2019 12:00: 00 AM EDT [facility] ([facility]) Visual Field (WAIVER OF LIABILITY ON FILE (ABN)) Visua l Field (WAIVER OF LIABILITY ON FILE (ABN)) 12/08/2019 12:00:00 AM EDT KAYE (Kevin Caicedo MD [facility]) Results ID Date Data Source [id number] 01/13/2020 11:56:00 AM EDT [facility] ([facility]) Name Value Range Interpretation Code Description Data Kimberly rce(s) Supporting Document(s) Thyrotropin [Units/volume] in Serum or Plasma by Detec tion limit <= 0.05 mIU/L 1.82 uIU/mL 0.36-3.74 [facility] ([facility] ) ID Date Data Source [id number] 01/13/2020 11:56:00 AM EDT [facility] ([facility]) Name Value Range Interpretation Code Description Data Kimberly rce(s) Supporting Document(s) Cholesterol [Mass/volume] in Serum or Plasma 206 mg/dL 131-200 [facility] ([facility]) Cholesterol in HDL [Mass/volume] in Serum or Plasma 56 mg/dL 35-60 [facility] ([facility]) Cholesterol in LDL [Mass/volume] in Serum or Plasma by calcu lation 119 CALC 50-159 [facility] ([facility]) Triglyceride [Mass/volume] in Serum or Plasma 153 mg/dL 30-150 [facility] ([facility]) ID Date Data Source [id number] 01/13/2020 11:56:00 AM EDT [facility] ([facility]) Name Value Range Interpretation Code Description Data Kimberly rce(s) Supporting Document(s) Urea nitrogen [Mass/volume] in Serum or Plasma 18 mg/dL 7-18 [facility] ([facility]) Glucose [Mass/volume] in Serum or Plasma 93 mg/dL 74-99 [facility] ([facility]) 100-125 mg/dL PRE-DIABETES/FASTING >126 mg/dL DIABETES/FASTING Sodium [Moles/volume] in Serum or Plasma 142 meq/L 136-145 [facility] ([facility]) Creatinine 1.0 mg/dL 0.6-1.3 [facility]) Potassium [Moles/volume] in Serum or Plasma 4.2 meq/L 3.5-5.1 [facility] ([facility]) Chloride [Moles/volume] in Serum or Plasma 107 meq/L 98-107 [facility] ([facility]) Carbon dioxide, total [Moles/volume] in Serum or Plasma 27 meq/L 21 -32 [facility] ([facility]) Calcium [Mass/volume] in Serum or Plasma 8.7 mg/dL 8.5-10.1 [facility] ([facility]) Total Bilirubin 0.5 mg/dL 0.2-1.0 [facility] ([facility]) Alkaline phosphatase isoenzyme [Units/volume] in Serum or Pl asma 77 mg/dL 46-116 [facility] ([facility]) Alanine aminotransferase [Enzymatic activity/volume] in Seru m or Plasma 24 U/L 12-78 [facility] ([facility]) Albumin [Mass/volume] in Serum or Plasma 3.9 g/dL 3.4-5.0 [facility] ([facility]) Aspartate aminotransferase [Enzymatic activity/volume] in Serum or Plasma 15 U/L 15-37 [facility] ([facility] ) Proteinase 3 Ab [Units/volume] in Serum 6.9 g/dL 6.4-8.2 [facility] ([facility]) A/G Ratio 1.30 CALC 1.00-1.90 [facility]) Glomerular filtration rate/1.73 sq M pre dicted among non-blacks [Volume Rate/Area] in Serum or Plasma by Creatinine-based formula (MDRD) 54 mL/min [facility] Glomerular filtration rate/1.73 sq M pre dicted among blacks [Volume Rate/Area] in Serum or Plasma by Creatinine-based formula (MDRD) Laboratory test result [facility] <content>CHRONIC KIDNEY DISEASE STAGING PER NKF</content>
<content></content>
<content>STAGE I & II GFR >= 60 NORMAL TO MILDLY DECREASED</content>
<content>STAGE III GFR 30-59 MODERATELY DECREASED</content>
<content>STAGE IV GFR 15-29 SEVERELY DECREASED</content>
<content>STAGE V GFR <15 VERY LITTLE GFR LEFT</content>
<content>ESRD GFR <15 ON COMPONENT ASSEMBLER</content>
<content></content> ID Date Data Source [id number] 01/13/2020 11:56:00 AM EDT [facility] ([facility]) Name Value Range Interpretation Code Description Data Kimberly rce(s) Supporting Document(s) Magnesium 2.0 mg/dL 1.8-2.4 [facility] ([facility]) ID Date Data Source [id number] 01/13/2020 11:56:00 AM EDT [facility] ([facility]) Name Value Range Interpretation Code Description Data Kimberly rce(s) Supporting Document(s) Leukocytes [#/volume] in Blood by Automated count 7.2 x10*3/UL 4.1-10 .9 [facility] ([facility]) Erythrocytes [#/volume] in Blood by Automated count 4.20 x10*6/UL 4.2 0-6.30 [facility] ([facility]) Hemoglobin [Mass/volume] in Blood 12.7 g/dL 12.0-18.0 [facility] ([facility]) MCV 88.1 fL 80.0-97.0 [facility] Hematocrit [Volume Fraction] of Blood by Automated count 37.0 % 3 7.0-51.0 [facility] ([facility]) MCH 30.3 pg 26.0-32.0 [facility] MCHC 34.4 g/dL 31.0-38.0 [facility]) Platelets [#/volume] in Blood by Automated count 344 x10*3/UL 140-440 [facility] ([facility]) Erythrocyte distribution width [Ratio] by Automated count 12.8 % 11.6-13.7 [facility] ([facility]) MPV 8.8 FL 7.8-11.0 [facility]) Lymph % 15.4 % 10.0-58.5 [facility] Neut % 78.7 % 37.0-92.0 [facility]) Lymph # 1.1 x10*3/UL 0.6-4.1 [facility] ([facility]) Mid % 5.9 % 1.7-9.3 [facility]) Neut # 5.6 x10*3/UL 2.0-7.8 [facility] ([facility]) Mid # 0.5 x10*3/UL 0.1-0.6 [facility] ([facility]) ID Date Data Source [id number] 09/17/2019 03:22:00 PM EDT [facility] ([facility]) Name Value Range Interpretation Code Description Data Kimberly rce(s) Supporting Document(s) Urea nitrogen [Mass/volume] in Serum or Plasma 21 mg/dL 7-18 [facility] ([facility]) Glucose [Mass/volume] in Serum or Plasma 81 mg/dL 74-99 [facility] ([facility]) 100-125 mg/dL PRE-DIABETES/FASTING >126 mg/dL DIABETES/FASTING Potassium [Moles/volume] in Serum or Plasma 3.4 meq/L 3.5-5.1 [facility] ([facility]) Creatinine 1.0 mg/dL 0.6-1.3 [facility] ([facility]) Sodium [Moles/volume] in Serum or Plasma 145 meq/L 136-145 [facility] ([facility]) Chloride [Moles/volume] in Serum or Plasma 108 meq/L 98-107 [facility] ([facility]) Carbon dioxide, total [Moles/volume] in Serum or Plasma 26 meq/L 21 -32 [facility] ([facility]) Calcium [Mass/volume] in Serum or Plasma 8.4 mg/dL 8.5-10.1 [facility] ([facility]) Glomerular filtration rate/1.73 sq M pre dicted among non-blacks [Volume Rate/Area] in Serum or Plasma by Creatinine-based formula (MDRD) 54 mL/min [facility] Glomerular filtration rate/1.73 sq M pre dicted among blacks [Volume Rate/Area] in Serum or Plasma by Creatinine-based formula (MDRD) Laboratory test result [facility] <content>CHRONIC KIDNEY DISEASE STAGING PER NKF</content>
<content></content>
<content>STAGE I & II GFR >= 60 NORMAL TO MILDLY DECREASED</content>
<content>STAGE III GFR 30-59 MODERATELY DECREASED</content>
<content>STAGE IV GFR 15-29 SEVERELY DECREASED</content>
<content>STAGE V GFR <15 VERY LITTLE GFR LEFT</content>
<content>ESRD GFR <15 ON COMPONENT ASSEMBLER</content>
<content></content> ID Date Data Source [id number] 09/11/2019 10:51:00 AM EDT [facility] ([facility]) Name Value Range Interpretation Code Description Data Kimberly rce(s) Supporting Document(s) Calcidiol [Mass/volume] in Serum or Plasma 74.2 24.0-80.0 [facility] ([facility]) This test was performed using FastCompact Particle Accelerationck I P Vitamin D immunoassay kit. Values obtained with different assay methods should not be used interchangeably. ID Date Data Source [id number] 09/11/2019 10:49:00 AM EDT [facility] Name Value Range Interpretation Code Description Data Kimberly rce(s) Supporting Document(s) Thyrotropin [Units/volume] in Serum or Plasma by Detec tion limit <= 0.05 mIU/L 2.11 uIU/mL 0.36-3.74 [facility] ([facility] ) ID Date Data Source [id number] 09/11/2019 10:49:00 AM EDT [facility] ([facility]) Name Value Range Interpretation Code Description Data Kimberly rce(s) Supporting Document(s) Cholesterol in LDL [Mass/volume] in Serum or Plasma by calcu lation 135 CALC 50-159 [facility] ([facility]) Cholesterol [Mass/volume] in Serum or Plasma 237 mg/dL 131-200 [facility] ([facility]) Triglyceride [Mass/volume] in Serum or Plasma 167 mg/dL 30-150 [facility] ([facility]) Cholesterol in HDL [Mass/volume] in Serum or Plasma 69 mg/dL 35-60 [facility] ([facility]) ID Date Data Source [id number] 09/11/2019 10:49:00 AM EDT [facility] ([facility]) Name Value Range Interpretation Code Description Data Kimberly rce(s) Supporting Document(s) Creatinine 1.5 mg/dL 0.6-1.3 [facility] ([facility]) Urea nitrogen [Mass/volume] in Serum or Plasma 29 mg/dL 7-18 [facility] ([facility]) Glucose [Mass/volume] in Serum or Plasma 96 mg/dL 74-99 [facility] ([facility]) 100-125 mg/dL PRE-DIABETES/FASTING >126 mg/dL DIABETES/FASTING Potassium [Moles/volume] in Serum or Plasma 4.4 meq/L 3.5-5.1 [facility] ([facility]) Sodium [Moles/volume] in Serum or Plasma 141 meq/L 136-145 [facility] ([facility]) Chloride [Moles/volume] in Serum or Plasma 102 meq/L 98-107 [facility] ([facility]) Alkaline phosphatase isoenzyme [Units/volume] in Serum or Pl asma 95 mg/dL 46-116 [facility] ([facility]) Total Bilirubin 0.8 mg/dL 0.2-1.0 [facility] ([facility]) Carbon dioxide, total [Moles/volume] in Serum or Plasma 29 meq/L 21 -32 [facility] ([facility]) Calcium [Mass/volume] in Serum or Plasma 9.8 mg/dL 8.5-10.1 [facility] ([facility]) Albumin [Mass/volume] in Serum or Plasma 4.1 g/dL 3.4-5.0 [facility] ([facility]) Aspartate aminotransferase [Enzymatic activity/volume] in Serum or Plasma 18 U/L 15-37 [facility] ([facility] ) Alanine aminotransferase [Enzymatic activity/volume] in Seru m or Plasma 29 U/L 12-78 [facility] ([facility]) Proteinase 3 Ab [Units/volume] in Serum 7.3 g/dL 6.4-8.2 [facility] ([facility]) A/G Ratio 1.28 CALC 1.00-1.90 [facility]) Glomerular filtration rate/1.73 sq M pre dicted among non-blacks [Volume Rate/Area] in Serum or Plasma by Creatinine-based formula (MDRD) 34 mL/min [facility] ([facility]) Glomerular filtration rate/1.73 sq M pre dicted among blacks [Volume Rate/Area] in Serum or Plasma by Creatinine-based formula (MDRD) 41 mL/min [facility] ([facility]) <content>CHRONIC KIDNEY DISEASE STAGING PER NKF</content>
<content></content>
<content>STAGE I & II GFR >= 60 NORMAL TO MILDLY DECREASED</content>
<content>STAGE III GFR 30-59 MODERATELY DECREASED</content>
<content>STAGE IV GFR 15-29 SEVERELY DECREASED</content>
<content>STAGE V GFR <15 VERY LITTLE GFR LEFT</content>
<content>ESRD GFR <15 ON COMPONENT ASSEMBLER</content>
<content></content> Procedure Vital Signs ID Date Data Source UNK Name Value Range Interpretation Code Description Data Source(s) Body temperature 65.4 [degF] 65.4 [degF] [facility] ([facility]) Body weight 62.597 kg 62.597 kg [facility] Body mass index (BMI) [Ratio] 23.7 kg/m2 23.7 k g/m2 [facility] ([facility]) Heart rate 66 /min 66 /min [facility] Diastolic blood pressure 81 mm[Hg] 81 mm[Hg] [facility] ([facility]) Systolic blood pressure 127 mm[Hg] 127 mm[Hg] M EDENT ([facility]) Body weight 138.00 [lb_av] 138.00 [lb_av] MEDEN T ([facility]) Body height 64 [in_i] 64 [in_i] [facility] ([facility]) 5'4" Body temperature 96.8 [degF] 96.8 [degF] [...] [Ratio] 24.6 kg/m2 24.6 k g/m2 [facility] ([facility]) Body weight 139.00 [lb_av] 139.00 [lb_av] MEDEN T ([facility]) Body height 63 [in_i] 63 [in_i] [facility] ([facility]) 5'3" Heart rate 78 /min 78 /min [facility] ([facility]) Diastolic blood pressure 90 mm[Hg] 90 mm[Hg] [facility] ([facility]) Systolic blood pressure 160 mm[Hg] 160 mm[Hg] M EDENT ([facility]) Body mass index (BMI) [Ratio] 24.9 [...] [Ratio] 25.0 kg/m2 25.0 k g/m2 [facility] ([facility]) Body weight 141.25 [lb_av] 141.25 [lb_av] MEDEN T ([facility]) Body height 63 [in_i] 63 [in_i] [facility] ([facility]) 5'3" Heart rate 68 /min 68 /min [facility] ([facility]) Diastolic blood pressure 78 mm[Hg] 78 mm[Hg] [facility] ([facility]) Systolic blood pressure 128 mm[Hg] 128 mm[Hg] EDENT ([facility]) Systolic blood pressure 130 mm[Hg] 130 mm[Hg] M EDENT ([facility]) Diastolic blood pressure 72 mm[Hg] 72 mm[Hg] [facility] ([facility]) Heart rate 66 /min 66 /min [facility] ([facility]) Body height 63 [in_i] 63 [in_i] [facility] ([facility]) 5'3" Body weight 148.00 [lb_av] 148.00 [lb_av] JAIRO Donohue ([facility]) Body mass index (BMI) [Ratio] 26.2 kg/m2 26.2 k g/m2 [facility] ([facility]) Patient Treatment Plan of Care Planned Activity Planned Date Details Description Data Source (s) Xelpros 0.005% Ophthalmic Emulsion 12/24/2019 12:00:00 AM CARLIE RESTREPO (Kevin Caicedo MD [facility]) Xelpros 0.005% Ophthalmic Emulsion 03/05/2019 12:00:00 AM CHET RESTREPO (Kevin Caicedo MD [facility])
[2020-05-04] MEDS ORDERED: LORazepam 2 MG TAB PO PRN (17:45)
[2020-05-04] MEDS: ACETAMINOPHEN TAB 650MG DOSE (2X325MG) PO PRN (18:57)
[2020-05-04] MEDS: DOCUSATE SODIUM 100MG CAPSULE PO SCH (21:00)
[2020-05-04] MEDS: FAMOTIDINE 20 MG TAB PO SCH (21:08)
[2020-05-04] MEDS: PRAVASTATIN 20 MG TAB PO SCH (21:08)
[2020-05-04] MEDS: VITAMIN D 1,000 INTERNATIONAL UNITS TABLET PO SCH (21:08)
[2020-05-04] MEDS: THIAMINE 100 MG TAB PO SCH (21:08)
[2020-05-04 21:50] VITALS: BP 180/86
[2020-05-04 22:00] VITALS: BP 158/78
[2020-05-05] MEDS: ACETAMINOPHEN TAB 650MG DOSE (2X325MG) PO PRN ×3 (02:32→20:46)
--- NOTE | 2020-05-05 05:34 | ECGEPIP ---
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
[2020-05-05 06:00] VITALS: BP 175/85
[2020-05-05 07:05] LABS: BASO % 0.3 % (0.0-1.0); EOS % 0.3 % (0.0-3.0); HEMATOCRIT 33.4 % (36.0-47.0); HEMOGLOBIN 11.3 g/dl (12.0-15.5); LYMPH # 0.9 10^3/uL (1.5-5.0); MEAN CORPUSCULAR HEMOGLOBIN 30.3 pg (27.0-33.0); MEAN CORPUSCULAR HGB CONC 33.8 g/dl (32.0-36.5); MEAN CORPUSCULAR VOLUME 89.5 fl (80.0-96.0); MONO # 0.8 10^3/uL (0.0-0.8); MONO % 6.5 % (0.0-5.0); NEUTROPHILS # 9.8 10^3/uL (1.5-8.5); NEUTROPHILS % 84.3 % (36.0-66.0); PLATELET COUNT, AUTOMATED 274 10^3/uL (150-450); RED BLOOD COUNT 3.73 10^6/uL (4.00-5.40); WHITE BLOOD COUNT 11.6 10^3/uL (4.0-10.0)
[2020-05-05 07:29] LABS: ALBUMIN 3.4 GM/DL (3.2-5.2); ALT/SGPT 30 U/L (12-78); BILIRUBIN,TOTAL 1.3 MG/DL (0.2-1.0); BLOOD UREA NITROGEN 16 MG/DL (7-18); CALCIUM LEVEL 8.8 MG/DL (8.8-10.2); CARBON DIOXIDE LEVEL 25 MEQ/L (21-32); CHLORIDE LEVEL 103 MEQ/L (98-107); CREATININE FOR GFR 0.85 MG/DL (0.55-1.30); GLOMERULAR FILTRATION RATE > 60.0 (>39); GLUCOSE, FASTING 103 MG/DL (70-100); MAGNESIUM LEVEL 1.9 MG/DL (1.8-2.4); POTASSIUM SERUM 3.7 MEQ/L (3.5-5.1); SODIUM LEVEL 133 MEQ/L (136-145); TOTAL PROTEIN 6.5 GM/DL (6.4-8.2)
[2020-05-05] MEDS: ENOXAPARIN 40MG/0.4ML SYRINGE (J1650 PER 10MG) SC SCH (07:56)
[2020-05-05] MEDS: hydroCHLOROthiazide 12.5 MG CAPSULE PO SCH (07:57)
[2020-05-05] MEDS: FOLIC ACID 1 MG TAB PO SCH (07:57)
[2020-05-05] MEDS: DOCUSATE SODIUM 100MG CAPSULE PO SCH ×2 (07:57→20:45)
[2020-05-05] MEDS: THIAMINE 100 MG TAB PO SCH ×2 (07:57→20:45)
[2020-05-05] MEDS: MULTIVITAMINS/MINERALS THERAP 1 TAB PO SCH (07:57)
[2020-05-05] MEDS: amLODIPine 5 MG TAB PO SCH (07:57)
[2020-05-05] MEDS: LATANOPROST 0.005% OPHTH SOLN 2.5 ML OU SCH (13:51)
[2020-05-05 14:00] VITALS: BP_SYST 139; BP_SYST 166; BP_DIAS 66; BP_DIAS 83
[2020-05-05] MEDS: VITAMIN D 1,000 INTERNATIONAL UNITS TABLET PO SCH (20:45)
[2020-05-05] MEDS: FAMOTIDINE 20 MG TAB PO SCH (20:45)
[2020-05-05] MEDS: PRAVASTATIN 20 MG TAB PO SCH (20:45)
[2020-05-05 22:00] VITALS: BP 158/79
[2020-05-06] MEDS: traMADol 50 MG TAB PO PRN ×3 (04:44→20:30)
[2020-05-06] MEDS: ACETAMINOPHEN TAB 650MG DOSE (2X325MG) PO PRN ×2 (04:44→17:55)
[2020-05-06 06:00] VITALS: BP 126/83
--- NOTE | 2020-05-06 06:38 | IPNPDOC ---
Text Note Date of Service The patient was seen on 05/05/20. NOTE Subjective: Patient seen and examined at bedside. No acute overnight events reported. Patient has no new medical complaints. Objective: VS: see below General: NAD, sitting comfortably in chair HEENT: NC/AT Lungs; CTA b/l Heart: +S2S1, RRR Abd: soft, NT, +BS Ext: no edema A/P: 74 old female with history of COPD, anxiety, depression, etoh disorder, sustained a mechanical fall while intoxicated and in process of a suicidal attempt. She was walking to her car to start engine and cause CO poisining, when she fell on stairs and sustained numerous pelvic fractures as seen on her imaging. Per ortho, WBAT. Patient was admtited for PT/OT eval, and pending further eval by psychiatry. #SI - One-to-one sitter - D/w psychiatrist Dr. Valdovinos, pending evaluation # pelvic fractures - d/w Dr. Barragan, no intervention at this time, recommends outpatient follow up. Weight bearing as tolerated. - no signs of spinal cord compression, normal anal tone on RAY, no saddle anesthesia - PT/OT eval ordered. - pain control tramadol prn #HTN - started amlodipine, HCTZ #Leukocytosis - improving - likely demargination #Elevated Lipase - Lipase 396 - no abdominal pain on exam - hx of etoh use, possibly chronic pancreatitis #ETOH use disorder - [facility] protocol - thiamine, folate #Depression - will hold sertraline until psychiatry assessment Dispo: likely IMHU transfer VS,Fishbone, I+O VS, Fishbone, I+O Vital Signs Date Time Temp Pulse Resp B/P (MAP) Pulse Ox O2 Delivery O2 Flow Rate FiO2 05/06/20 06:00 98.4 94 18 126/83 (97) 91 Room Air I&O- Last 24 Hours up to 6 AM 05/06/20 05:59 Intake Total 770 ml Output Total 0 ml Balance 770 ml SANJUANITA VANCE MD May 06, 2020 06:38
[2020-05-06 07:35] LABS: BASO % 0.4 % (0.0-1.0); EOS # 0.1 10^3/uL (0.0-0.5); EOS % 0.6 % (0.0-3.0); HEMATOCRIT 33.3 % (36.0-47.0); HEMOGLOBIN 11.3 g/dl (12.0-15.5); LYMPH % 8.6 % (24.0-44.0); MEAN CORPUSCULAR HEMOGLOBIN 30.5 pg (27.0-33.0); MEAN CORPUSCULAR HGB CONC 33.9 g/dl (32.0-36.5); MEAN CORPUSCULAR VOLUME 89.8 fl (80.0-96.0); MONO % 8.8 % (0.0-5.0); NEUTROPHILS % 80.7 % (36.0-66.0); PLATELET COUNT, AUTOMATED 264 10^3/uL (150-450); RED BLOOD COUNT 3.71 10^6/uL (4.00-5.40); WHITE BLOOD COUNT 11.2 10^3/uL (4.0-10.0)
[2020-05-06 08:05] LABS: ALBUMIN 3.5 GM/DL (3.2-5.2); ALT/SGPT 24 U/L (12-78); BLOOD UREA NITROGEN 17 MG/DL (7-18); CALCIUM LEVEL 8.9 MG/DL (8.8-10.2); CARBON DIOXIDE LEVEL 27 MEQ/L (21-32); CHLORIDE LEVEL 102 MEQ/L (98-107); CREATININE FOR GFR 0.75 MG/DL (0.55-1.30); GLOMERULAR FILTRATION RATE > 60.0 (>39); GLUCOSE, FASTING 96 MG/DL (70-100); MAGNESIUM LEVEL 1.9 MG/DL (1.8-2.4); POTASSIUM SERUM 3.4 MEQ/L (3.5-5.1); SODIUM LEVEL 135 MEQ/L (136-145); TOTAL PROTEIN 6.3 GM/DL (6.4-8.2)
[2020-05-06] MEDS: hydroCHLOROthiazide 12.5 MG CAPSULE PO SCH (08:05)
[2020-05-06] MEDS: MULTIVITAMINS/MINERALS THERAP 1 TAB PO SCH (08:05)
[2020-05-06] MEDS: FOLIC ACID 1 MG TAB PO SCH (08:05)
[2020-05-06] MEDS: THIAMINE 100 MG TAB PO SCH ×2 (08:05→20:29)
[2020-05-06] MEDS: DOCUSATE SODIUM 100MG CAPSULE PO SCH ×2 (08:05→20:29)
[2020-05-06] MEDS: amLODIPine 5 MG TAB PO SCH (08:05)
[2020-05-06] MEDS: ENOXAPARIN 40MG/0.4ML SYRINGE (J1650 PER 10MG) SC SCH (08:06)
[2020-05-06] MEDS ORDERED: POTASSIUM CHLORIDE 10 MEQ SR TABLET PO ONE (09:45)
[2020-05-06] MEDS: ESCITALOPRAM OXALATE 5MG TABLET (LEXAPRO) PO SCH (11:33)
--- NOTE | 2020-05-06 12:27 | IPNPDOC ---
Text Note Date of Service The patient was seen on 05/06/20. NOTE Subjective: Patient seen and examined at bedside. No acute overnight events reported. Patient has no new medical complaints. Objective: VS: see below General: NAD, sitting comfortably in chair HEENT: NC/AT Lungs; CTA b/l Heart: +S2S1, RRR Abd: soft, NT, +BS Ext: no edema A/P: 74 old female with history of COPD, anxiety, depression, etoh disorder, sustained a mechanical fall while intoxicated and in process of a suicidal attempt. She was walking to her car to start engine and cause CO poisoning, when she fell on stairs and sustained numerous pelvic fractures as seen on her imaging. Per ortho, WBAT. Patient was admtited for PT/OT eval, and pending further eval by psychiatry. #SI - seen by psychiatry - assistance appreciated - recs for o/p follow up # pelvic fractures - d/w Dr. Barragna, no intervention at this time, recommends outpatient follow up. Weight bearing as tolerated. - no signs of spinal cord compression, normal anal tone on RAY, no saddle anesthesia - continue with PT, pain control #HTN - started amlodipine, HCTZ #Leukocytosis - improving - likely demargination #Elevated Lipase - Lipase 396 - no abdominal pain on exam - hx of etoh use, possibly chronic pancreatitis #ETOH use disorder - [facility] protocol - thiamine, folate #Depression - started on lexapro as per psych - consultation appreciated Dispo: cleared by psych for o/p f/u, pending further PT VS,Fishbone, I+O VS, Fishbone, I+O Laboratory Tests 05/06/20 06:41 Vital Signs Date Time Temp Pulse Resp B/P (MAP) Pulse Ox O2 Delivery O2 Flow Rate FiO2 05/06/20 08:05 94 126/83 05/06/20 06:00 98.4 18 91 Room Air I&O- Last 24 Hours up to 6 AM 05/06/20 06:00 Intake Total 1070 ml Output Total 0 ml Balance 1070 ml SANJUANITA VANCE MD May 06, 2020 12:27
[2020-05-06 14:00] VITALS: BP 130/80
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
[2020-05-06] MEDS: PRAVASTATIN 20 MG TAB PO SCH (20:29)
[2020-05-06] MEDS: LATANOPROST 0.005% OPHTH SOLN 2.5 ML OU SCH (20:29)
[2020-05-06] MEDS: FAMOTIDINE 20 MG TAB PO SCH (20:30)
[2020-05-06] MEDS: VITAMIN D 1,000 INTERNATIONAL UNITS TABLET PO SCH (20:30)
[2020-05-06 22:00] VITALS: BP 124/66
[2020-05-07] MEDS: ACETAMINOPHEN TAB 650MG DOSE (2X325MG) PO PRN ×3 (01:47→20:41)
[2020-05-07 05:48] LABS: BASO % 0.3 % (0.0-1.0); EOS # 0.2 10^3/uL (0.0-0.5); EOS % 1.2 % (0.0-3.0); HEMATOCRIT 33.3 % (36.0-47.0); HEMOGLOBIN 10.9 g/dl (12.0-15.5); LYMPH # 1.2 10^3/uL (1.5-5.0); LYMPH % 9.4 % (24.0-44.0); MEAN CORPUSCULAR HGB CONC 32.7 g/dl (32.0-36.5); MEAN CORPUSCULAR VOLUME 91.7 fl (80.0-96.0); MONO # 1.1 10^3/uL (0.0-0.8); MONO % 8.3 % (0.0-5.0); NEUTROPHILS # 10.4 10^3/uL (1.5-8.5); NEUTROPHILS % 80.1 % (36.0-66.0); PLATELET COUNT, AUTOMATED 261 10^3/uL (150-450); RED BLOOD COUNT 3.63 10^6/uL (4.00-5.40); WHITE BLOOD COUNT 12.9 10^3/uL (4.0-10.0)
[2020-05-07 06:00] VITALS: BP 143/69
[2020-05-07] MEDS: traMADol 50 MG TAB PO PRN ×2 (06:16→18:29)
[2020-05-07 06:19] LABS: ALBUMIN 3.2 GM/DL (3.2-5.2); ALT/SGPT 22 U/L (12-78); BILIRUBIN,TOTAL 0.9 MG/DL (0.2-1.0); BLOOD UREA NITROGEN 21 MG/DL (7-18); CALCIUM LEVEL 8.9 MG/DL (8.8-10.2); CARBON DIOXIDE LEVEL 29 MEQ/L (21-32); CHLORIDE LEVEL 104 MEQ/L (98-107); CREATININE FOR GFR 0.88 MG/DL (0.55-1.30); GLOMERULAR FILTRATION RATE > 60.0 (>39); GLUCOSE, FASTING 103 MG/DL (70-100); MAGNESIUM LEVEL 1.8 MG/DL (1.8-2.4); POTASSIUM SERUM 3.9 MEQ/L (3.5-5.1); SODIUM LEVEL 136 MEQ/L (136-145); TOTAL PROTEIN 6.3 GM/DL (6.4-8.2)
[2020-05-07] MEDS: ENOXAPARIN 40MG/0.4ML SYRINGE (J1650 PER 10MG) SC SCH (09:35)
[2020-05-07] MEDS: ESCITALOPRAM OXALATE 5MG TABLET (LEXAPRO) PO SCH (09:35)
[2020-05-07] MEDS: FOLIC ACID 1 MG TAB PO SCH (09:35)
[2020-05-07] MEDS: THIAMINE 100 MG TAB PO SCH (09:35)
[2020-05-07] MEDS: MULTIVITAMINS/MINERALS THERAP 1 TAB PO SCH (09:35)
[2020-05-07] MEDS: DOCUSATE SODIUM 100MG CAPSULE PO SCH ×2 (09:35→20:41)
[2020-05-07] MEDS: hydroCHLOROthiazide 12.5 MG CAPSULE PO SCH (09:37)
[2020-05-07] MEDS: amLODIPine 5 MG TAB PO SCH (09:37)
--- NOTE | 2020-05-07 13:20 | IPNPDOC ---
Text Note Date of Service The patient was seen on 05/07/20. NOTE Subjective: Patient seen and examined at bedside. No acute overnight events reported. Patient has no new medical complaints. Objective: VS: see below General: NAD, sitting comfortably in chair HEENT: NC/AT Lungs; CTA b/l Heart: +S2S1, RRR Abd: soft, NT, +BS Ext: no edema A/P: 74 old female with history of COPD, anxiety, depression, etoh disorder, sustained a mechanical fall while intoxicated and in process of a suicidal attempt. She was walking to her car to start engine and cause CO poisoning, when she fell on stairs and sustained numerous pelvic fractures as seen on her imaging. Per ortho, WBAT. Patient was admtited for PT/OT eval, and pending further eval by psychiatry. #SI - seen by psychiatry - assistance appreciated - recs for o/p follow up # pelvic fractures - d/w Dr. Barragan, no intervention at this time, recommends outpatient follow up. Weight bearing as tolerated. - no signs of spinal cord compression, normal anal tone on RAY, no saddle anesthesia - continue with PT, pain control #HTN - started amlodipine, HCTZ #Leukocytosis - improving - likely demargination #Elevated Lipase - Lipase 396 - no abdominal pain on exam - hx of etoh use, possibly chronic pancreatitis #ETOH use disorder - no signs/symptoms of withdrawal - [facility] protocol - thiamine, folate #Depression - started on lexapro as per psych - consultation appreciated Dispo: cleared by psych for o/p f/u, pending further PT VS,Nghia, I+O VS, Nghia, I+O Laboratory Tests 05/07/20 05:28 Vital Signs Date Time Temp Pulse Resp B/P (MAP) Pulse Ox O2 Delivery O2 Flow Rate FiO2 05/07/20 09:37 96 157/83 05/07/20 07:00 18 05/07/20 06:00 97.5 Room Air 05/06/20 22:00 93 I&O- Last 24 Hours up to 6 AM 05/07/20 06:00 Intake Total 1560 ml Output Total 0 ml Balance 1560 ml SANJUANITA VANCE MD May 07, 2020 13:20
[2020-05-07 14:00] VITALS: BP 133/69
[2020-05-07] MEDS: REFRESH OPTIVE OU SCH ×2 (17:00→20:40)
[2020-05-07] MEDS: VITAMIN D 1,000 INTERNATIONAL UNITS TABLET PO SCH (20:41)
[2020-05-07] MEDS: PRAVASTATIN 20 MG TAB PO SCH (20:41)
[2020-05-07] MEDS: FAMOTIDINE 20 MG TAB PO SCH (20:41)
[2020-05-07] MEDS: LATANOPROST 0.005% OPHTH SOLN 2.5 ML OU SCH (20:42)
[2020-05-07 22:00] VITALS: BP 154/83
[2020-05-08] MEDS: traMADol 50 MG TAB PO PRN ×3 (02:09→15:59)
[2020-05-08] MEDS: ACETAMINOPHEN TAB 650MG DOSE (2X325MG) PO PRN ×3 (02:09→20:32)
[2020-05-08 06:00] VITALS: BP 133/68
[2020-05-08 07:20] LABS: BASO % 0.2 % (0.0-1.0); EOS # 0.2 10^3/uL (0.0-0.5); EOS % 1.9 % (0.0-3.0); HEMOGLOBIN 11.2 g/dl (12.0-15.5); LYMPH # 1.2 10^3/uL (1.5-5.0); LYMPH % 9.7 % (24.0-44.0); MEAN CORPUSCULAR HEMOGLOBIN 30.3 pg (27.0-33.0); MEAN CORPUSCULAR HGB CONC 32.9 g/dl (32.0-36.5); MEAN CORPUSCULAR VOLUME 91.9 fl (80.0-96.0); MONO # 0.9 10^3/uL (0.0-0.8); MONO % 7.2 % (0.0-5.0); NEUTROPHILS # 10.2 10^3/uL (1.5-8.5); NEUTROPHILS % 80.3 % (36.0-66.0); PLATELET COUNT, AUTOMATED 285 10^3/uL (150-450); WHITE BLOOD COUNT 12.7 10^3/uL (4.0-10.0)
[2020-05-08 07:46] LABS: ALBUMIN 3.4 GM/DL (3.2-5.2); ALT/SGPT 24 U/L (12-78); BILIRUBIN,TOTAL 0.8 MG/DL (0.2-1.0); BLOOD UREA NITROGEN 20 MG/DL (7-18); CALCIUM LEVEL 9.2 MG/DL (8.8-10.2); CARBON DIOXIDE LEVEL 29 MEQ/L (21-32); CHLORIDE LEVEL 100 MEQ/L (98-107); CREATININE FOR GFR 0.82 MG/DL (0.55-1.30); GLOMERULAR FILTRATION RATE > 60.0 (>39); GLUCOSE, FASTING 103 MG/DL (70-100); MAGNESIUM LEVEL 1.9 MG/DL (1.8-2.4); POTASSIUM SERUM 3.8 MEQ/L (3.5-5.1); SODIUM LEVEL 137 MEQ/L (136-145); TOTAL PROTEIN 6.6 GM/DL (6.4-8.2)
[2020-05-08] MEDS: ESCITALOPRAM OXALATE 5MG TABLET (LEXAPRO) PO SCH (09:13)
[2020-05-08] MEDS: hydroCHLOROthiazide 12.5 MG CAPSULE PO SCH (09:13)
[2020-05-08] MEDS: amLODIPine 5 MG TAB PO SCH (09:13)
[2020-05-08] MEDS: FOLIC ACID 1 MG TAB PO SCH (09:13)
[2020-05-08] MEDS: MULTIVITAMINS/MINERALS THERAP 1 TAB PO SCH (09:13)
[2020-05-08] MEDS: DOCUSATE SODIUM 100MG CAPSULE PO SCH ×2 (09:14→20:31)
[2020-05-08] MEDS: REFRESH OPTIVE OU SCH ×4 (09:15→20:31)
[2020-05-08] MEDS: ENOXAPARIN 40MG/0.4ML SYRINGE (J1650 PER 10MG) SC SCH (09:15)
[2020-05-08 14:00] VITALS: BP 137/72
[2020-05-08] MEDS: FAMOTIDINE 20 MG TAB PO SCH (20:31)
[2020-05-08] MEDS: PRAVASTATIN 20 MG TAB PO SCH (20:31)
[2020-05-08] MEDS: LATANOPROST 0.005% OPHTH SOLN 2.5 ML OU SCH (20:31)
[2020-05-08] MEDS: VITAMIN D 1,000 INTERNATIONAL UNITS TABLET PO SCH (20:32)
[2020-05-08 22:00] VITALS: BP 135/69
[2020-05-09] MEDS: traMADol 50 MG TAB PO PRN ×2 (03:41→12:52)
[2020-05-09] MEDS: ACETAMINOPHEN TAB 650MG DOSE (2X325MG) PO PRN ×3 (05:52→21:05)
[2020-05-09 06:00] VITALS: BP 137/72
[2020-05-09 07:29] LABS: BASO % 0.4 % (0.0-1.0); EOS # 0.3 10^3/uL (0.0-0.5); EOS % 2.6 % (0.0-3.0); HEMATOCRIT 33.3 % (36.0-47.0); LYMPH # 1.3 10^3/uL (1.5-5.0); LYMPH % 11.7 % (24.0-44.0); MEAN CORPUSCULAR HEMOGLOBIN 30.4 pg (27.0-33.0); MONO # 0.8 10^3/uL (0.0-0.8); MONO % 7.5 % (0.0-5.0); NEUTROPHILS # 8.3 10^3/uL (1.5-8.5); NEUTROPHILS % 76.9 % (36.0-66.0); PLATELET COUNT, AUTOMATED 291 10^3/uL (150-450); RED BLOOD COUNT 3.62 10^6/uL (4.00-5.40); WHITE BLOOD COUNT 10.8 10^3/uL (4.0-10.0)
[2020-05-09 07:59] LABS: ALBUMIN 3.3 GM/DL (3.2-5.2); ALT/SGPT 23 U/L (12-78); BILIRUBIN,TOTAL 0.8 MG/DL (0.2-1.0); BLOOD UREA NITROGEN 23 MG/DL (7-18); CARBON DIOXIDE LEVEL 28 MEQ/L (21-32); CHLORIDE LEVEL 101 MEQ/L (98-107); CREATININE FOR GFR 0.82 MG/DL (0.55-1.30); GLOMERULAR FILTRATION RATE > 60.0 (>39); GLUCOSE, FASTING 92 MG/DL (70-100); MAGNESIUM LEVEL 1.8 MG/DL (1.8-2.4); POTASSIUM SERUM 3.8 MEQ/L (3.5-5.1); SODIUM LEVEL 135 MEQ/L (136-145); TOTAL PROTEIN 6.4 GM/DL (6.4-8.2)
[2020-05-09] MEDS: hydroCHLOROthiazide 12.5 MG CAPSULE PO SCH (08:29)
[2020-05-09] MEDS: DOCUSATE SODIUM 100MG CAPSULE PO SCH ×2 (08:29→21:05)
[2020-05-09] MEDS: ENOXAPARIN 40MG/0.4ML SYRINGE (J1650 PER 10MG) SC SCH (08:30)
[2020-05-09] MEDS: FOLIC ACID 1 MG TAB PO SCH (08:30)
[2020-05-09] MEDS: MULTIVITAMINS/MINERALS THERAP 1 TAB PO SCH (08:30)
[2020-05-09] MEDS: REFRESH OPTIVE OU SCH ×4 (08:30→21:06)
[2020-05-09] MEDS: amLODIPine 5 MG TAB PO SCH (08:30)
[2020-05-09] MEDS: ESCITALOPRAM OXALATE 5MG TABLET (LEXAPRO) PO SCH (08:30)
[2020-05-09] MEDS: FAMOTIDINE 20 MG TAB PO SCH (21:05)
[2020-05-09] MEDS: VITAMIN D 1,000 INTERNATIONAL UNITS TABLET PO SCH (21:05)
[2020-05-09] MEDS: PRAVASTATIN 20 MG TAB PO SCH (21:05)
[2020-05-09] MEDS: LATANOPROST 0.005% OPHTH SOLN 2.5 ML OU SCH (21:06)
[2020-05-10] MEDS: LIDOCAINE 5% (LIDODERM) PATCH TD SCH ×2 (00:13→21:31)
[2020-05-10] MEDS: ACETAMINOPHEN TAB 650MG DOSE (2X325MG) PO PRN ×3 (02:15→12:23)
[2020-05-10 06:00] VITALS: BP 114/62
[2020-05-10 06:46] LABS: BASO % 0.3 % (0.0-1.0); EOS # 0.2 10^3/uL (0.0-0.5); EOS % 2.2 % (0.0-3.0); HEMATOCRIT 31.8 % (36.0-47.0); HEMOGLOBIN 10.5 g/dl (12.0-15.5); LYMPH # 1.2 10^3/uL (1.5-5.0); LYMPH % 12.3 % (24.0-44.0); MEAN CORPUSCULAR HEMOGLOBIN 30.4 pg (27.0-33.0); MEAN CORPUSCULAR VOLUME 92.2 fl (80.0-96.0); MONO # 0.7 10^3/uL (0.0-0.8); MONO % 7.2 % (0.0-5.0); NEUTROPHILS # 7.3 10^3/uL (1.5-8.5); NEUTROPHILS % 76.7 % (36.0-66.0); PLATELET COUNT, AUTOMATED 298 10^3/uL (150-450); RED BLOOD COUNT 3.45 10^6/uL (4.00-5.40); WHITE BLOOD COUNT 9.5 10^3/uL (4.0-10.0)
[2020-05-10] MEDS: traMADol 50 MG TAB PO PRN ×3 (06:52→21:31)
[2020-05-10 07:11] LABS: ALBUMIN 3.3 GM/DL (3.2-5.2); ALT/SGPT 25 U/L (12-78); BILIRUBIN,TOTAL 0.6 MG/DL (0.2-1.0); BLOOD UREA NITROGEN 24 MG/DL (7-18); CALCIUM LEVEL 9.1 MG/DL (8.8-10.2); CARBON DIOXIDE LEVEL 26 MEQ/L (21-32); CHLORIDE LEVEL 100 MEQ/L (98-107); GLOMERULAR FILTRATION RATE > 60.0 (>39); GLUCOSE, FASTING 90 MG/DL (70-100); POTASSIUM SERUM 3.9 MEQ/L (3.5-5.1); SODIUM LEVEL 137 MEQ/L (136-145); TOTAL PROTEIN 6.4 GM/DL (6.4-8.2)
[2020-05-10] MEDS: FOLIC ACID 1 MG TAB PO SCH (08:23)
[2020-05-10] MEDS: MULTIVITAMINS/MINERALS THERAP 1 TAB PO SCH (08:23)
[2020-05-10] MEDS: DOCUSATE SODIUM 100MG CAPSULE PO SCH ×2 (08:23→21:30)
[2020-05-10] MEDS: hydroCHLOROthiazide 12.5 MG CAPSULE PO SCH (08:23)
[2020-05-10] MEDS: ESCITALOPRAM OXALATE 5MG TABLET (LEXAPRO) PO SCH (08:24)
[2020-05-10] MEDS: amLODIPine 5 MG TAB PO SCH (08:24)
[2020-05-10] MEDS: ENOXAPARIN 40MG/0.4ML SYRINGE (J1650 PER 10MG) SC SCH (08:24)
[2020-05-10] MEDS: REFRESH OPTIVE OU SCH ×4 (08:25→21:30)
[2020-05-10] MEDS: **NOTE PATIENT COMMENT** MISC XX SCH (08:25)
[2020-05-10] MEDS: VITAMIN D 1,000 INTERNATIONAL UNITS TABLET PO SCH (21:30)
[2020-05-10] MEDS: FAMOTIDINE 20 MG TAB PO SCH (21:30)
[2020-05-10] MEDS: LATANOPROST 0.005% OPHTH SOLN 2.5 ML OU SCH (21:30)
[2020-05-10] MEDS: PRAVASTATIN 20 MG TAB PO SCH (21:30)
[2020-05-10 22:00] VITALS: BP 132/87
[2020-05-11] MEDS: ACETAMINOPHEN TAB 650MG DOSE (2X325MG) PO PRN ×2 (00:33→05:25)
[2020-05-11] MEDS: traMADol 50 MG TAB PO PRN (05:26)
[2020-05-11 06:40] LABS: BASO % 0.4 % (0.0-1.0); EOS # 0.3 10^3/uL (0.0-0.5); EOS % 2.7 % (0.0-3.0); HEMATOCRIT 33.3 % (36.0-47.0); HEMOGLOBIN 11.2 g/dl (12.0-15.5); LYMPH # 1.2 10^3/uL (1.5-5.0); LYMPH % 12.7 % (24.0-44.0); MEAN CORPUSCULAR HEMOGLOBIN 30.7 pg (27.0-33.0); MEAN CORPUSCULAR HGB CONC 33.6 g/dl (32.0-36.5); MEAN CORPUSCULAR VOLUME 91.2 fl (80.0-96.0); MONO # 0.8 10^3/uL (0.0-0.8); MONO % 8.6 % (0.0-5.0); NEUTROPHILS # 7.3 10^3/uL (1.5-8.5); NEUTROPHILS % 74.4 % (36.0-66.0); PLATELET COUNT, AUTOMATED 333 10^3/uL (150-450); RED BLOOD COUNT 3.65 10^6/uL (4.00-5.40); WHITE BLOOD COUNT 9.8 10^3/uL (4.0-10.0)
[2020-05-11 07:03] LABS: ALBUMIN 3.2 GM/DL (3.2-5.2); ALT/SGPT 27 U/L (12-78); BILIRUBIN,TOTAL 0.5 MG/DL (0.2-1.0); BLOOD UREA NITROGEN 29 MG/DL (7-18); CALCIUM LEVEL 9.1 MG/DL (8.8-10.2); CARBON DIOXIDE LEVEL 27 MEQ/L (21-32); CHLORIDE LEVEL 103 MEQ/L (98-107); CREATININE FOR GFR 0.91 MG/DL (0.55-1.30); GLOMERULAR FILTRATION RATE > 60.0 (>39); GLUCOSE, FASTING 93 MG/DL (70-100); POTASSIUM SERUM 3.6 MEQ/L (3.5-5.1); SODIUM LEVEL 136 MEQ/L (136-145); TOTAL PROTEIN 6.9 GM/DL (6.4-8.2)
[2020-05-11] MEDS: hydroCHLOROthiazide 12.5 MG CAPSULE PO SCH (08:58)
[2020-05-11] MEDS: FOLIC ACID 1 MG TAB PO SCH (08:58)
[2020-05-11] MEDS: DOCUSATE SODIUM 100MG CAPSULE PO SCH (08:58)
[2020-05-11 08:59] VITALS: BP 120/66
[2020-05-11] MEDS: MULTIVITAMINS/MINERALS THERAP 1 TAB PO SCH (08:59)
[2020-05-11] MEDS: ESCITALOPRAM OXALATE 5MG TABLET (LEXAPRO) PO SCH (08:59)
[2020-05-11] MEDS: amLODIPine 5 MG TAB PO SCH (08:59)
[2020-05-11] MEDS: REFRESH OPTIVE OU SCH (09:00)
[2020-05-11] MEDS: ENOXAPARIN 40MG/0.4ML SYRINGE (J1650 PER 10MG) SC SCH (09:01)
[2020-05-11] MEDS: **NOTE PATIENT COMMENT** MISC XX SCH (09:12)
[2020-05-11] MEDS ORDERED: LEXA5TAB13 PO (11:05)
[2020-05-11] MEDS ORDERED: AMLO1TAB24 PO (11:05)
[2020-05-11] MEDS ORDERED: ACET-1379 PO (11:05)
[2020-05-11] MEDS ORDERED: HYDR12CA PO (11:05)
--- NOTE | 2020-05-11 11:10 | DS.PDOC ---
Discharge Summary General Date of Admission May 04, 2020 at 16:41 Date of Discharge 05/11/2020 Discharge Summary PROCEDURES PERFORMED DURING STAY: [None]. ADMITTING DIAGNOSES: 1. Suicidal ideation 2. left hip pain DISCHARGE DIAGNOSES: 1. Suicidal ideation 2. pelvic fractures COMPLICATIONS/CHIEF COMPLAINT: Alcohol Intoxication,Pelvic Fracture,Suicidal Idea. HISTORY OF PRESENT ILLNESS: From admitting H&P: 74 old female with history of COPD, anxiety, depression, called EMS. Subsequent to having suicidal ideation and having had plan to walk down to her garage, start the car engine and induce CO poisoning. While walking downstairs, she had a mechanical fall that resulted in left-sided hip pain. Patient spent some time on the ground before calling EMS. On arrival to the ED, patient was noted to have a WBC count 20.7 on repeat 19.1. Hemoglobin 13.3. Lactic acid of 3.1. Lipase of 396. Alcohol level was 0.1. Left hip CT without contrast showed a nondisplaced fracture of the left sacrum and nondisplaced fracture of the left issue him at the anterior aspect of left acetabulum and a mildly displaced fracture of the left inferior pubic ramus. Finally, there was a nondisplaced fracture of the right pubis. The ED spoke to Dr. Barragan, orthopedic surgeon opinion polls survey worker, who recommended weightbearing as tolerated and no further orthopedic surgery workup while inpatient. HOSPITAL COURSE: 74 old female with history of COPD, anxiety, depression, etoh disorder, sustained a mechanical fall while intoxicated and in process of a suicidal attempt. She was walking to her car to start engine and cause CO p oisoning, when she fell on stairs and sustained numerous pelvic fractures as seen on her imaging. Per ortho, WBAT. Patient was admtited for PT/OT eval, and eval by psychiatry. # SI/depression: seen by psychiatry recs for o/p follow up. Started on lexapro as per psych # pelvic fractures: d/w Dr. Barragan, no intervention at this time, recommends outpatient follow up. Weight bearing as tolerated. no signs of spinal cord compression, normal anal tone on RAY, no saddle anesthesia continue with PT, pain control. Discharge to subacute rehabilitation. DISCHARGE MEDICATIONS: Please see below. ALLERGIES: Please see below. PHYSICAL EXAMINATION ON DISCHARGE: VITAL SIGNS: Please see below. General: NAD, sitting comfortably in chair HEENT: NC/AT Lungs; CTA b/l Heart: +S2S1, RRR Abd: soft, NT, +BS LABORATORY DATA: Please see below. IMAGING: See chart PROGNOSIS: fair ACTIVITY: [As tolerated]. DIET: 2g sodium diet DISPOSITION: DISCHARGE INSTRUCTIONS: Please follow up with your primary care physician within 1 week from discharge. If you do not have one, please follow up with us to schedule an appointment. Please keep all of your follow up appointments. Please call central to book your appointments with hospital specialists. Please take all your medications as prescribed. Please call/come to Clinic or go to the Emergency Department if - Temp >101, intractable Nausea/Vomiting, Diarrhea, Mouth sores, Headaches, Altered mental status, Seizures, sudden onset of swelling, bleeding, shortness of breath or chest pain. ITEMS TO FOLLOWUP ON ON OUTPATIENT: 1. follow up with PCP, Psychiatry and orthopedic surgery. DISCHARGE CONDITION: [Stable]. TIME SPENT ON DISCHARGE: Greater than 35 minutes. Vital Signs/I&Os Vital Signs Date Time Temp Pulse Resp B/P (MAP) Pulse Ox O2 Delivery O2 Flow Rate FiO2 05/11/20 08:59 76 120/66 05/11/20 05:56 16 05/10/20 22:00 98.1 Room Air 05/10/20 06:00 95 I&O- Last 24 Hours up to 6 AM 05/11/20 06:00 Intake Total 2720 ml Balance 2720 ml Laboratory Data Labs 24H Laboratory Tests 2 05/11/20 06:21: Immature Granulocyte % (Auto) 1.2, Neutrophils (%) (Auto) 74.4H, Lymphocytes (%) (Auto) 12.7L, Monocytes (%) (Auto) 8.6H, Eosinophils (%) (Auto) 2.7, Basophils (%) (Auto) 0.4, Neutrophils # (Auto) 7.3, Lymphocytes # (Auto) 1.2L, Monocytes # (Auto) 0.8, Eosinophils # (Auto) 0.3, Basophils # (Auto) 0.0, Nucleated Red Blood Cells % (auto) 0.0, Anion Gap 6L, Glomerular Filtration Rate > 60.0, Calcium Level 9.1, Magnesium Level 2.0, Total Bilirubin 0.5, Aspartate Amino Transf (AST/SGOT) 12, Alanine Aminotransferase (ALT/SGPT) 27, Alkaline Phosphatase 70, Total Protein 6.9, Albumin 3.2, Albumin/Globulin Ratio 0.9L 05/11/20 09:40: Coronavirus (COVID-19)(PCR) NEGATIVE CBC/BMP Laboratory Tests 05/11/20 06:21 Microbiology Microbiology 05/04/20 Blood Culture - Final, Complete NO GROWTH AFTER 5 DAYS 05/04/20 Blood Culture - Final, Complete NO GROWTH AFTER 5 DAYS Discharge Medications Scheduled Amlodipine Besylate (Amlodipine Besylate) 5 Mg Tablet, 5 MG PO DAILY Carboxymethylcellulose Sodium (Refresh Tears) 15 Ml Drops, 1 DROP OU QID, (Reported) Cholecalciferol (Vitamin D3) (Vitamin D3) 1,000 Unit Tablet, 2,000 UNITS PO QHS, (Reported) Escitalopram Oxalate (Lexapro) 5 Mg Tablet, 5 MG PO DAILY Famotidine (Famotidine) 40 Mg Tablet, 40 MG PO QHS, (Reported) Hydrochlorothiazide (Hydrochlorothiazide) 12.5 Mg Capsule, 12.5 MG PO DAILY Latanoprost (Xelpros) 0.005% 2.5ML Drps.emuls, 1 DROP OU QHS, (Reported) Pravastatin Sodium (Pravastatin Sodium) 20 Mg Tablet, 20 MG PO QHS, (Reported) Scheduled PRN Acetaminophen (8Hr Arthritis Pain) 650 Mg Tablet.er, 650 MG PO Q4H PRN for PAIN OR FEVER Allergies Coded Allergies: No Known Allergies (Verified , 05/03/20) OSEI PACHECO MD May 11, 2020 11:10
== END 2020-05-11 13:42 | DRG 551 ==
LOC: M ED 07:11 → M ED INP 16:41 → M MS5PR 21:56
PROVIDERS: ADMIT Family Medicine; ATTEND Family Medicine
DX: S32.10XA Unspecified fracture of sacrum, initial encounter for closed fracture (principal); S32.415A Nondisplaced fracture of anterior wall of left acetabulum, initial encounter for closed fracture; S32.502A Unspecified fracture of left pubis, initial encounter for closed fracture; R45.851 Suicidal ideations; S32.501A Unspecified fracture of right pubis, initial encounter for closed fracture; J44.9 Chronic obstructive pulmonary disease, unspecified; I10 Essential (primary) hypertension; F41.9 Anxiety disorder, unspecified; E55.9 Vitamin D deficiency, unspecified; F32.9 Major depressive disorder, single episode, unspecified; F10.129 Alcohol abuse with intoxication, unspecified; W10.9XXA Fall (on) (from) unspecified stairs and steps, initial encounter; Y92.015 Private garage of single-family (private) house as the place of occurrence of the external cause; Z87.891 Personal history of nicotine dependence; Y99.8 Other external cause status; Z20.822 Contact with and (suspected) exposure to COVID-19

== ENCOUNTER → 2020-05-12 | Outpatient (REF) ==
[~2020-05-12] MED LIST changes: +ACET-1379 PO; +AMLO1TAB24 PO; +D31000TA2 PO; +HYDR12CA PO; +LEXA5TAB13 PO; +PRAV20TA2 PO
== END ==
PROVIDERS: ATTEND Internal Medicine
DX: Z20.822 Contact with and (suspected) exposure to COVID-19 (principal)

== ENCOUNTER → 2020-05-19 | Outpatient (REF) ==
[2020-05-19 11:52] LABS: HEMATOCRIT 36.7 % (36.0-47.0); HEMOGLOBIN 11.8 g/dl (12.0-15.5); MEAN CORPUSCULAR HEMOGLOBIN 29.9 pg (27.0-33.0); MEAN CORPUSCULAR HGB CONC 32.2 g/dl (32.0-36.5); MEAN CORPUSCULAR VOLUME 92.9 fl (80.0-96.0); PLATELET COUNT, AUTOMATED 570 10^3/uL (150-450); RED BLOOD COUNT 3.95 10^6/uL (4.00-5.40); WHITE BLOOD COUNT 11.9 10^3/uL (4.0-10.0)
[2020-05-19 12:24] LABS: BLOOD UREA NITROGEN 25 MG/DL (7-18); CALCIUM LEVEL 9.7 MG/DL (8.8-10.2); CARBON DIOXIDE LEVEL 31 MEQ/L (21-32); CHLORIDE LEVEL 95 MEQ/L (98-107); CREATININE FOR GFR 0.76 MG/DL (0.55-1.30); GLOMERULAR FILTRATION RATE > 60.0 (>39); GLUCOSE, FASTING 78 MG/DL (70-100); SODIUM LEVEL 133 MEQ/L (136-145)
== END ==
PROVIDERS: ATTEND Internal Medicine
DX: I10 Essential (primary) hypertension (principal)

== ENCOUNTER → 2020-05-19 | Outpatient (REF) | PROVIDERS: ATTEND Internal Medicine | DX: Z20.822 Contact with and (suspected) exposure to COVID-19 (principal) ==

== ENCOUNTER → 2020-05-26 | Outpatient (REF) | payer BC, MEDICARE | PROVIDERS: ATTEND Internal Medicine | DX: Z20.822 Contact with and (suspected) exposure to COVID-19 (principal) ==

== ENCOUNTER → 2020-06-22 | Outpatient (CLI) | payer MEDICARE, BC ==
--- NOTE | 2020-06-22 11:36 | REP ---
INDICATION: F/U FX. COMPARISON: 05/04/2020 TECHNIQUE: Two AP views of the pelvis FINDINGS: The subtle nondisplaced fractures of the sacrum, ischium, inferior ramus and acetabulum are again essentially obscured by osteopenia, degenerative changes and positioning. There does not appear to be any evidence for residual fracture displacement or new fracture/dislocation appreciated. IMPRESSION: Previous fractures only identified on CT due to osteopenia and degenerative changes are again not well evaluated by radiographic evaluation. However, there is no evidence for new fracture or dislocation of prior fractures. <Electronically signed by Paras Pitts > 06/22/20 1131
== END ==
LOC: M SOG 10:10
PROVIDERS: ATTEND Orthopaedic Surgery Sports Medicine
DX: S32.810D Multiple fractures of pelvis with stable disruption of pelvic ring, subsequent encounter for fracture with routine healing (principal); X58.XXXD Exposure to other specified factors, subsequent encounter

== ENCOUNTER → 2020-11-24 | Outpatient (CLI) | payer MEDICARE, BC ==
[~2020-11-24] MED LIST changes: +OMEP-218
== END ==
LOC: M LABSMTC 09:44
PROVIDERS: ATTEND Anesthesiology
DX: Z01.818 Encounter for other preprocedural examination (principal); Z11.52 Encounter for screening for COVID-19

== ENCOUNTER 2020-11-29 07:35 | Day surgery (SDC) | payer BC ==
[~2020-11-29] VITALS: Ht 162.6 cm; Wt 60.8 kg
[~2020-11-29 07:35] MED LIST changes: +NS 1,000 ML IV ONE
[2020-11-29] MEDS ORDERED: fentaNYL 100 MCG/2 ML INJECTION (J3010) As Ordered ONE (08:10)
[2020-11-29] MEDS ORDERED: LIDOCAINE 2% 100MG/5ML SDV (FOR ANES.) As Ordered ONE (08:10)
[2020-11-29] MEDS ORDERED: propofoL 200 MG/20 ML VIAL As Ordered ONE (08:10)
--- NOTE | 2020-11-29 08:50 | ROOR ---
Patient Name: Rona Patton Procedure Date: 11/29/2020 8:36 AM Date of : 1945 Age: 75 Room: [facility] Gender: Female Note Status: Finalized Procedure: Upper Endoscopy + Biopsies Indications: Heartburn, Exclusion of Castillo's esophagus Providers: Irvin Harding MD Referring MD: Sean Webber MD Requesting Provider: Medicines: Monitored Anesthesia Care Complications: No immediate complications. Procedure: Pre-Anesthesia Assessment: - The heart rate, respiratory rate, oxygen saturations, blood pressure, adequacy of pulmonary ventilation, and response to care were monitored throughout the procedure. The Endoscope was introduced through the mouth, and advanced to the second part of duodenum. The upper GI endoscopy was accomplished without difficulty. The patient tolerated the procedure well. Findings: The Z-line was variable and was found 35 cm from the incisors. Multiple biopsies were obtained with cold forceps for evaluation to rule out Castillo's Esophagus randomly at the gastroesophageal junction. A medium-sized hiatal hernia was present. No other significant abnormalities were identified in a careful examination of the stomach. The exam of the duodenum was otherwise normal. Impression: - Z-line variable, 35 cm from the incisors. - Medium-sized hiatal hernia. - Multiple biopsies were obtained at the gastroesophageal junction. - The examination was otherwise normal. Recommendation: - Patient has a contact number available for emergencies. The signs and symptoms of potential delayed complications were discussed with the patient. Return to normal activities tomorrow. Written discharge instructions were provided to the patient. - High fiber diet. - Discharge patient to home. - Follow an antireflux regimen. - Continue present medications. - Await pathology results. - Telephone GI clinic for pathology results in 1 week. - Return to referring physician. - The findings and recommendations were discussed with the patient's family. Procedure Code(s): --- Professional --- 83326, Esophagogastroduodenoscopy, flexible, transoral; with biopsy, single or multiple Diagnosis Code(s): --- Professional --- K22.8, Other specified diseases of esophagus K44.9, Diaphragmatic hernia without obstruction or gangrene R12, Heartburn CPT copyright 2019 [employer]. All rights reserved. The codes documented in this report are preliminary and upon hostess host review may be revised to meet current compliance requirements. Irvin Harding MD Irvin Harding MD 11/29/2020 8:49:50 AM Electronically signed by Irvin Harding MD Number of Addenda: 0 Note Initiated On: 11/29/2020 8:36 AM Estimated Blood Loss: Estimated blood loss: none.
[2020-11-29 09:16] VITALS: BP 146/70
== END 2020-11-29 09:17 | disposition home or self-care (01) ==
LOC: M OPP 07:35
PROVIDERS: ATTEND Internal Medicine Gastroenterology
DX: K22.8 Other specified diseases of esophagus (principal); K44.9 Diaphragmatic hernia without obstruction or gangrene; R12 Heartburn; K22.70 Barrett's esophagus without dysplasia; K21.9 Gastro-esophageal reflux disease without esophagitis; Z79.899 Other long term (current) drug therapy; F17.210 Nicotine dependence, cigarettes, uncomplicated
CPT/HCPCS: 43239; 88305; J3010

== ENCOUNTER → 2021-02-02 | Outpatient (REF) | payer BC ==
[~2021-02-02] MED LIST changes: -NS 1,000 ML IV ONE
[2021-02-02 18:45] LABS: % LABILE ALKALINE PHOSPHATASE 74.7 %
== END ==
LOC: M LAB REF 16:19
PROVIDERS: ATTEND Family Medicine
DX: D72.829 Elevated white blood cell count, unspecified (principal); R74.8 Abnormal levels of other serum enzymes

== ENCOUNTER → 2021-05-23 | Outpatient (CLI) | payer BC ==
[~2021-05-23] MED LIST changes: +ISOVUE-370 76% 100ML VIAL As Ordered ONE; +OMEP-173; +OMEP-173 PO; -OMEP-218; -OMEP-218 PO
== END ==
LOC: M RAD 15:09
PROVIDERS: ATTEND Nurse Practitioner Adult Health
DX: I73.9 Peripheral vascular disease, unspecified (principal)

== ENCOUNTER → 2021-06-29 | Outpatient (CLI) | payer BC ==
[~2021-06-29] MED LIST changes: -D31000TA2 PO; -ISOVUE-370 76% 100ML VIAL As Ordered ONE; +VITA100093 PO
== END ==
LOC: M ADAMS 14:46
PROVIDERS: ATTEND Family Medicine
DX: R06.02 Shortness of breath (principal)

== ENCOUNTER → 2021-07-13 | Outpatient (CLI) | payer BC ==
[~2021-07-13] MED LIST changes: +ISOVUE-370 76% 100ML VIAL As Ordered ONE
== END ==
LOC: M RAD 14:35
PROVIDERS: ATTEND Family Medicine
DX: R91.8 Other nonspecific abnormal finding of lung field (principal)

== ENCOUNTER → 2021-07-18 | Outpatient (CLI) | payer BC ==
[~2021-07-18] MED LIST changes: -ISOVUE-370 76% 100ML VIAL As Ordered ONE
[2021-07-18 18:52] LABS: BASO % 0.3 % (0.0-1.0); EOS # 0.2 10^3/uL (0.0-0.5); HEMATOCRIT 36.4 % (36.0-47.0); HEMOGLOBIN 12.2 g/dl (12.0-15.5); LYMPH # 1.3 10^3/uL (1.5-5.0); LYMPH % 17.9 % (24.0-44.0); MEAN CORPUSCULAR HEMOGLOBIN 30.3 pg (27.0-33.0); MEAN CORPUSCULAR HGB CONC 33.5 g/dl (32.0-36.5); MEAN CORPUSCULAR VOLUME 90.5 fl (80.0-96.0); MONO # 0.5 10^3/uL (0.0-0.8); MONO % 6.4 % (2.0-8.0); NEUTROPHILS # 5.5 10^3/uL (1.5-8.5); NEUTROPHILS % 72.9 % (36.0-66.0); PLATELET COUNT, AUTOMATED 406 10^3/uL (150-450); RED BLOOD COUNT 4.02 10^6/uL (4.00-5.40); WHITE BLOOD COUNT 7.5 10^3/uL (4.0-10.0)
[2021-07-18 18:56] LABS: INR 0.93; PROTHROMBIN TIME 12.9 SECONDS (12.7-14.5)
[2021-07-18 18:57] LABS: PARTIAL THROMBOPLASTIN TIME 29.1 SECONDS (25.9-37.0)
[2021-07-18 19:04] LABS: CALCIUM LEVEL 9.5 MG/DL (8.8-10.2); CREATININE FOR GFR 0.98 MG/DL (0.55-1.30); GLOMERULAR FILTRATION RATE 58.6 (>39); POTASSIUM SERUM 3.5 MEQ/L (3.5-5.1)
== END ==
LOC: M ADAMS 13:47
PROVIDERS: ATTEND Surgery Vascular Surgery
DX: I70.213 Atherosclerosis of native arteries of extremities with intermittent claudication, bilateral legs (principal)

== ENCOUNTER 2022-02-17 12:38 | Emergency (ER) | payer BC ==
[~2022-02-17] VITALS: Ht 162.6 cm; Wt 66.5 kg
[~2022-02-17 12:38] MED LIST changes: +ASPI81TA26 PO; +CLOP75TA2 PO; -OMEP-173
[2022-02-17] MEDS ORDERED: LIDOCAINE W/EPINEPHRINE 1% 20ML VIAL SC ONE (13:35)
[2022-02-17] MEDS ORDERED: BOOSTRIX/ADACEL VACCINE (DIPHTH/PERTUSS/ACELL/TETANUS) 0.5ML SYR IM ONE (13:35)
[2022-02-17 14:47] LABS: BASO % 0.1 % (0.0-1.0); EOS # 0.1 10^3/uL (0.0-0.5); EOS % 0.9 % (0.0-3.0); LYMPH # 0.9 10^3/uL (1.5-5.0); LYMPH % 9.6 % (24.0-44.0); MEAN CORPUSCULAR HEMOGLOBIN 29.8 pg (27.0-33.0); MEAN CORPUSCULAR HGB CONC 34.5 g/dl (32.0-36.5); MEAN CORPUSCULAR VOLUME 86.3 fl (80.0-96.0); MONO # 0.5 10^3/uL (0.0-0.8); MONO % 5.3 % (2.0-8.0); NEUTROPHILS # 7.4 10^3/uL (1.5-8.5); NEUTROPHILS % 83.6 % (36.0-66.0); PLATELET COUNT, AUTOMATED 334 10^3/uL (150-450); RED BLOOD COUNT 3.36 10^6/uL (4.00-5.40); WHITE BLOOD COUNT 8.8 10^3/uL (4.0-10.0)
[2022-02-17 14:57] LABS: INR 0.97; PARTIAL THROMBOPLASTIN TIME 26.2 SECONDS (24.8-34.2); PROTHROMBIN TIME 13.1 SECONDS (12.5-14.5)
[2022-02-17 15:25] LABS: RSV AMPLIFICATION NEGATIVE (NEGATIVE)
[2022-02-17 15:39] LABS: BLOOD UREA NITROGEN 11 MG/DL (7-18); CALCIUM LEVEL 8.7 MG/DL (8.8-10.2); CARBON DIOXIDE LEVEL 24 MEQ/L (21-32); CHLORIDE LEVEL 99 MEQ/L (98-107); CREATININE FOR GFR 0.76 MG/DL (0.55-1.30); ETHYL ALCOHOL (ETHANOL) 0.003 % (0.000-0.010); FREE T4 1.03 NG/DL (0.76-1.46); GLOMERULAR FILTRATION RATE > 60.0 (>39); GLUCOSE, FASTING 85 MG/DL (70-100); MAGNESIUM LEVEL 1.9 MG/DL (1.8-2.4); POTASSIUM SERUM 4.2 MEQ/L (3.5-5.1); SODIUM LEVEL 130 MEQ/L (136-145)
[2022-02-17 16:23] VITALS: BP 165/72
== END 2022-02-17 16:30 | disposition home or self-care (01) ==
LOC: EDSEX 12:38 → M ED 12:38 → EDBD 12:38 → M ED 16:30
DX: S01.412A Laceration without foreign body of left cheek and temporomandibular area, initial encounter (principal); W01.190A Fall on same level from slipping, tripping and stumbling with subsequent striking against furniture, initial encounter; Y92.098 Other place in other non-institutional residence as the place of occurrence of the external cause; R91.8 Other nonspecific abnormal finding of lung field; I10 Essential (primary) hypertension; E78.5 Hyperlipidemia, unspecified; J44.9 Chronic obstructive pulmonary disease, unspecified; K21.9 Gastro-esophageal reflux disease without esophagitis; M54.50 Low back pain, unspecified; F33.9 Major depressive disorder, recurrent, unspecified; F17.210 Nicotine dependence, cigarettes, uncomplicated; Z79.899 Other long term (current) drug therapy; Z79.82 Long term (current) use of aspirin; Z79.02 Long term (current) use of antithrombotics/antiplatelets

== ENCOUNTER 2022-05-19 10:05 | Emergency (ER) | payer BC ==
[~2022-05-19] VITALS: Ht 162.6 cm; Wt 61.4 kg
[2022-05-19 10:30] VITALS: BP 167/79
== END 2022-05-19 11:50 | disposition home or self-care (01) ==
LOC: EDBD 10:05 → M ED 10:05
DX: M25.362 Other instability, left knee (principal); M17.12 Unilateral primary osteoarthritis, left knee; Z87.81 Personal history of (healed) traumatic fracture; I10 Essential (primary) hypertension; K21.9 Gastro-esophageal reflux disease without esophagitis; J44.9 Chronic obstructive pulmonary disease, unspecified; E78.9 Disorder of lipoprotein metabolism, unspecified; F17.200 Nicotine dependence, unspecified, uncomplicated; Z99.89 Dependence on other enabling machines and devices; Z79.899 Other long term (current) drug therapy; Z79.02 Long term (current) use of antithrombotics/antiplatelets; Z79.82 Long term (current) use of aspirin

== ENCOUNTER → 2022-12-19 | Outpatient (REF) | payer BC ==
[2022-12-19 18:41] LABS: LIPASE 38 U/L (12-53)
[2022-12-19 18:42] LABS: AMYLASE 38 U/L (30-118)
== END ==
LOC: M LAB REF 17:14
PROVIDERS: ATTEND Physician Assistant Medical
DX: R10.9 Unspecified abdominal pain (principal)

== ENCOUNTER → 2023-03-14 | Outpatient (REF) | payer BC ==
[2023-03-14 17:05] LABS: PERCENT SATURATION 6.5 % (13.2-45.0)
[2023-03-14 17:07] LABS: FERRITIN 3.9 NG/ML (7.3-270.7)
== END ==
LOC: M LAB REF 16:26
PROVIDERS: ATTEND Family Medicine
DX: D64.9 Anemia, unspecified (principal)

== ENCOUNTER → 2023-03-30 | Outpatient (CLI) | payer BC ==
[~2023-03-30] MED LIST changes: +ISOVUE-370 76% 100ML VIAL As Ordered ONE
== END ==
LOC: M RAD 09:46
PROVIDERS: ATTEND Family Medicine
DX: R91.1 Solitary pulmonary nodule (principal)
CPT/HCPCS: 71260; Q9967

== ENCOUNTER → 2023-05-27 | Outpatient (REF) | payer BC ==
[~2023-05-27] MED LIST changes: -ISOVUE-370 76% 100ML VIAL As Ordered ONE
== END ==
LOC: M WUC 19:26
PROVIDERS: ATTEND Physician Assistant
DX: R32 Unspecified urinary incontinence (principal)

== ENCOUNTER → 2023-10-26 | Outpatient (REF) | payer BC ==
[2023-10-26 14:09] LABS: APPEARANCE, URINE CLEAR (CLEAR); BACTERIA, URINE AUTO NEGATIVE (NEGATIVE); BILIRUBIN, URINE AUTO NEGATIVE (NEGATIVE); BLOOD, URINE BLOOD NEGATIVE (NEGATIVE); COLOR, URINE YELLOW (YELLOW); GLUCOSE, URINE (UA) AUTO NEGATIVE (NEGATIVE); KETONE, URINE AUTO NEGATIVE (NEGATIVE); LEUKOCYTE ESTERASE, URINE AUTO NEGATIVE (NEGATIVE); MUCUS, URINE SMALL (NEGATIVE); NITRITE, URINE AUTO NEGATIVE (NEGATIVE); PROTEIN, URINE AUTO NEGATIVE (NEGATIVE); RBC, URINE AUTO 0 /HPF (0-3); SPECIFIC GRAVITY URINE AUTO 1.016 (1.002-1.035); SQUAMOUS EPITHELIAL CELL UR AU 1 /HPF (0-6); WBC, URINE AUTO 1 /HPF (0-3)
== END ==
LOC: M SMT 12:56
PROVIDERS: ATTEND Physician Assistant
DX: R32 Unspecified urinary incontinence (principal)

== ENCOUNTER 2024-02-04 13:13 | Day surgery (SDC) | payer BC ==
[~2024-02-04] VITALS: Ht 162.6 cm; Wt 70.1 kg
[~2024-02-04 13:13] MED LIST changes: +NS 250 ML IV ONE; +TAFL1DRO2 OU
[2024-02-04] MEDS ORDERED: LIDOCAINE 2% 100MG/5ML SDV (FOR ANES.) As Ordered ONE (14:12)
[2024-02-04] MEDS ORDERED: propofoL 200 MG/20 ML VIAL As Ordered ONE (14:14)
[2024-02-04] MEDS ORDERED: fentaNYL 100 MCG/2 ML INJECTION As Ordered ONE (14:15)
[2024-02-04 14:51] VITALS: TEMP 97.6
[2024-02-04 15:05] VITALS: BP 146/76; O2SAT 96
== END 2024-02-04 15:05 | disposition home or self-care (01) ==
LOC: M OPP 13:13
PROVIDERS: ATTEND Internal Medicine Gastroenterology
DX: K22.70 Barrett's esophagus without dysplasia (principal); K31.A0 Gastric intestinal metaplasia, unspecified; K44.9 Diaphragmatic hernia without obstruction or gangrene; K22.89 Other specified disease of esophagus; K21.9 Gastro-esophageal reflux disease without esophagitis; I10 Essential (primary) hypertension; E78.00 Pure hypercholesterolemia, unspecified; J44.9 Chronic obstructive pulmonary disease, unspecified; N39.3 Stress incontinence (female) (male); F17.210 Nicotine dependence, cigarettes, uncomplicated; Z79.899 Other long term (current) drug therapy; Z79.82 Long term (current) use of aspirin; Z79.02 Long term (current) use of antithrombotics/antiplatelets; Z90.49 Acquired absence of other specified parts of digestive tract; Z86.718 Personal history of other venous thrombosis and embolism
CPT/HCPCS: 43239; 88305; J3010

== ENCOUNTER → 2024-03-31 | Outpatient (CLI) | payer BC ==
[~2024-03-31] MED LIST changes: +ISOVUE-370 76% 100ML VIAL As Ordered ONE; -NS 250 ML IV ONE
== END ==
LOC: M RAD 11:40
PROVIDERS: ATTEND Family Medicine
DX: R91.8 Other nonspecific abnormal finding of lung field (principal)

== ENCOUNTER → 2024-04-18 | Outpatient (REF) | payer BC ==
[~2024-04-18] MED LIST changes: -ISOVUE-370 76% 100ML VIAL As Ordered ONE
[2024-04-18 16:51] LABS: PERCENT SATURATION 5.6 % (13.2-45.0)
[2024-04-18 16:54] LABS: FERRITIN 9.6 NG/ML (7.3-270.7)
== END ==
LOC: M LAB REF 16:15
PROVIDERS: ATTEND Family Medicine
DX: D64.9 Anemia, unspecified (principal)

== ENCOUNTER → 2024-10-21 | Outpatient (REF) | payer BC ==
[~2024-10-21] MED LIST changes: +PRAV10TA PO; -PRAV10TA4 PO; -PRAV20TA2 PO; +PRAV20TA78 PO
== END ==
LOC: M LAB REF 08:53
PROVIDERS: ATTEND Family Medicine
DX: D50.9 Iron deficiency anemia, unspecified (principal)

== ENCOUNTER → 2025-03-23 | Outpatient (REF) | payer BC ==
[~2025-03-23] MED LIST changes: +HYDR12.510 PO; -HYDR12CA PO
[2025-03-23 19:01] LABS: IRON (FE) 39.0 UG/DL (50-170); PERCENT SATURATION 11.0 % (13.2-45.0)
== END ==
LOC: M LAB REF 17:17
PROVIDERS: ATTEND Family Medicine
DX: D50.9 Iron deficiency anemia, unspecified (principal)

== ENCOUNTER → 2025-04-01 | Outpatient (CLI) | payer BC ==
[~2025-04-01] MED LIST changes: +ISOVUE-370 76% 100 ML VIAL ONE
== END ==
LOC: M PLAIMG 13:03
PROVIDERS: ATTEND Family Medicine
DX: R91.1 Solitary pulmonary nodule (principal)